=== PATIENT | male | born 1935 | race Caucasian/White ===

== ENCOUNTER 2020-04-29 09:52 | Outpatient (NON) | payer MEDICARE, BC, SELFPAY ==
[2020-04-29 21:13] LABS: SARS-CoV-2 RNA PCR Negative
== END 2020-04-29 09:53 ==
PROVIDERS: Visit Provider Registered Nurse
DX: Z20.828 Contact with and (suspected) exposure to other viral communicable diseases (principal); R43.2 Parageusia; J34.89 Other specified disorders of nose and nasal sinuses; R53.83 Other fatigue
CPT/HCPCS: 87635; C9803; U0003

== ENCOUNTER 2021-06-03 15:15 | Outpatient (CLI) | payer MEDICARE, BC, SELFPAY ==
--- NOTE | ~2021-06-03 | MR_ITS ---
EXAMINATION: MR brain/brain stem wo/w con DATE: 06/03/2021 17:01 INDICATION: Memory loss. Confusion. TECHNIQUE: Magnetic resonance imaging (MRI) of the brain and brainstem was performed without and with 13 mL MultiHance intravenous contrast. Sequences included sagittal and axial T1-weighted FSE, axial diffusion-weighted FS EPI, axial T2*-weighted GRE, axial T2-weighted FLAIR Propeller, and axial T2-we ighted Propeller. Postcontrast sequences included axial, sagittal, and coronal T1-weighted FSE. Appar ent diffusion coefficient (ADC) maps were created. COMPARISON: Sinuses CT 03/17/2016 FINDINGS: There is chronic encephalomalacia in left frontotemporal region. There is diffuse brain vol ume loss. There is an extra-axial fluid collection anterior to left frontal and temporal lobes demarc ated by a membrane with signal equivalent to cerebral spinal fluid, likely a hygroma or chronic subdu ral hematoma. No midline shift. There are scattered areas of nonspecific increased T2-weighted signal intensity in the cerebral white matter. The ventricles are normal in size. There is mild mucosal thi ckening in the paranasal sinuses. The orbits are normal. There is a trace right mastoid effusion. The re are changes of left-sided craniotomy. IMPRESSION: 1. Chronic left frontotemporal encephalomalacia with overlying fluid collection that may be a hygroma or chronic subdural hematoma, stable from 03/17/16. 2. Moderate nonspecific cerebral white matter disease, which likely represents chronic small vessel i schemic disease. Reviewed, dictated and finalized at location A. R SCHOOL PROGRAM ASSISTANT IMPRESSION: 1. Chronic left frontotemporal encephalomalacia with overlying fluid collection that may be a hygroma or chronic subdural hematoma, stable from 03/17/16. 2. Moderate nonspecific cerebral white matter disease, which likely represents chronic small vessel ischemic disease.
[2021-06-03 16:20] LABS: Estimated Glomerular Filt Rate > 60
== END 2021-06-03 15:16 | disposition home or self-care (01) ==
LOC: ANHIMG 15:22
PROVIDERS: PCP Student in an Organized Health Care Education/Training Program; Visit Provider Student in an Organized Health Care Education/Training Program
DX: R41.3 Other amnesia (principal); Z98.890 Other specified postprocedural states; G93.89 Other specified disorders of brain; R90.82 White matter disease, unspecified
CPT/HCPCS: 70553; A9577

== ENCOUNTER 2022-09-21 14:40 | Inpatient (IN) | payer MEDICARE, BC, SELFPAY ==
[2022-09-21] VITALS (29 sets, daily range): BP systolic 101–185; BP diastolic 62–171; PULSE 63–150; RESP 12–23; TEMP 36.4–37.2; O2SAT 94–99; BMI 20.5
--- NOTE | ~2022-09-21 | CT_ITS ---
CT head without contrast Indication: Word finding difficulties Technique: Serial scans were obtained through the brain without the administration of contrast. Dose reduction technique was used on this scan by utilizing automated exposure control and iterative recon struction technique. The dose-length product (DLP) was 605.33 mGy-cm. Findings: There is no evidence of acute intracranial hemorrhage, mass lesion, or acute infarct. There is probable postsurgical encephalomalacia involving the left anterior temporal lobe and left frontal lobe, with chronic left frontal subdural hygroma present. The ventricles and subarachnoid spaces are dilated, consistent with moderate atrophy. Low attenuation regions are seen within the periventricu lar white matter bilaterally, likely representing changes from chronic microvascular ischemic disease . There is no evidence of edema, mass effect or midline shift. The visualized paranasal sinuses and mastoid air cells are clear. Impression: No acute intracranial hemorrhage, mass, or acute infarct. Postsurgical encephalomalacia of the left temporal and left frontal lobes, with left frontal chronic subdural hygroma. Atrophy and chronic white matter changes, as above. Reviewed, dictated and finalized at [facility]. INEEDLE SHIRRER Impression: No acute intracranial hemorrhage, mass, or acute infarct. Postsurgical encephalomalacia of the left temporal and left frontal lobes, with left frontal chronic subdural hygroma. Atrophy and chronic white matter changes, as above.
--- NOTE | ~2022-09-21 | XR_ITS ---
EXAMINATION: XR chest 1V portable DATE: 09/21/2022 15:36 INDICATION: Atrial fibrillation with rapid ventricular response. Chest discomfort. Dizziness and ligh theadedness. TECHNIQUE: frontal view of the chest was obtained. COMPARISON: None FINDINGS: 9 mm calcified nodule at the left apex and calcified left hilar lymph nodes consistent with old granu lomatous disease. No other airspace opacities, pulmonary edema, pleural effusion or pneumothorax. The cardiomediastinal silhouette is normal. Mild degenerative skeletal changes in the spine and bilatera l shoulders. IMPRESSION: 1. No acute cardiopulmonary disease. Reviewed, dictated and finalized at location A. O PROGRAM CHECKER
--- NOTE | 2022-09-21 14:49 | ECG_ITS ---
Measurements Intervals [place] Rate: 138 P: IN: 0 QRS: 9 QRSD: 87 T: 0 QT: 210 QTc: 319 Interpretive Statements ATRIAL FLUTTER/TACHYCARDIA WITH RAPID VENTRICULAR RESPONSE INCOMPLETE RIGHT BUNDLE BRANCH BLOCK ST ABNORMALITY IN DIFFUSE LEADS- CONSIDER ISCHEMIA ABNORMAL ECG NO PREVIOUS ECG AVAILABLE FOR COMPARISON Electronically Signed On 09-22-2022 6:58:34 FEATHEREDGE MACHINE OPERATOR by Miquel Cervantes D.O.
[2022-09-21 15:07] LABS: Basophils Percent Auto 0.3 % (0.2-1.2); Eosinophils Percent Auto 0.5 % (0-4.4); Hematocrit 39.8 % (42.0-52.0); Hemoglobin 13.6 g/dL (14.0-18.0); Immature Granulocyte Absolute 0.01 K/mm3 (0.00-0.031); Immature Granulocyte Percent A 0.3 % (0-0.5); Lymphocytes Absolute Auto 1.54 K/mm3 (0.9-3.2); Lymphocytes Percent Auto 38.8 % (18.3-44.2); Mean Corpuscular HGB Conc 34.2 g/dl (32-36); Mean Corpuscular Hemoglobin 33.2 pg (26-34); Mean Corpuscular Volume 97.1 fl (80-100); Mean Platelet Volume 9.5 fl (7.4-10.4); Monocytes Absolute Auto 0.2 K/mm3 (0.1-0.6); Neutrophils Absolute Auto 2.2 K/mm3 (1.3-6.7); Neutrophils Percent Auto 55.1 % (45.5-73.1); Platelet Count Result 148 k/mm3 (150-375); Red Cell Distribution Width 11.9 % (11.5-14.5)
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
[2022-09-21 15:14] LABS: Alanine Aminotransferase 24 U/L (6-50); Alkaline Phosphatase 45 U/L (38-126); Anion Gap 8 mmol/L (8-16); Aspartate Amino Transferase 26 U/L (17-59); Bilirubin,Total 0.7 mg/dL (0.2-1.3); Blood Urea Nitrogen 19 mg/dL (9-20); Calcium 9.4 mg/dL (8.4-10.2); Carbon Dioxide 26 mmol/L (22-30); Chloride 102 mmol/L (98-107); Estimated CRCL calculation 44 ml/min; Estimated Glomerular Filt Rate > 60; Glucose 134 mg/dL (65-110); Sodium 136 mmol/L (137-145)
--- NOTE | 2022-09-21 15:17 | ED.ARRPALP ---
HPI - Arrhythmia/Palpitations General Chief Complaint: Arrhythmia/Palpitations Stated Complaint: dizziness, irreg heart rate Time Seen by Provider: 09/21/22 14:51 History of Present Illness HPI narrative: Patient is an 87-year-old male presenting with palpitations. Patient states that he was shopping today when he developed palpitations, chest pressure, lightheadedness. EMS was called and found him to be in A-fib RVR with a rate in the 130s to 140s. States that he continues to feel lightheaded with some chest pressure. States that he has been told that he has an irregular heart rate in the past but he does not currently take any medications for it. Prior to this episode, he was in his normal state of health. Denies recent fevers, shortness of breath, cough, abdominal pain, vomiting, diarrhea, leg swelling. Related Data Allergies Allergy/AdvReac Type Severity Reaction Status Date / Time Penicillins Allergy Mild Verified 07/06/19 12:03 Review of Systems Review of Systems: All systems reviewed & are unremarkable except as noted in HPI and below PMFSH Past Medical History Medical History Hyperlipidemia Hypertension Prostate cancer (2008) Status post radiation. Surgical History Surgical History History of cholecystectomy History of craniotomy (1980) Resection benign cyst. Family History Family History Other Heart disease Hypertension Social History Social History Social History: Surrogate medical decision maker: Landon Roberson, spouse. Code status: Full code. Smoking status: Never smoker Alcohol intake: current Substance use: never Lack of Transportation: No Lack of Food: Never True Current Housing: I Have Housing Concerned About Future Housing: No Difficulty Paying Gas/Electric Bills: No Difficulty Paying for Meds: No Currently Unemployed: No Education: Bachelor's Degree Difficulty w/ Childcare or Family Care: No Additional living arrangements comments: Lives in [place]. lives at [place]. Son Landon lives next door. Additional occupation/education comments: Retired from [employer]. Spiritual care concerns: No Exam Narrative: GENERAL: Mildly distressed secondary to symptoms HEAD: Normocephalic, atraumatic. EYES: PERRLA and EOMI. ENT: Nares clear, no rhinorrhea or epistaxis. Mucous membranes moist. NECK: Supple. CHEST: Clear to auscultation. No respiratory distress. HEART: Irregularly irregular rhythm, tachycardic with rates in the 130s to 150s ABDOMEN: Soft, nontender, nondistended EXTREMITIES: Normal range of motion. No edema. SKIN: Warm, dry, no rash. NEURO: No focal deficits. Alert and oriented x3. PSYCH: Normal mood and affect. Course Vital Signs Vital signs: Vital Signs Pulse Rate 142 H 09/21/22 14:41 Respiratory Rate 17 09/21/22 14:41 Blood Pressure 136/102 H 09/21/22 14:41 Pulse Oximetry 99 09/21/22 14:41 Oxygen Delivery Room Air 09/21/22 14:41 Temperature 97.2 F L 09/23/22 12:00 Pulse Rate 77 09/23/22 12:00 Respiratory Rate 16 09/23/22 12:00 Blood Pressure 157/92 H 09/23/22 12:00 Pulse Oximetry 100 09/23/22 12:00 Oxygen Delivery Room Air 09/23/22 08:00 MDM - Arrhythmia/Palpitations MDM Narrative Medical decision making narrative: Patient is an 87-year-old male presenting with palpitations and lightheadedness. Patient is tachycardic in the 130s to 150s on arrival. Saturating 99% on room air. Blood pressures are adequate 110s to 140s over 80s to 100s. EKG per my interpretation shows atrial flutter with RVR. There are ST depressions that I suspect are rate related. When I went into the room, the patient now appears to be in A-fib, his rate is very irregular. Fluids are ongoing, will give 1
[2022-09-21] MEDS: dilTIAZem 100 MG/100 ML 100 MG/100 ML BAG IV CONT (15:18)
[2022-09-21] MEDS: dilTIAZem HCl INJ 25 MG/5 ML VIAL 10 MG IV PUSH (15:18)
[2022-09-21 15:58] LABS: Magnesium 1.7 mg/dL (1.6-2.3)
[2022-09-21 16:07] LABS: Prothrombin Time 13.1 Seconds (11.1-14.7)
[2022-09-21 16:08] LABS: Partial Thromboplastin Time 25.4 SECONDS (22.3-36.8)
[2022-09-21 16:11] LABS: NT Pro B Type Natriuretic Pept 531 pg/mL (19.9-100); Troponin I < 0.012 ng/mL (0.000-0.034)
--- NOTE | 2022-09-21 16:45 | PM.IMHP ---
H&P: HPI History of Present Illness Date/Time: 09/21/22 16:45 Chief Complaint: Dizziness. Narrative: This is an 87-year-old male with hypertension who presented to the emergency department via EMS from a local establishment for evaluation of dizziness. Patient provides the following history. He was in his usual state of health this morning and was out shopping when he developed sudden onset of weakness, dizziness, and feelings of near-syncope. Bystanders came to the patient's aid and emergency services were contacted. On EMS arrival his blood pressure was stable and he was found to be in atrial fibrillation with rapid ventricular response. He was bolused with 10 mg IV diltiazem and was started on a drip with mild improvement in his rate. He thinks he has a history of atrial fibrillation and he is on diltiazem though I do not see that he is on anticoagulation. He has no sensations of racing heart or irregular heartbeat. He has not had any chest heaviness or discomfort and he denies exertional chest pain. He has not had any nausea or vomiting. No fever, chills, or sweats. No recent cold or flu symptoms. He does not drink much in the way of alcohol. He typically has a cup of coffee in the morning with breakfast and more recently has been drinking iced coffees throughout the day which is new for him. Currently he is resting comfortably and he has no specific complaints. Review of Systems Review of Systems: Twelve systems were reviewed. He admits that his memory has not been great for the last couple of years. In the same amount of time he has had issues with word finding as well. Son states he is at his baseline, nothing has changed. He has no history of stroke to his knowledge. Brain MRI in May 2021 showed chronic left frontotemporal encephalomalacia and moderate nonspecific cerebral white matter disease. He has never been diagnosed with dementia. No vertigo, focal weakness, paresthesias, facial droop, or difficulty swallowing. He lives home alone, his is in [place]. He is typically independent of activities of daily living. Except as documented, all other systems were reviewed and are negative. [facility] Past Medical History Medical History Hyperlipidemia Hypertension Prostate cancer (2008) Status post radiation. Surgical History Surgical History History of cholecystectomy History of craniotomy (1980) Resection benign cyst. Family History Family History (Updated 09/21/22 @ 21:57 by Elham Quevedo PA-C) Other Heart disease Hypertension Social History Social History (Updated 09/21/22 @ 22:05 by Elham Quevedo PA-C) Social History: Surrogate medical decision maker: Landon Roberson, spouse. Code status: Full code. Smoking status: Never smoker Alcohol intake: current Substance use: never Lack of Transportation: No Lack of Food: Never True Current Housing: I Have Housing Concerned About Future Housing: No Difficulty Paying Gas/Electric Bills: No Difficulty Paying for Meds: No Currently Unemployed: No Education: Bachelor's Degree Difficulty w/ Childcare or Family Care: No Additional living arrangements comments: Lives in [place]. lives at [place]. Son Landon lives next door. Additional occupation/education comments: Retired from [employer]. Spiritual care concerns: No Meds Home Medications and Allergies Home Medications Medication Instructions Recorded Confirmed Type diltiazem HCl 120 mg 120 mg PO DAILY 07/06/19 09/21/22 History capsule,extended release 24 hr losartan 50 mg tablet 50 mg PO DAILY 07/06/19 09/21/22 History terazosin 2 mg capsule 2 mg PO DAILY 07/06/19 09/21/22 History Allergies Allergy/AdvReac Type Severity Reaction Status Date / Time Penicillins Allergy Mild Verified 07/06/19 12:03 Vital Signs Eun
--- NOTE | 2022-09-21 18:10 | ECG_ITS ---
Measurements Intervals [place] Rate: 69 P: 81 ID: [id number] QRS: 14 QRSD: 94 T: 35 QT: 418 QTc: 449 Interpretive Statements SINUS RHYTHM SUPRAVENTRICULAR TRIGEMINY INCOMPLETE RIGHT BUNDLE BRANCH BLOCK ABNORMAL ECG NO PREVIOUS ECG AVAILABLE FOR COMPARISON Electronically Signed On 09-22-2022 6:38:12 LOCK UP WORKER by Miquel Cervantes D.O.
[2022-09-21 18:12] LABS: Influenza A QL RT-PCR Negative (Negative); Influenza B QL RT-PCR Negative (Negative); SARS-CoV-2 RNA PCR Negative
[2022-09-21 18:51] LABS: Troponin I 0.068 ng/mL (0.000-0.034)
--- NOTE | 2022-09-21 20:02 | ADMGEN ---
This patient, Sincere Roberson, was admitted to IMU Room 209-01. Patient/family oriented to hospital policies and general routines including ID bracelet, bed and alarms, visiting hours, pain management, procedures, bathroom and other care routines, personal items, smoking policy, room service/diet, and visiting hours. Information on how to activate the Rapid Response Team has been discussed. Patient/Family are encouraged to report perceived risks to care and to ask questions if they do not understand what they are told or what they should do.
[2022-09-21 22:06] LABS: Troponin I 0.285 ng/mL (0.000-0.034)
[2022-09-21] MEDS: dilTIAZem HCL 30 MG TABLET PO (23:52)
[2022-09-21] MEDS: ACETAMINOPHEN 325 MG TABLET 650 MG PO (23:56)
[2022-09-22] VITALS (15 sets, daily range): BP systolic 102–152; BP diastolic 49–79; PULSE 50–109; RESP 14–16; TEMP 36.3–36.9; O2SAT 95–100
[2022-09-22 05:02] LABS: Hematocrit 34.7 % (42.0-52.0); Mean Corpuscular HGB Conc 34.6 g/dl (32-36); Mean Corpuscular Hemoglobin 33.1 pg (26-34); Mean Corpuscular Volume 95.9 fl (80-100); Mean Platelet Volume 9.7 fl (7.4-10.4); Platelet Count Result 155 k/mm3 (150-375); Red Blood Count 3.62 M/mm3 (4.6-6.20); Red Cell Distribution Width 11.9 % (11.5-14.5); White Blood Count 3.8 K/mm3 (4.5-10.0)
[2022-09-22 05:13] LABS: Alanine Aminotransferase 21 U/L (6-50); Albumin Level 3.3 g/dL (3.5-5.1); Alkaline Phosphatase 36 U/L (38-126); Anion Gap 2 mmol/L (8-16); Aspartate Amino Transferase 23 U/L (17-59); Bilirubin,Total 0.6 mg/dL (0.2-1.3); Blood Urea Nitrogen 17 mg/dL (9-20); Calcium 8.9 mg/dL (8.4-10.2); Carbon Dioxide 28 mmol/L (22-30); Chloride 102 mmol/L (98-107); Estimated CRCL calculation 52 ml/min; Estimated Glomerular Filt Rate > 60; Glucose 98 mg/dL (65-110); Magnesium 1.9 mg/dL (1.6-2.3); Potassium 3.9 mmol/L (3.4-5.0); Sodium 132 mmol/L (137-145)
[2022-09-22] MEDS: dilTIAZem HCL 30 MG TABLET PO ×3 (08:49→18:12)
[2022-09-22] MEDS: LOSARTAN POTASSIUM 50 MG TABLET PO (08:49)
[2022-09-22] MEDS: TERAZOSIN HCL 1 MG CAPSULE 2 MG PO (08:49)
--- NOTE | 2022-09-22 10:43 | PM.CNCAR ---
Assessment and Plan Assessment and plan (1) Atrial fibrillation with rapid ventricular response: Code(s): I48.91 - Unspecified atrial fibrillation Status: Acute Assessment and Plan: History of atrial fibrillation. Not on anticoagulation at home. From what I can see from [facility], patient follows with Cardiology at [facility]. Already converted back to sinus rhythm. On Diltazem 120mg PO daily at home. Has been started on Diltiazem 30mg Q6H here, recommend to transition to long-acting Diltiazem prior to discharge. Not on anticoagulation as an outpatient. Will defer anticoagulation to his primary etl tester as an outpatient. If patient has recurrences of AFIB, can increase PO Diltiazem if blood pressure allows, or start beta miguelina. Cardiology will sign off at this time. (2) Elevated troponin: Code(s): R77.8 - Other specified abnormalities of plasma proteins Status: Acute Assessment and Plan: Troponin of 0.068 and 0.285. In the setting of AFIB with RVR. No chest pain. Likely demand ischemia from AFIB with RVR rather than ACS. Initial EKG here showed atrial flutter with RVR with HR 138BPM, noted with diffuse ST depressions. Repeat EKG when in sinus without the depressions. Patient likely has underlying CAD, however, is without any chest pain. TTE 09/22 shows LVEF >70% without regional wall motion abnormalities, mildly enlarged RV, mildly enlarged RA, no significant valvular disease. No further inpatient workup at this time. History of Present Illness History of Present Illness Consult date/time: 09/22/22 10:43 Requesting physician: Jason Henley MD Consult reason: atrial fibrillation Reason For Visit: a fib with vr Narrative: We are consulted for atrial fibrillation with RVR. This is an 87-year-old male with a history of hypertension who presented to the ER for evaluation of dizziness. Patient reported that he was in his usual state of health when he developed weakness, dizziness. On EMS arrival, he was noted to be in atrial fibrillation. He was given 10mg IV Diltazem and started on a drip. Patient converted to sinus rhythm. Dilt drip stopped and patient restarted on PO Diltiazem. CT brain pending as previous MRI showed possible chronic subdural hematomas. Patient tells me he has a history of atrial fibrillation. Not on anticoagulation at home. From what I can see from [facility], patient follows with Cardiology at [facility]. Review of Systems Review of Systems: All systems reviewed & are unremarkable except as noted in HPI and below (HPI) [facility] Past Medical History Medical History Hyperlipidemia Hypertension Prostate cancer (2008) Status post radiation. Surgical History Surgical History History of cholecystectomy History of craniotomy (1980) Resection benign cyst. Family History Family History Other Heart disease Hypertension Social History Social History Social History: Surrogate medical decision maker: Landon Roberson, spouse. Code status: Full code. Smoking status: Never smoker Alcohol intake: current Substance use: never Lack of Transportation: No Lack of Food: Never True Current Housing: I Have Housing Concerned About Future Housing: No Difficulty Paying Gas/Electric Bills: No Difficulty Paying for Meds: No Currently Unemployed: No Education: Bachelor's Degree Difficulty w/ Childcare or Family Care: No Additional living arrangements comments: Lives in [place]. lives at [place]. Son Landon lives next door. Additional occupation/education comments: Retired from [employer]. Spiritual care concerns: No Meds Home Medications and Allergies Home Medications Medication Instructions Recorded
--- NOTE | 2022-09-22 11:56 | PM.IMPN ---
Progress Note: A&P Assessment and Plan (1) Atrial fibrillation with rapid ventricular response: Code(s): I48.91 - Unspecified atrial fibrillation Status: Acute Assessment and Plan: Patient reports he does not follow with home and family living professor. Heart rate controlled. 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 Await cardiac evaluation Echo pending (2) Elevated troponin: Code(s): R77.8 - Other specified abnormalities of plasma proteins Status: Acute (3) Hypertension: Code(s): I10 - Essential (primary) hypertension Status: Acute Subjective Date/time seen: 09/22/22 11:56 No new complaints, heart rate controlled Exam Narrative: General: Well-developed, nontoxic-appearing elderly gentleman supine in bed no acute distress. Weight: 63 kg. BMI: 20.5. HEENT: Left scalp defect from prior craniotomy. Wearing corrective lenses. PERRL, EOMI. Sclera anicteric. Oral mucosa moist. Neck: Supple. No obvious carotid bruits. Respiratory: Respirations are nonlabored and lungs are clear to auscultation bilaterally. Cardiovascular: Irregularly irregular rate and rhythm. Gastrointestinal: Abdomen is soft, nontender, and nondistended with positive bowel sounds. Skin: Warm and dry. No rash or lesions on limited exam. Extremities: No cyanosis, clubbing, or edema. Radial and pedal pulses intact. Neurological: Alert and oriented x4 though he has evidence of memory loss. Cranial nerves 2-12 are grossly intact. Speech is clear but he does have troubles coming up with words that he wants to say. Son reports that this is chronic and unchanged for the last year or more. No facial asymmetry. Hand mold finisher and foot pushes equal bilaterally. No gross focal deficits to casual conversation. Psychiatric: Pleasant and cooperative with appropriate mood and affect. Evidence of memory loss. Objective Data Vital Signs Vital Signs: Vital Signs - 24 hr 09/21/22 14:41 09/21/22 14:49 09/21/22 15:18 Temperature Pulse Rate 142 H 129 H 150 H Respiratory Rate 17 Blood Pressure 136/102 H 147/127 H Pulse Oximetry 99 Oxygen Delivery Room Air 09/21/22 15:34 09/21/22 15:49 09/21/22 16:30 Temperature Pulse Rate 136 H 141 H 150 H Respiratory Rate 20 22 H Blood Pressure 144/112 H Pulse Oximetry 98 95 Oxygen Delivery 09/21/22 16:07 09/21/22 16:15 09/21/22 16:16 Temperature Pulse Rate 129 H 137 H 144 H Respiratory Rate 17 12 17 Blood Pressure 107/93 H Pulse Oximetry 99 97 97 Oxygen Delivery 09/21/22 16:26 09/21/22 16:30 09/21/22 16:31 Temperature Pulse Rate 147 H 143 H 148 H Respiratory Rate 18 18 23 H Blood Pressure 144/112 H 185/171 H Pulse Oximetry 97 97 97 Oxygen Delivery 09/21/22 16:33 09/21/22 16:46 09/21/22 16:47 Temperature Pulse Rate 137 H 148 H 141 H Respiratory Rate 20 16 20 Blood Pressure 126/100 H 101/73 Pulse Oximetry 97 97 97 Oxygen Delivery 09/21/22 17:15 09/21/22 17:16 09/21/22 17:30 Temperature Pulse Rate 115 H 127 H 75 Respiratory Rate 15 17 15 Blood Pressure 114/101 H Pulse Oximetry 94 95 96 Oxygen Delivery 09/21/22 17:48 09/21/22 18:05 09/21/22 18:20 Temperature Pulse Rate 73 78 64 Respiratory Rate 15 17 16 Blood Pressure 107/62 Pulse Oximetry 97 97 97 Oxygen Delivery 09/21/22 18:30 09/21/22 18:31 09/21/22 19:02 Temperature Pulse Rate 67 63 75 Respiratory Rate 12 15 15 Blood Pressure 107/68 Pulse Oximetry 98 98 97 Oxygen Delivery 09/21/22 19:22 09/21/22 19:32 09/21/22 20:10 Temperature 98.9 F 97.6 F Pulse Rate 74 65 89 Respiratory Rate 14 12 20 Blood Pressure 120/74 113/63 Pulse Oximetry 97 98 98 Oxygen Delivery 09/21/22 21:39 09/21/22 22:00 09/21/22 23:06 Temperature Pulse Rate 67 65 67 Respiratory Rate Blood Pressure Pulse Oximetry Oxygen Delivery 09/22/22 00:00 09/22/22 00:00 09/22/22 00:00 Temperature 97.6
--- NOTE | 2022-09-22 22:14 | ECHO_ITS ---
Patient Info Name: Sincere Roberson Age: 87 years : 1935 Gender: Male Ht: 69 in Wt: 139 lbs BSA: 1.75 m2 HR: 52 bpm BP: 120 / 69 mmHg Heart Rhythm: Sinus Rhythm Technical Quality: Fair Exam Date: 09/22/2022 9:04 AM Exam Location: [facility] Patient Status: Outpatient Admit Date: 09/21/2022 Staff Ordering Physician: Elham Quevedo PA-C Gas Meter Installer Helper: Silva Mansfield RDCS Attending Provider: Vasiliy Saeed MD Referring Physician: Sae MOLINA; Exam Type: CA echo doppler color flow Study Info Indications - afib/rvr, elevated troponin, hypertension Complete two-dimensional, color flow and Doppler transthoracic echocardiogram is performed. Summary 1. Complete two-dimensional, color flow and Doppler transthoracic echocardiogram is performed. 2. Left ventricular chamber dimension is normal. 3. Left ventricular systolic function is normal, estimated at >70%. 4. The left ventricular diastolic function is grade I diastolic dysfunction. 5. Right ventricular chamber dimension is mildly enlarged. 6. Right ventricular systolic function is normal. 7. Right atrial chamber dimension is mildly enlarged. 8. There is moderate aortic valve sclerosis. 9. The mitral valve annulus is moderately calcified. 10. The mitral valve has thickened leaflets. 11. There is trace mitral valve regurgitation. 12. There is mild tricuspid valve regurgitation. Left Ventricle Left ventricular chamber dimension is normal. Left ventricular systolic function is normal, estimated at >70%. There is no increased left ventricular wall thickness. The left ventricular diastolic function is grade I diastolic dysfunction. Right Ventricle Right ventricular chamber dimension is mildly enlarged. Right ventricular systolic function is normal. Left Atria Left atrial chamber dimension is normal. Right Atria Right atrial chamber dimension is mildly enlarged. Atrial Septum Intact interatrial septum visualized by color flow imaging. Aortic Valve The aortic valve is not well visualized. There is moderate aortic valve sclerosis. There is no aortic valve stenosis. There is no aortic valve regurgitation. Pulmonic Valve The pulmonic valve is not well visualized. Mitral Valve The mitral valve has thickened leaflets. There is trace mitral valve regurgitation. The mitral valve annulus is moderately calcified. Tricuspid Valve There is mild tricuspid valve regurgitation. Pericardium/Pleural There is no pericardial effusion. Inferior Vena Cava Normal inferior vena cava with >50% collapse upon inspiration consistent with normal right atrial pressure, 3 mmHg. Aorta The aortic root size at the sinus of Valsalva is normal. Left Ventricular Outflow Tract Name Value Normal LVOT 2D LVOT Diameter 2.0 cm LVOT Doppler LVOT Peak Gradient 4 mmHg LVOT Mean Gradient 1 mmHg LVOT VTI 22 cm LVOT VTI/AV VTI Ratio 1.0 LVOT Stroke Volume 73 ml LVOT CO
[2022-09-23] VITALS: PULSE 61
[2022-09-23 04:00] VITALS: PULSE 56
[2022-09-23 08:00] VITALS: BP 166/91; PULSE 55; PULSE 91; RESP 16; TEMP 36.1; O2SAT 98
[2022-09-23 08:16] VITALS: BP 112/74
[2022-09-23 08:17] VITALS: BP 112/65
[2022-09-23] MEDS: TERAZOSIN HCL 1 MG CAPSULE 2 MG PO (08:29)
[2022-09-23] MEDS: LOSARTAN POTASSIUM 50 MG TABLET PO (08:30)
--- NOTE | 2022-09-23 11:55 | PM.DS ---
DS: Admitting Diagnosis Discharge Date September 23, 2022 Admitting Diagnosis AFib RVR DS: Discharge Diagnosis Discharge Diagnosis (1) Atrial fibrillation with rapid ventricular response: Code(s): I48.91 - Unspecified atrial fibrillation Status: Acute Assessment and Plan: Patient reports he does not follow with hog buyer. Heart rate controlled. 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 Await cardiac evaluation Echo pending (2) Elevated troponin: Code(s): R77.8 - Other specified abnormalities of plasma proteins Status: Acute (3) Hypertension: Code(s): I10 - Essential (primary) hypertension Status: Acute DS: Summary Hospital Course Hospital Course: Patient is an 87-year-old gentleman has a history of atrial fibrillation. He has been noncompliant with medications. Came in with some dizziness and palpitations and found have AFib with RVR. We resumed his home medications and his symptoms improved his heart rate improved. He will need a follow-up with a new hog buyer. I have given him information to the hog buyer here. I have also given him information for a new primary care physician as he is not happy with his current primary care physician. Nurse has communicated this to the son who helps take care of the patient. She does have underlying dementia and remembering taking and to take his medications is an issue at times likely. Lengthy discussion with the patient he is understanding that he needs to follow up with the hog buyer follow-up primary care physician. Time Spent with Patient Time attestation: Total time spent providing and/or coordinating discharge services: Exam Narrative: General: Well-developed, nontoxic-appearing elderly gentleman supine in bed no acute distress. Weight: 63 kg. BMI: 20.5. HEENT: Left scalp defect from prior craniotomy. Wearing corrective lenses. PERRL, EOMI. Sclera anicteric. Oral mucosa moist. Neck: Supple. No obvious carotid bruits. Respiratory: Respirations are nonlabored and lungs are clear to auscultation bilaterally. Cardiovascular: Irregularly irregular rate and rhythm. Gastrointestinal: Abdomen is soft, nontender, and nondistended with positive bowel sounds. Skin: Warm and dry. No rash or lesions on limited exam. Extremities: No cyanosis, clubbing, or edema. Radial and pedal pulses intact. Neurological: Alert and oriented x4 though he has evidence of memory loss. Cranial nerves 2-12 are grossly intact. Speech is clear but he does have troubles coming up with words that he wants to say. Son reports that this is chronic and unchanged for the last year or more. No facial asymmetry. Hand flash designer and foot pushes equal bilaterally. No gross focal deficits to casual conversation. Psychiatric: Pleasant and cooperative with appropriate mood and affect. Evidence of memory loss. Discharge Plan Discharge Attending physician on discharge: Jason Henley Consulting providers: Camille Vincent Discharging Clinician: Jason Henley Patient Disposition: Home, Self-Care Activity: no preference Diet: as tolerated Patient Instructions: Antibiotic Form, Diltiazem (By mouth) Stand Alone Forms: General Discharge Information Follow-up/Referrals: Camille Vincent, OYSTER SORTER-C [Advanced Practice Nurse] - Sebastian,DO Sandip [Primary Care Provider] - Discharge Medications: Continued losartan 50 mg tablet 50 mg PO DAILY terazosin 2 mg capsule 2 mg PO DAILY diltiazem HCl 120 mg capsule,extended release 24hr 120 mg PO DAILY Date of admission: 09/22/22 15:37 Primary Care Provider: Sebastian,Sandip Admitting Provider: Vasiliy Saeed Attending physician on admission: Vasiliy Saeed Condition: Guarded Prognosis
[2022-09-23 12:00] VITALS: BP 157/92; PULSE 53; PULSE 77; RESP 16; TEMP 36.2; O2SAT 100
[2022-09-23] MEDS: dilTIAZem HCL 30 MG TABLET PO (13:20)
== END 2022-09-23 13:58 | disposition home or self-care (01) | DRG 308 ==
LOC: ANHED 15:17 → ANHIMU 19:23
PROVIDERS: Emergency Medicine; Physician Assistant; Admitting Provider Internal Medicine; Emergency Provider Emergency Medicine; PCP Student in an Organized Health Care Education/Training Program; Visit Provider Chiropractor
DX: I48.91 Unspecified atrial fibrillation (principal); I62.03 Nontraumatic chronic subdural hemorrhage; I24.8 Other forms of acute ischemic heart disease; I10 Essential (primary) hypertension; R79.89 Other specified abnormal findings of blood chemistry; E78.5 Hyperlipidemia, unspecified; I48.92 Unspecified atrial flutter; I25.10 Atherosclerotic heart disease of native coronary artery without angina pectoris; Z20.822 Contact with and (suspected) exposure to COVID-19; F03.90 Unspecified dementia, unspecified severity, without behavioral disturbance, psychotic disturbance, mood disturbance, and anxiety; Z91.14 Patient's other noncompliance with medication regimen; Z85.46 Personal history of malignant neoplasm of prostate; Z90.49 Acquired absence of other specified parts of digestive tract
CPT/HCPCS: 36415; 70450; 71045; 80053; 83735; 83880; 84443; 84484; 85025; 85027; 85610; 85730; 87636; 93005; 93306; 96365; 96366; 96376; 99285; A9270; G0378

== ENCOUNTER 2022-10-21 11:47 | Emergency (ER) | payer MEDICARE, BC, SELFPAY ==
[2022-10-21 11:52] VITALS: BP 124/83; PULSE 94; RESP 18; TEMP 36.5; O2SAT 100
--- NOTE | 2022-10-21 13:55 | ED.GENADULT ---
HPI - General Adult General Chief complaint: Recheck/Abnormal Lab/Rx <Charlie Murphy PA-C - Last Filed: 10/21/22 19:30> Stated complaint: medication refill? <Charlie Murphy PA-C - Last Filed: 10/21/22 19:30> Time Seen by Provider: 10/21/22 12:14 <Charlie Murphy PA-C - Last Filed: 10/21/22 19:30> Source: patient <DANGELO Mralow Last Filed: 10/21/22 19:30> Mode of arrival: ambulatory <Charlie Murphy PA-C - Last Filed: 10/21/22 19:30> Limitations: no limitations <Charlie Murphy PA-C - Last Filed: 10/21/22 19:30> History of Present Illness HPI narrative: This is an 87-year-old male with PMH of HLD, HTN, prostate cancer, A-fib who presents to the ED with chief complaint of medication refill. States he is not having any palpitations, chest pain, shortness of breath or cough. Denies fevers, chills, weakness. He is asymptomatic at this time. He is unsure what the medications are called. States that he has an appointment with a new PCP coming up but has been a month since he got discharged from the hospital so his medications are out. No further complaints. <Charlie Murphy PA-C - Last Filed: 10/21/22 19:30> Related Data Allergies/adverse reactions: Allergies Allergy/AdvReac Type Severity Reaction Status Date / Time Penicillins Allergy Mild Verified 07/06/19 12:03 <DANGELO Marlow Last Filed: 10/21/22 19:30> Review of Systems Review of Systems: CONSTITUTIONAL: Denies fever, chills, or sweats. EYES: Denies visual changes, redness, or discharge. ENT: Denies rhinorrhea, congestion, sore throat, or otalgia. CARDIOVASCULAR: Denies chest pain, palpitations, or edema. RESPIRATORY: Denies cough or dyspnea. GASTROINTESTINAL: Denies abdominal pain, nausea, vomiting, or diarrhea. GENITOURINARY: Denies dysuria or hematuria. SKIN: Denies rash or itching. MUSCULOSKELETAL: Denies back pain, joint pain, or myalgia. NEUROLOGIC: Denies headache, numbness, dizziness, or weakness. PSYCHIATRIC: Denies anxiety or depression. <Charlie Murphy PA-C - Last Filed: 10/21/22 19:30> [facility] Past Medical History Medical History: Medical History Hyperlipidemia Hypertension Prostate cancer (2008) Status post radiation. <Charlie Murphy PA-C - Last Filed: 10/21/22 19:30> Surgical History Surgical History: Surgical History History of cholecystectomy History of craniotomy (1980) Resection benign cyst. <Charlie Murphy PA-C - Last Filed: 10/21/22 19:30> Family History Family History: Family History Other Heart disease Hypertension <Charlie Murphy PA-C - Last Filed: 10/21/22 19:30> Social History Social History: Social History Social History: Surrogate medical decision maker: Landon Roberson, spouse. Code status: Full code. Smoking status: Never smoker Alcohol intake: current Substance use: never Lack of Transportation: No Lack of Food: Never True Current Housing: I Have Housing Concerned About Future Housing: No Difficulty Paying Gas/Electric Bills: No Difficulty Paying for Meds: No Currently Unemployed: No Education: Bachelor's Degree Difficulty w/ Childcare or Family Care: No Additional living arrangements comments: Lives in [place]. lives at [place]. Son Landon lives next door. Additional occupation/education comments: Retired from [employer]. Spiritual care concerns: No <Charlie Murphy PA-C - Last Filed: 10/21/22 19:30> Exam Narrative: GENERAL: Well-appearing, well-nourished, and in no acute distress. HEAD: Normocephalic, atraumatic. EYES: PERRLA and EOMI. ENT: Nares clear, no rhinorrhea or epistaxis. Mucous membranes moist. Oropharynx without tonsillar hypertrophy exudate or other lesions. NECK: Sup
[2022-10-21 14:21] VITALS: BP 130/86; PULSE 90; RESP 16; O2SAT 98
== END 2022-10-21 14:21 | disposition home or self-care (01) ==
PROVIDERS: Emergency Provider Physician Assistant
DX: Z76.0 Encounter for issue of repeat prescription (principal); I10 Essential (primary) hypertension; I48.91 Unspecified atrial fibrillation; E78.5 Hyperlipidemia, unspecified; Z85.46 Personal history of malignant neoplasm of prostate; Z92.3 Personal history of irradiation
CPT/HCPCS: 99281

== ENCOUNTER 2022-11-02 10:04 | Outpatient (CLI) | payer MEDICARE, BC, SELFPAY ==
[2022-11-02 11:22] LABS: Cholesterol 217 mg/dL (0-200); HDL Direct 43 mg/dL; Triglycerides 105 mg/dL (<150)
[2022-11-02 11:33] LABS: LDL Cholesterol Direct 132 mg/dL
[2022-11-02 11:51] LABS: Prostate Specific Antigen 1.1 ng/mL (< OR = 4.0)
== END 2022-11-02 10:05 | disposition home or self-care (01) ==
PROVIDERS: PCP Family Medicine; Visit Provider Physician Assistant Medical
DX: E78.2 Mixed hyperlipidemia (principal); Z12.5 Encounter for screening for malignant neoplasm of prostate
CPT/HCPCS: 36415; 80061; 84153; G0103

== ENCOUNTER 2023-05-03 13:28 | Outpatient (CLI) | payer MEDICARE, BC, SELFPAY ==
--- NOTE | ~2023-05-03 | CT_ITS ---
EXAMINATION: CT brain wo con DATE: 05/03/2023 14:04 INDICATION: Headache, dizziness. Weakness. History of craniotomy. TECHNIQUE: Computed tomography (CT) of the head was performed without intravenous contrast. The mA wa s adjusted according to patient size. Iterative reconstruction technique was employed. Exam dose: 68 1.00 mGy-cm total exam DLP. COMPARISON: 09/22/2022 CT brain 06/03/2021 MRI brain/brainstem FINDINGS: Again noted is chronic left frontotemporal encephalomalacia and overlying chronic subdural hematoma or hygroma, and overlying bone flap craniotomy, not significantly changed since 09/22/2022. Prominent central and cortical cerebral atrophy is also are again noted. There is nonspecific diminished attenuation of the cerebral white matter, likely due to chronic small vessel ischemic changes. There are bilateral carotid siphon internal carotid artery calcifications. Vertebrobasilar artery calcifications are also noted. No intracranial mass lesion or hemorrhage, midline shift or new mass effect is noted. No new subdural or epidural hematoma. No fracture or bone destruction of the cranial vault. IMPRESSION: No significant change since 09/22/2022 Reviewed, dictated and finalized at [facility]. Reviewed, dictated and finalized at [facility].
[2023-05-03 14:38] LABS: Basophils Percent Auto 0.2 % (0.2-1.2); Hematocrit 37.7 % (42.0-52.0); Hemoglobin 12.7 g/dL (14.0-18.0); Immature Granulocyte Absolute 0.01 K/mm3 (0.00-0.031); Immature Granulocyte Percent A 0.2 % (0-0.5); Lymphocytes Absolute Auto 1.06 K/mm3 (0.9-3.2); Lymphocytes Percent Auto 17.4 % (18.3-44.2); Mean Corpuscular HGB Conc 33.7 g/dl (32-36); Mean Corpuscular Volume 100.8 fl (80-100); Mean Platelet Volume 9.5 fl (7.4-10.4); Monocytes Absolute Auto 0.2 K/mm3 (0.1-0.6); Monocytes Percent Auto 3.9 % (2.6-8.5); Neutrophils Absolute Auto 4.8 K/mm3 (1.3-6.7); Neutrophils Percent Auto 78.3 % (45.5-73.1); Platelet Count Result 168 k/mm3 (150-375); Red Blood Count 3.74 M/mm3 (4.6-6.20); Red Cell Distribution Width 12.3 % (11.5-14.5); White Blood Count 6.1 K/mm3 (4.5-10.0)
[2023-05-03 14:50] LABS: Alanine Aminotransferase 16 U/L (6-50); Albumin Level 4.2 g/dL (3.5-5.1); Alkaline Phosphatase 38 U/L (38-126); Anion Gap 7 mmol/L (8-16); Aspartate Amino Transferase 21 U/L (17-59); Bilirubin,Total 0.7 mg/dL (0.2-1.3); Blood Urea Nitrogen 20 mg/dL (9-20); Calcium 9.9 mg/dL (8.4-10.2); Carbon Dioxide 25 mmol/L (22-30); Chloride 102 mmol/L (98-107); Cholesterol 235 mg/dL (0-200); Estimated Glomerular Filt Rate > 60; Glucose 119 mg/dL (65-110); HDL Direct 50 mg/dL; Potassium 4.2 mmol/L (3.4-5.0); Sodium 134 mmol/L (137-145); Triglycerides 100 mg/dL (<150)
[2023-05-03 15:01] LABS: LDL Cholesterol Direct 127 mg/dL
[2023-05-03 17:39] LABS: Iron 109 ug/dL (49-181)
[2023-05-03 17:54] LABS: Percent Iron Saturation 36 % (20-50)
== END 2023-05-03 13:29 | disposition home or self-care (01) ==
PROVIDERS: PCP Family Medicine; Visit Provider Physician Assistant Medical
DX: E78.2 Mixed hyperlipidemia (principal); R53.83 Other fatigue; D64.9 Anemia, unspecified; R41.3 Other amnesia
CPT/HCPCS: 36415; 70450; 80053; 80061; 82728; 83540; 83550; 85025

== ENCOUNTER 2023-05-14 16:42 | Outpatient (CLI) | payer MEDICARE, BC, SELFPAY ==
[2023-05-14 17:53] LABS: Basophils Percent Auto 0.2 % (0.2-1.2); Eosinophils Percent Auto 0.9 % (0-4.4); Hematocrit 37.5 % (42.0-52.0); Hemoglobin 12.5 g/dL (14.0-18.0); Immature Granulocyte Absolute 0.01 K/mm3 (0.00-0.031); Immature Granulocyte Percent A 0.2 % (0-0.5); Lymphocytes Absolute Auto 1.28 K/mm3 (0.9-3.2); Mean Corpuscular HGB Conc 33.3 g/dl (32-36); Mean Corpuscular Hemoglobin 33.7 pg (26-34); Mean Corpuscular Volume 101.1 fl (80-100); Mean Platelet Volume 9.5 fl (7.4-10.4); Monocytes Absolute Auto 0.4 K/mm3 (0.1-0.6); Monocytes Percent Auto 8.1 % (2.6-8.5); Neutrophils Absolute Auto 2.7 K/mm3 (1.3-6.7); Neutrophils Percent Auto 61.6 % (45.5-73.1); Platelet Count Result 187 k/mm3 (150-375); Red Blood Count 3.71 M/mm3 (4.6-6.20); Red Cell Distribution Width 12.7 % (11.5-14.5); White Blood Count 4.4 K/mm3 (4.5-10.0)
[2023-05-14 17:56] LABS: Appearance Urine Clear (Clear); Bilirubin Urine Negative (Negative); Blood Urine Negative (Negative); Color Urine Yellow (Yellow); Glucose Urine UA Negative (Negative); Ketones Urine Negative (Negative); Leukocyte Esterase Ur Negative LEU/UL (Negative); Nitrate Urine Negative (Negative); Protein Urine Negative (Negative)
[2023-05-14 18:16] LABS: Add Urine Microscopic? NO
== END 2023-05-14 16:43 | disposition home or self-care (01) ==
PROVIDERS: PCP Family Medicine; Visit Provider Physician Assistant Medical
DX: D64.9 Anemia, unspecified (principal); R30.0 Dysuria
CPT/HCPCS: 36415; 81003; 85025

== ENCOUNTER 2023-11-17 12:01 | Outpatient (CLI) | payer MEDICARE, BC, SELFPAY ==
[2023-11-17 12:27] LABS: Alanine Aminotransferase 15 U/L (6-50); Albumin Level 4.3 g/dL (3.5-5.1); Alkaline Phosphatase 38 U/L (38-126); Anion Gap 6 mmol/L (4-12); Aspartate Amino Transferase 22 U/L (17-59); Bilirubin,Total 0.6 mg/dL (0.2-1.3); Blood Urea Nitrogen 22 mg/dL (9-20); Calcium 10.1 mg/dL (8.4-10.2); Carbon Dioxide 27 mmol/L (22-30); Chloride 106 mmol/L (98-107); Cholesterol 245 mg/dL (0-200); Estimated Glomerular Filt Rate > 60; Glucose 96 mg/dL (65-110); HDL Direct 53 mg/dL; Potassium 4.2 mmol/L (3.4-5.0); Sodium 139 mmol/L (137-145); Triglycerides 134 mg/dL (<150)
[2023-11-17 12:38] LABS: LDL Cholesterol Direct 141 mg/dL
== END 2023-11-17 12:02 | disposition home or self-care (01) ==
LOC: ANHLAB 12:03
PROVIDERS: PCP Family Medicine; Visit Provider Physician Assistant Medical
DX: E78.2 Mixed hyperlipidemia (principal); F41.9 Anxiety disorder, unspecified
CPT/HCPCS: 36415; 80053; 80061; 84443

== ENCOUNTER 2024-03-15 11:44 | Outpatient (CLI) | payer MEDICARE, BC, SELFPAY ==
[2024-03-15 12:13] LABS: Hemoglobin 13.1 g/dL (14.0-18.0); Mean Corpuscular HGB Conc 33.6 g/dl (32-36); Mean Corpuscular Hemoglobin 33.9 pg (26-34); Platelet Count Result 168 k/mm3 (150-375); Red Blood Count 3.86 M/mm3 (4.6-6.20); Red Cell Distribution Width 12.5 % (11.5-14.5); White Blood Count 4.3 K/mm3 (4.5-10.0)
[2024-03-15 12:25] LABS: Alanine Aminotransferase 15 U/L (6-50); Albumin Level 3.8 g/dL (3.5-5.1); Alkaline Phosphatase 36 U/L (38-126); Anion Gap 6 mmol/L (4-12); Aspartate Amino Transferase 21 U/L (17-59); Bilirubin,Total 0.6 mg/dL (0.2-1.3); Blood Urea Nitrogen 19 mg/dL (9-20); Calcium 9.5 mg/dL (8.4-10.2); Carbon Dioxide 29 mmol/L (22-30); Chloride 102 mmol/L (98-107); Cholesterol 208 mg/dL (0-200); Estimated Glomerular Filt Rate > 60; Glucose 95 mg/dL (65-110); HDL Direct 47 mg/dL; Potassium 3.9 mmol/L (3.4-5.0); Sodium 137 mmol/L (137-145); Triglycerides 122 mg/dL (<150)
[2024-03-15 12:36] LABS: LDL Cholesterol Direct 117 mg/dL
== END 2024-03-15 11:45 | disposition home or self-care (01) ==
PROVIDERS: PCP Family Medicine; Visit Provider Physician Assistant Medical
DX: R53.83 Other fatigue (principal); I48.92 Unspecified atrial flutter; I48.91 Unspecified atrial fibrillation; I10 Essential (primary) hypertension; E78.2 Mixed hyperlipidemia
CPT/HCPCS: 36415; 80053; 80061; 85027

== ENCOUNTER 2024-06-19 16:28 | Outpatient (CLI) | payer MEDICARE, BC, SELFPAY ==
[2024-06-23 05:44] LABS: Methylmalonic Acid 217 nmol/L (85-423)
[2024-06-23 18:24] LABS: Red Blood Cell Folate 559 ng/mL RBC (>280)
== END 2024-06-19 16:29 | disposition home or self-care (01) ==
LOC: ANHLAB 16:32
PROVIDERS: PCP Family Medicine; Visit Provider Psychiatry & Neurology Neurology
DX: F03.90 Unspecified dementia, unspecified severity, without behavioral disturbance, psychotic disturbance, mood disturbance, and anxiety (principal); E55.9 Vitamin D deficiency, unspecified
CPT/HCPCS: 36415; 82607; 82652; 82747; 83921

== ENCOUNTER 2024-11-24 11:32 | Observation (INO) | payer MEDICARE, BC, SELFPAY ==
[2024-11-24] VITALS (14 sets, daily range): BP systolic 120–177; BP diastolic 80–90; PULSE 43–65; RESP 14–20; TEMP 36.5–36.8; O2SAT 96–100; BMI 22.2
--- NOTE | ~2024-11-24 | XR_ITS ---
XR chest 2V Ordering provider: Estela Radofrd MD History: 89 years Male with . cp . Comparison: September 21, 2022 FINDINGS: MEDIASTINUM: The cardiac silhouette is slightly enlarged. LUNGS: No infiltrates, effusions or pneumothorax. OTHER: No free air under the diaphragm. Degenerative changes of the spine. IMPRESSION: No acute cardiopulmonary pathology. Reviewed, dictated and finalized at location A.
--- NOTE | ~2024-11-24 | NM_ITS ---
EXAMINATION: NM salo stress w perfusion DATE: 11/25/2024 12:51 INDICATION: Chest pain. Elevated troponin level TECHNIQUE: Rest images were obtained following intravenous administration of 10.6 mCi Tc99m tetrofosm in (Myoview). The patient was infused intravenously with Lexiscan (Regadenoson). Then, 33.4 mCi Tc99m tetrofosmin (Myoview) was administered intravenously, and stress images were obtained. Data was luisa nstructed into short axis and horizontal and vertical long axis SPECT images. Gated SPECT images were also obtained. COMPARISON: None. FINDINGS: There is no definite reversible or fixed perfusion abnormality to suggest ischemia or infar ction. There is normal left ventricular chamber size, wall motion and ejection fraction. Left ventr icular ejection fraction measures 55%. IMPRESSION: 1. Normal myocardial perfusion at rest and during stress. 2. Left ventricular ejection fraction measuring 55%. Reviewed, dictated and finalized at location A.
--- NOTE | 2024-11-24 11:35 | ECG_ITS ---
Test Date: 2024-11-24 11:38:16 Measurements Intervals P[place]in Rate: 64 P: 61 OK: 162 QRS: 19 QRSD: 104 T: 40 QT: 417 QTc: 431 Interpretive Statements SINUS RHYTHM INCOMPLETE RIGHT BUNDLE BRANCH BLOCK [90+ ms QRS DURATION, TERMINAL R IN V1/V2, 40+ ms S IN I/aVL/V4/V5/V6] No previous ECG available for comparison Electronically Signed On 11-25-2024 14:37:02 CDT by Tee León M.D.
[2024-11-24] MEDS: ASPIRIN 81 MG CHEWABLE TABLET 324 MG PO (11:48)
[2024-11-24 11:57] LABS: Basophils Percent Auto 0.2 % (0.2-1.2); Eosinophils Percent Auto 0.6 % (0-4.4); Hematocrit 41.9 % (42.0-52.0); Hemoglobin 13.6 g/dL (14.0-18.0); Immature Granulocyte Absolute 0.01 K/mm3 (0.00-0.031); Immature Granulocyte Percent A 0.2 % (0-0.5); Lymphocytes Absolute Auto 1.45 K/mm3 (0.9-3.2); Lymphocytes Percent Auto 28.9 % (18.3-44.2); Mean Corpuscular HGB Conc 32.5 g/dl (32-36); Mean Corpuscular Hemoglobin 32.7 pg (26-34); Mean Corpuscular Volume 100.7 fl (80-100); Mean Platelet Volume 9.3 fl (7.4-10.4); Monocytes Absolute Auto 0.3 K/mm3 (0.1-0.6); Monocytes Percent Auto 5.8 % (2.6-8.5); Neutrophils Absolute Auto 3.2 K/mm3 (1.3-6.7); Neutrophils Percent Auto 64.3 % (45.5-73.1); Platelet Count Result 184 k/mm3 (150-375); Red Blood Count 4.16 M/mm3 (4.6-6.20); Red Cell Distribution Width 12.8 % (11.5-14.5)
[2024-11-24 12:03] LABS: Prothrombin Time 13.8 Seconds (11.1-14.7)
[2024-11-24 12:04] LABS: Partial Thromboplastin Time 27.1 Seconds (22.3-36.8)
[2024-11-24 12:06] LABS: Alanine Aminotransferase 17 U/L (6-50); Albumin Level 3.8 g/dL (3.5-5.1); Alkaline Phosphatase 44 U/L (38-126); Anion Gap 5 mmol/L (4-12); Aspartate Amino Transferase 23 U/L (17-59); Bilirubin,Total 0.5 mg/dL (0.2-1.3); Blood Urea Nitrogen 20 mg/dL (9-20); Calcium 9.3 mg/dL (8.4-10.2); Carbon Dioxide 29 mmol/L (22-30); Chloride 104 mmol/L (98-107); Estimated CRCL calculation 46 ml/min; Estimated Glomerular Filt Rate > 60; Glucose 103 mg/dL (65-110); Lipase 72 U/L (23-300); Potassium 3.8 mmol/L (3.4-5.0); Sodium 138 mmol/L (137-145)
[2024-11-24 12:17] LABS: Troponin I 0.013 ng/mL (0.000-0.034)
--- OUTSIDE RECORDS SUMMARY | 2024-11-24 12:22 | XMS_ITS | Encounter Summary ---
Author Organization [facility] Address [address] [place] [address] Care Team Providers Care Boxing Machine Operator Name Role Phone Sandip Cortes Primary Care Provider + Asia Flores RN Unavailable [phone] Encounter Details Date Type Department Care Team (Late st Contact Info) Description 05/04/2020 Abstract [facility] at [address] [phone] Nik Liang MA Social History Tobacco Use Types Packs/Day Years Used Date Smoking Tobacco: Never Smokeless Tobacco: Never Alcohol Use Standard Drinks/Week Comments Yes 0 (1 standard drink = 0.6 oz pur e alcohol) AUDIT-C Answer Date Recorded Q1: How often do you have a drink containing alc ohol? Monthly or less 04/08/2020 Q2: How many drinks containi ng alcohol do you have on a typical day when you are drinking? 1 or 2 04/08/2020 Q3: How often do you have si x or more drinks on one occasion? Never 04/08/2020 PHQ-2 Answer Date Recorded PHQ-2 Score - If the patient scores above 3, please move on to questions 3-9 3 04/08/2020 Sex and Gender Information Value Date Recorded Sex Assigned at Not on file Legal Sex Male 10:46 AM CDT Gender Identity Not on file Sexual Orientation Not on file COVID-19 Exposure Response Date Recorded In the last month, have you been in contact with someone who was confirmed or suspected to have Coronavirus / COVID-19? Unable to assess 05/05/2020 10:50 AM CD T documented as of this encounter Plan of Treatment Not on file documented as of this encounter Procedures Procedure Name Priority Date/Time Associated Diagnosis Comments SARS-COV-2 COVID-19 ANTIBODY Routine 04/29/2020 documented in this encounter Results * SARS-COV-2 COVID-19 ANTIBODY (04/29/2020) SARS-COV-2 IGG Negative 04/29/2020 us Doc [facility] Abstract PROCEDURES-UNRESULTED Final Result documented in this encounter Visit Diagnoses Not on filedocumented in this encounter Additional Health Concerns Infection Onset Date Last Indicated Resolved Time COVID-19 Rule Out 04/28/2020 04/29/2020 05/07/2020 1:57 PM CDT COVID-19 Rule Out 03/30/2022 03/30/2022 03/30/2022 11:33 AM CDT Assessment Noted Time PHQ-9 Depression Total Score: 10 020 7:53 AM CDT documented as of this encounter Care Teams Boxing Machine Operator Relationship Specialty Start Date End Date Sandip Cortes DO [address] [place] [id number] PCP - General FAMILY PRACTICE 04/08/20 Asia Flores, RN [address] [place] [address] Adventure Challenge Instructor (Ambulatory) REGISTERED NURSE 01/27/22 documented as of this encounter
--- OUTSIDE RECORDS SUMMARY | 2024-11-24 12:22 | XMS_ITS | Clinical Summary ---
Author Organization [facility] Address [address] [place] [address] Care Team Providers Care Clinical Interviewer Name Role Phone Glory Boston MD Primary Care Provider [phone] Source Comments [facility],non-owned Affiliates and Associated Physician Practices is amultiple site organization consisting of ambulatory clinics and hospital sitesin [place], [place], [place] and [place]. This disclosure is being madepursuant to the Care Everywhere program and may not contain all information available regarding this patient. Last updated 18.[facility] Allergies Active Allergy Reactions Criticality Noted Date Comments Hydrochlorothiazide Dizziness 06/11/2017 Penicillins Urticaria 09/04/2011 Medications * Be aware that medications may not be up to date on this document. Alwaysverify current medications with the patient. atorvastatin (LIPITOR) 20 MG tablet Take 20 mg by mouth at bedtime. Active aspirin EC (ECOTRIN) 81 MG tablet Take 81 mg by mouth once daily. Active LORazepam (ATIVAN) 1 MG tablet Take 0.5 mg by mouth every 8 hours as needed Active fluticasone propionate (FLONASE) 50 MCG/ACT nasal spray Okay 2 Sprays into each nostril once daily Active CARTIA XT 120 MG capsule TK 1 C PO QD 3 05/29/2017 Activ e losartan (COZAAR) 50 MG tablet TK 1 T PO QD 3 05/29/2017 Active terazosin (HYTRIN) 2 MG capsule 3 07/17/2017 Active butalbital-acet aminophen-caffe ine (FIORICET) 50-325-40 MG tablet Take 1 tablet by mouth every 4 hours as needed for Headache or Migraine 21 tablet 07/30/2017 Active loperamide (IMODIUM) 2 MG capsule Take 4 mg (2 capsules) now. Take 2 mg (1 capsule) after each loose bowel movement. Do not exceed 16 mg (8 capsules) in a 24 hour period. 30 capsule 01/23/2018 Active dicyclomine (BENTYL) 20 MG tablet Take 1 tablet by mouth every 6 hours as needed (abdominal pain) 20 tablet 07/15/2018 Active Active Problems Problem Noted Date Diagnosed Date Acute cholecystitis 06/21/2016 Dizziness and giddiness 09/04/2011 Family History Medical History Relation Name Comments Asthma Brother 1 Kendall Hypertension Brother 1 Kendall COPD - Chronic Obstructive Pulmonary Disease Brother 2 Dextor CAD (Coronary Artery Disease) Father Cancer Father prostate Hypertension Father Hypertension Mother Migraine Mother Thyroid Disease Mother Relation Name Status Comments Brother 1 Kendall Brother 2 Dextor Alive Father Mother Social History Tobacco Use Types Packs/Day Years Used Date Smoking Tobacco: Never Smokeless Tobacco: Never Alcohol Use Standard Drinks/Week Comments No 0 (1 standard drink = 0.6 oz pur e alcohol) Sex and Gender Information Value Date Recorded Sex Assigned at Not on file Legal Sex Male 5:47 AM SUPERVISOR LITHARGE Gender Identity Not on file Sexual Orientation Not on file Occupation Industry Job Start Date Job End Date retired Not on file Not on file Not on file Last Filed Vital Signs Vital Sign Reading Time Taken Comments Blood Pressure 145/78 07/15/2018 9:37 PM SUPERVISOR LITHARGE Pulse 71 07/15/2018 9:37 PM SUPERVISOR LITHARGE Temperature 36.7 C (98.1 F) 07/15/2018 12:48 PM SUPERVISOR LITHARGE Respiratory Rate 16 07/15/2018 9:37 PM SUPERVISOR LITHARGE Oxygen Saturation 96% 07/15/2018 9:37 PM SUPERVISOR LITHARGE Inhaled Oxygen Concentration - - Weight 65.8 kg (145 lb) 01/23/2018 12:03 PM CDT Height 175.3 cm (5' 9 ) 01/23/2018 12:03 PM CDT Body Mass Index 21.41 01/23/2018 12:03 PM CDT Plan of Treatment Health Maintenance Due Date Last Done Comments DTAP/TDAP/TD VACCINES (1 - Tdap) 1956 PNEUMOCOCCAL VACCINE 50+ (1 of 1 - PCV) 1987 ZOSTER VACCINE (1 of 2) 1987 Respiratory Syncytial Virus (RSV) Vaccine Pt: or over 60 yrs (1 - 1-dose 75+ series) 2012 COVID-19 VACCINE (1 - 2023-2 5 season) 2024 DEPRESSION SCREENING 07/16/2024 INFLUENZA VACCINE (Season Ended) 2025 HEPATITIS B VACCINE Aged Out No longe r eligible based on patient's age to complete this topic HIB VACCINE Aged Out No longer eligi ble based on patient's age to complete this topic HPV VACCINE Aged Out No longer eligi ble based on patient's age to complete this topic MENINGOCOCCAL (Group B) VACC INE SHARED DECISION-MAKING Aged Out No longer eligibl e based on patient's age to complete this topic MENINGOCOCCAL GROUPS A/C/Y/W VACCINE Aged Out No longer eligible b ased on patient's age to complete this topic Insurance MEDICARE [facility] Advance Directives * Full Code (Latest Code Status on File) Date Activated Date Inactivated Comments 06/21/2016 11:45 AM 06/23/2016 7:34 PM * Full Code Date Activated Date Inactivated Comments 06/21/2016 11:36 AM 06/21/2016 11:45 AM Care Teams Clinical Interviewer Relationship Specialty Start Date End Date Glory Boston MD PCP - General Internal Medicine 06/21/16
--- OUTSIDE RECORDS SUMMARY | 2024-11-24 12:22 | XMS_ITS | Referral Summary ---
Author Organization [facility] [address] [facility] Address [address] [place] [address] Care Team Providers Care Conduit Worker Name Role Phone Sandip Cortes Primary Care Provide r Allergies Active Allergy Reactions Criticality Noted Date Comments Atorvastatin Unknown 06/24/2019 Hydrochlorothiazide Other (See comments),Dizziness Low 2010 Lisinopril Cough Low 07/27/2021 Penicillins Medications terazosin (HYTRIN) 5 mg capsule 08/19/2021 Active rosuvastatin (CRESTOR) 10 mg tablet 08/19/2021 Active naproxen (NAPROSYN) 375 mg tablet Take 375 mg by mouth every 12 (twelve) hours as needed 06/11/2017 Active raNITIdine (ZANTAC) 150 mg tablet Take 150 mg by mouth 2 (two) times a day Active losartan (COZAAR) 100 mg tablet Take 100 mg by mouth daily 04/06/2020 Active LORazepam (ATIVAN) 1 mg tablet Take 0.5 mg by mouth every 8 (eight) hours as needed Active Active Problems Problem Noted Date Diagnosed Date Cephalalgia 03/15/2010 Social History Tobacco Use Types Packs/Day Years Used Date Smoking Tobacco: Never Smokeless Tobacco: Never Tobacco Cessation:Counseling Given: No AUDIT-C Answer Date Recorded Q1: How often do you have a drink containing alc ohol? Never 10/19/2021 Average Number of Drinks Not on file 022 Frequency of Binge Drinking Not on file 12/2021 Sex and Gender Information Value Date Recorded Sex Assigned at Not on file Legal Sex Male 8:28 AM DIRECT MARKETING REPRESENTATIVE Gender Identity Not on file Sexual Orientation Not on file Last Filed Vital Signs Vital Sign Reading Time Taken Comments Blood Pressure 118/68 10/19/2021 1:15 PM CDT Pulse 79 10/19/2021 1:15 PM CDT Temperature - - Respiratory Rate - - Oxygen Saturation - - Inhaled Oxygen Concentration - - Weight 70.1 kg (154 lb 9.6 oz) 10/19/2021 1:15 P M CDT Height 175.3 cm (5' 9 ) 10/19/2021 1:15 PM CDT Body Mass Index 22.83 10/19/2021 1:15 PM CDT Plan of Treatment Not on file Insurance MEDICARE [facility] MEDICARE [facility] Care Teams Conduit Worker Relationship Specialty Start Date End Date Sandip Cortes DO [address] [place] [id number] PCP - General Family Medicine 06/14/21
--- OUTSIDE RECORDS SUMMARY | 2024-11-24 12:22 | XMS_ITS | Clinical Summary ---
Author Organization [facility] Address [address] [place] [address] Phone Care Team Providers Care Pc Network Technician Name Role Phone Unavailable Primary Care Provider Unavailabl e Allergies Active Allergy Reactions Criticality Noted Date Comments Hydrochlorothiazide Dizziness Low 06/11/2017 Penicillins Hives High 06/11/2017 Medications terazosin (HYTRIN) 2 mg capsule Take 2 mg by mouth daily at bedtime. Active atorvastatin (LIPITOR) 20 mg tablet Take 20 mg by mouth late in the day. Active LORazepam (ATIVAN) 0.5 mg tablet Take 0.5 mg by mouth every 6 hours as needed for Anxiety. Active aspirin (JIMY CHEWABLE) 81 mg Tablet, Chewable Take 81 mg by mouth daily. Active diltiaZEM (CARDIZEM CD) 180 mg Controlled Delivery 24 hour capsule Take 1 Capsule (180 mg) by mouth daily. 30 Capsule 1 11/25/2016 Active lisinopril (PRINIVIL) 20 mg tablet Take 1 Tablet (20 mg) by mouth daily. 30 Tablet 1 11/24/2016 Active losartan (COZAAR) 50 mg tablet Take 50 mg by mouth daily. Active raNITIdine (ZANTAC) 150 mg tablet Take 150 mg by mouth 2 times daily. Active naproxen (NAPROSYN) 375 mg tablet Take 1 Tablet (375 mg) by mouth every 12 hours as needed for Pain, Moderate. 40 Tablet 1 06/11/2017 Active Active Problems Problem Noted Date Diagnosed Date Protein-calorie malnutrition, moderate 7 Essential hypertension 11/21/2016 Hyperlipidemia 11/21/2016 BPH (benign prostatic hyperplasia) 11/21/2016 Generalized weakness 11/21/2016 Dizziness 11/21/2016 Weight loss 11/21/2016 Cephalalgia 11/21/2016 Hypercalcemia 11/21/2016 Bradycardia 11/21/2016 Neurogenic orthostatic hypotension H/O craniotomy Family History Medical History Relation Name Comments Hypertension Brother Colon Cancer Father prostate Hypertension Father Hypertension Mother Relation Name Status Comments Brother Father Mother Social History Tobacco Use Types Packs/Day Years Used Date Smoking Tobacco: Never Alcohol Use Standard Drinks/Week Comments No 0 (1 standard drink = 0.6 oz pur e alcohol) Sex and Gender Information Value Date Recorded Sex Assigned at Not on file Legal Sex Male 3:58 AM SIDE SPLITTER Gender Identity Not on file Sexual Orientation Not on file Last Filed Vital Signs Vital Sign Reading Time Taken Comments Blood Pressure 159/81 12/30/2018 4:00 PM CDT Pulse 55 12/30/2018 4:00 PM CDT Temperature 36.2 C (97.2 F) 12/30/2018 4:00 PM CDT Respiratory Rate 16 12/30/2018 4:00 PM CDT Oxygen Saturation 95% 12/30/2018 4:00 PM CDT Inhaled Oxygen Concentration - - Weight 68 kg (150 lb) 12/30/2018 12:35 PM CDT Height 175.3 cm (5' 9 ) 12/30/2018 12:35 PM CDT Body Mass Index 22.15 12/30/2018 12:35 PM CDT Plan of Treatment Health Maintenance Due Date Last Done Comments DTAP/TDAP/TD VACCINES (1 - Tdap) 1954 PNEUMOCOCCAL VACCINE 50+ YEARS (1 of 1 - PCV) 06/28/19 87 ZOSTER VACCINE (1 of 2) 1987 RSV VACCINE (60+ or ) (1 - 1-dose 75+ series) 2012 INFLUENZA VACCINE (#1) 2024 Insurance MEDICARE PART A AND B [facility] Advance Directives For more information, please contact: [phone] * Full Code (Latest Code Status on File) Date Activated Date Inactivated Comments 11/21/2016 10:49 PM 11/24/2016 9:02 PM
--- OUTSIDE RECORDS SUMMARY | 2024-11-24 12:22 | XMS_ITS | Clinical Summary ---
Author Organization [facility] Address [address] [place] [address] Care Team Providers Care Warehouse Specialist Name Role Phone Sandip Cortes DO Primary Care Provider + Allergies Active Allergy Reactions Criticality Noted Date Comments Atorvastatin Unknown 06/24/2019 Hydrochlorothiazide Dizziness 06/11/2017 Lisinopril Cough 07/27/2021 Penicillins Hives 09/04/2011 Medications terazosin 5 MG capsuleIndications:Essen tial hypertension Take 1 capsule (5 mg total) by mouth nightly at bedtime. 90 capsule 1 12/02/19 22 Active DILTIAZEM CD 120 MG 24 hr capsuleIndications:Essen tial hypertension TAKE ONE CAPSULE BY MOUTH DAILY 90 capsule 1 12/21/19 22 Active fluticasone propionate 50 MCG/ACT nasal sprayIndications:Seasona l allergies 2 sprays by Each Nostril route daily. SHAKE LIQUID 48 g 01/26/20 22 Active rosuvastatin (CRESTOR) 10 MG tabletIndications:Pure hypercholesterolemia Take 1 tablet (10 mg total) by mouth nightly at bedtime. 90 tablet 1 03/17/20 22 Active losartan (COZAAR) 100 MG tabletIndications:Essent ial hypertension TAKE 1 TABLET(100 MG) BY MOUTH DAILY 90 tablet 09/04/19 23 Active Active Problems Problem Noted Date Diagnosed Date Arachnoid cyst 07/27/2021 Atrial fibrillation, unspecified type (CMS/HCC H HS/HCC) 04/28/2021 Palpitations 04/30/2020 H/O craniotomy 04/08/2020 Neurogenic orthostatic hypotension (CMS/HCC HHS/ HCC) 04/08/2020 BPH (benign prostatic hyperplasia) 11/21/2016 Bradycardia 11/21/2016 Essential hypertension 11/21/2016 Generalized weakness 11/21/2016 Hypercalcemia 11/21/2016 Hyperlipidemia 11/21/2016 Weight loss 11/21/2016 Viral respiratory infection 09/13/2016 Submandibular lymphadenopathy 09/13/2016 Mixed anxiety and depressive disorder 10/04/2015 High risk medication use 06/02/2014 Shoulder pain 11/12/2012 History of malignant neoplasm of prostate 2011 Anxiety state 05/14/2012 Dizziness and giddiness 09/04/2011 Cephalalgia 03/15/2010 Resolved Problems Problem Noted Date Diagnosed Date Resolved Date Protein-calorie malnutrition , moderate (HHS/HCC) 11/23/2016 04/28/2021 Acute cholecystitis 06/21/2016 04/08/20 20 Encounters Date Type Department Care Team Description 10/14/2024 Scan [facility] Scanned, Doc Med Group from Last 3 Months Immunizations Immunization Administration Dates Next Due Pneumococcal (Prevnar 13) 11/30/2017 Pneumococcal(Ppv 23)Aka Pneumovax 02/03/2019 Family History Medical History Relation Comments No Known Problems Father No Known Problems Mother Relation Status Comments Father Mother Social History Tobacco Use Types Packs/Day Years Used Date Smoking Tobacco: Never Smokeless Tobacco: Never Tobacco Cessation:Counseling Given: No Alcohol Use Standard Drinks/Week Comments Yes 0 [...] 3, please move on to questions 3-9 1 07/27/2021 Sex and Gender Information Value Date Recorded Sex Assigned at Not on file Legal Sex Male 10:46 AM CDT Gender Identity Not on file Sexual Orientation Not on file Last Filed Vital Signs Vital Sign Reading Time Taken Comments Blood Pressure 103/73 03/30/2022 11:03 AM CDT Pulse 68 03/30/2022 11:03 AM CDT Temperature 36.8 C (98.3 F) 03/30/2022 11:03 AM CDT Respiratory Rate 16 03/30/2022 11:03 AM CDT Oxygen Saturation 98% 03/30/2022 11:03 AM CDT Inhaled Oxygen Concentration - - Weight 68 kg (150 lb) 03/30/2022 11:03 AM CDT Height 175.3 cm (5' 9 ) 03/30/2022 11:03 AM CDT Body Mass Index 22.15 03/30/2022 11:03 AM CDT Plan of Treatment Health Maintenance Due Date Last Done Comments DTaP, Tdap and Td Vaccines ( 1 - Tdap) 1956 Zoster Vaccines (1 of 2) 1987 Annual Medicare Wellness Visit 2002 RSV Immunization or 60+ Years (1 - 1-dose 75+ series) 2012 COVID-19 Vaccine ( - 2023-2 5 season) 2024 PHQ-2 (Physician [place]) 07/16/2024 Pneumococcal Vaccine: 50+ Years Completed 02/03/2019, 11/30/2017 Meningococcal B Vaccine Aged Out No l onger eligible based on patient's age to complete this topic Meningococcal Vaccine Aged Out No sarah beth taisha eligible based on patient's age to complete this topic RSV Immunizations Under 20 Months Aged Out No longer eligible b ased on patient's age to complete this topic Insurance MEDICARE [facility] MEDICARE [facility] Care Teams Warehouse Specialist Relationship Specialty Start Date End Date Sandip Cortes DO [address] [place] [id number] PCP - General FAMILY PRACTICE 04/08/20
--- OUTSIDE RECORDS SUMMARY | 2024-11-24 12:22 | XMS_ITS | Clinical Summary ---
Author Organization [facility] [address] [facility] Address [address] [place] [address] Care Team Providers Care Manufacturing Analyst Name Role Phone Sandip Cortes Primary Care [...] Problem Noted Date Diagnosed Date Cephalalgia 03/15/2010 Surgical History Surgery Date Site/Laterality Comments [place] TONSILLECTOMY PRIMARY/SEC ONDARY <AGE 12 Tonsillectomy - (Added by TW Conv) [place] HEMORRHOIDECTOMY INTERNAL RUBBER BAND LIGATIONS Hemorrhoidectomy - (Added by TW Conv) Medical History Medical History Date Comments Diverticulosis of intestine without perforation or abscess without bleeding Diverticulosis - (Added by TW Conv) Personal history of other me ntal and behavioral disorders History of anxiety disorder - (Added by TW Conv) Cerebral cysts Arachnoid cyst - removed 1980 (Added by TW Conv) Personal history of other di seases of the circulatory system History of hypertension - (A dded by TW Conv) Malignant neoplasm of prostate (HCC) Prostate cancer - (Added by TW Conv) Personal history of other me ntal and behavioral disorders History of depression - (Add ed by TW Conv) Personal history of other di seases of the digestive system History of esophageal reflux - (Added by TW Conv) Hypertension Rectal bleeding Depression Family History Medical History Relation Name Comments Heart disease Brother Cancer Father Stroke Mother Hypertension Other 1 Hypertension - (Added by TW Conv) Heart disease Other 2 Heart Disease - (Added by TW Conv) Relation Name Status Comments Brother Father Mother Other 1 Other 2 Social History Tobacco Use Types Packs/Day Years [...] on file 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
--- OUTSIDE RECORDS SUMMARY | 2024-11-24 12:22 | XMS_ITS | Encounter Summary ---
Author Organization [facility] Address 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
--- NOTE | 2024-11-24 13:00 | ED_ITS ---
HPI - Weakness General Chief complaint: Chest Pain Stated complaint: fatigue Time Seen by Provider: 11/24/24 12:10 History of Present Illness HPI Narrative: 89-year-old male with history of dementia, hypertension, hyperlipidemia presenting with generalized weakness. He resides at assisted living and he has been doing physical therapy with pushups and weightlifting. Today he was feeling very fatigued and weak all over. States that they checked his blood pressure and then called 911. For EMS, they state that his blood pressure was normal once it was checked on manual. It was apparently low when assisted living had checked it with an automatic cuff. To me patient denies any chest pain, shortness of breath, lightheadedness, leg swelling. His only complaint is generalized fatigue and chronic nasal congestion. Related Data Allergies Allergy/AdvReac Type Severity Reaction Status Date / Time Penicillins Allergy Mild Unknown Verified 11/24/24 18:09 Review of Systems 2 Review of Systems: All systems reviewed & are unremarkable except as noted in HPI and below PMFSH Past Medical History Medical History Dementia of the Alzheimer's type Gastric ulcer IBS (irritable bowel syndrome) Heart disease Anxiety Seasonal allergies Prostate cancer (2008) Status post radiation. Hyperlipidemia Hypertension Surgical History Surgical History History of cholecystectomy History of craniotomy (1980) Resection benign cyst. Family History Family History Mother Depression Cerebrovascular accident Thyroid disorder Sibling Asthma Heart disease Other Hypertension Social History Social History Social History: Surrogate medical decision maker: Landon Roberson (son). Code status: Full code. Smoking status: Never smoker Alcohol intake: current Substance use: never Lack of Transportation: No Lack of Food: Never True Current Housing: I Have Housing Concerned About Future Housing: No Difficulty Paying Gas/Electric Bills: No Difficulty Paying for Meds: No Currently Unemployed: No Education: Bachelor's Degree Difficulty w/ Childcare or Family Care: No Additional living arrangements comments: Lives in [place]. lives at [place]. Son Landon lives next door. Additional occupation/education comments: Retired from [employer]. Spiritual care concerns: No Exam 2 Narrative: GENERAL: Nontoxic, no acute distress, pleasant and cooperative HEAD: Normocephalic, atraumatic. EYES: PERRLA and EOMI. ENT: Mucous membranes moist. NECK: Supple. CHEST: Clear to auscultation. No respiratory distress. HEART: Regular rate and rhythm ABDOMEN: Soft, nontender, nondistended EXTREMITIES: Normal range of motion. No edema. SKIN: Warm, dry, no rash. NEURO: No focal deficits. Alert and oriented x3. PSYCH: Normal mood and affect. Course Vital Signs Vital signs: Vital Signs Temperature 97.9 F 11/24/24 11:36 Pulse Rate 61 11/24/24 11:36 Respiratory Rate 14 11/24/24 11:36 Blood Pressure 120/80 11/24/24 11:36 Pulse Oximetry 98 11/24/24 11:36 Temperature 97.7 F 11/24/24 18:02 Pulse Rate 56 L 11/24/24 18:02 Respiratory Rate 16 11/24/24 18:02 Blood Pressure 168/90 H 11/24/24 18:02 Pulse Oximetry 100 11/24/24 18:02 Oxygen Delivery Room Air 11/24/24 11:47 MDM - Weakness MDM Narrative Medical decision making narrative: 89-year-old male presenting with generalized weakness. Vital signs here within normal limits. EKG per my interpretation shows normal sinus rhythm, incomplete right bundle branch block, no ST elevations or depressions. Similar to prior. Initial troponin within normal limits but delta troponin is elevated at 0.106. Patient denies chest pain and shortness of breath. Repeat EKG with sinus bradycardia, incomplete right bundle-branch block, no ST elevations or depressions. Patient requires admission for further management with this bumped troponin. He is agreeable this plan. I spoke with the hospitalist who has accepted him for admission. Differential Diagnosis Differential diagnosis: Likely anemia, sepsis, dehydration and other (NSTEMI) Medical Records Attestation: I reviewed the patient's medical records. Lab Data Attestation: I reviewed the patient's lab results. 11/24/24 11:43 11/24/24 11:43 Labs: Lab Results 11/24/24 11/24/24 Range/Units 11:43 14:23 WBC 5.0 (4.5-10.0) K/mm3 RBC 4.16 L (4.6-6.20) M/mm3 Hgb 13.6 L (14.0-18.0) g/dL Hct 41.9 L (42.0-52.0) % MCV 100.7 H (80-100) fl MCH 32.7 (26-34) pg MCHC 32.5 (32-36) g/dl RDW 12.8 (11.5-14.5) % Plt Count 184 (150-375) k/mm3 MPV 9.3 (7.4-10.4) fl Immature Gran % (Auto) 0.2 (0-0.5) % Neut % (Auto) 64.3 (45.5-73.1) % Lymph % (Auto) 28.9 (18.3-44.2) % Camp % (Auto) 5.8 (2.6-8.5) % Eos % (Auto) 0.6 (0-4.4) % Baso % (Auto) 0.2 (0.2-1.2) % Lymph # (Auto) 1.45 (0.9-3.2) K/mm3 Camp # (Auto) 0.3 (0.1-0.6) K/mm3 Eos # (Auto) 0.0 (0-0.3) K/mm3 Baso # (Auto) 0.0 (0.0-0.1) K/mm3 Abs Immat Gran (auto) 0.01 (0.00-0.031) K/mm3 Absolute Neuts (auto) 3.2 (1.3-6.7) K/mm3 Absolute Nucleated RBC 0.000 (0.0-0.012) K/mm3 Nucleated RBC % 0.0 (0.0-0.2) % PT 13.8 (11.1-14.7) Seconds INR 1.0 APTT 27.1 (22.3-36.8) Seconds Sodium 138 (137-145) mmol/L Potassium 3.8 (3.4-5.0) mmol/L Chloride 104 (98-107) mmol/L Carbon Dioxide 29 (22-30) mmol/L Anion Gap 5 (4-12) mmol/L BUN 20 (9-20) mg/dL Creatinine 1.00 (0.7-1.3) mg/dL Estim Creat Clear Calc 46 ml/min Estimated GFR > 60 (59 - ) Glucose 103 (65-110) mg/dL Calcium 9.3 (8.4-10.2) mg/dL Total Bilirubin 0.5 (0.2-1.3) mg/dL AST 23 (17-59) U/L ALT 17 (6-50) U/L Alkaline Phosphatase 44 (38-126) U/L Troponin I 0.013 0.106 H* D (0.000-0.034) ng/mL Total Protein 7.0 (6.3-8.2) g/dL Albumin 3.8 (3.5-5.1) g/dL Lipase 72 (23-300) U/L Imaging Data Radiologist's impression: ITS Impressions Chest X-Ray 11/24/24 13:26 IMPRESSION: No acute cardiopulmonary pathology. Critical Care Time Critical Care Time Critical Care Time: No Discharge Plan Discharge Clinical Impression: Elevated troponin, Generalized weakness Patient Disposition: Still a Patient Condition: Stable
--- NOTE | 2024-11-24 14:35 | ECG_ITS ---
Test Date: 2024-11-24 14:19:19 Measurements Intervals [place] Rate: 48 P: 93 HI: 181 QRS: 14 QRSD: 97 T: 35 QT: 466 QTc: 417 Interpretive Statements SINUS BRADYCARDIA INCOMPLETE RIGHT BUNDLE BRANCH BLOCK [90+ ms QRS DURATION, TERMINAL R IN V1/V2, 40+ ms S IN I/aVL/V4/V5/V6] Compared to ECG 11/24/2024 11:38:16 Sinus rhythm no longer present Electronically Signed On 11-25-2024 14:47:04 CDT by Tee León M.D.
[2024-11-24 15:05] LABS: Troponin I 0.106 ng/mL (0.000-0.034)
--- NOTE | 2024-11-24 15:29 | PC.NURSE ---
This RN spoke to SHARRON Long from [facility] to give updates on pt.
[2024-11-24 16:02] LABS: Add Urine Microscopic? NO; Appearance Urine Clear (Clear); Bilirubin Urine Negative (Negative); Blood Urine Negative (Negative); Color Urine Yellow (Yellow); Glucose Urine UA Negative (Negative); Ketones Urine Negative (Negative); Leukocyte Esterase Ur Negative LEU/UL (Negative); Nitrate Urine Negative (Negative); Protein Urine Negative (Negative); Specific Grav Ur 1.011 (1.001-1.035); pH Urine 7.5 (5.0-9.0)
--- NOTE | 2024-11-24 17:35 | P.HP_ITS ---
H&P: HPI History of Present Illness Date/Time: 11/24/24 17:35 Chief Complaint: Fatigue Narrative: 89-year-old man past medical history of Alzheimer's, IBS, heart disease and prostate cancer hypertension lipidemia presents the hospital with complaints of fatigue after working out. Patient states that he was working out of [employer] when he became extremely fatigued with chest pain. HPI is limited due to patient's Alzheimer's. When asked about chest pain in the ED the patient denied it. Patient states that he was doing pushups today. On bedside exam patient is unsure if he complained about chest pain today or not. Patient states that he is short-term memory issues. Currently at this time he denies chest pain. On patient's lab work in the ED his 2nd troponin was elevated 0.106. Chest x- ray showed no acute cardiopulmonary process. EKG shows a bradycardia of 40. Review of Systems Review of Systems: ROS unobtainable: Yes unobtainable due to mental status PMFSH Past Medical History Medical History Dementia of the Alzheimer's type Gastric ulcer IBS (irritable bowel syndrome) Heart disease Anxiety Seasonal allergies Prostate cancer (2008) Status post radiation. Hyperlipidemia Hypertension Surgical History Surgical History History of cholecystectomy History of craniotomy (1980) Resection benign cyst. Family History Family History Mother Depression Cerebrovascular accident Thyroid disorder Sibling Asthma Heart disease Other Hypertension Social History Social History Social History: Surrogate medical decision maker: Landon Roberson (son). Code status: Full code. Smoking status: Never smoker Alcohol intake: current Substance use: never Do You Feel Safe in your Home?: Yes Lack of Transportation: No Lack of Food: Never True Current Housing: I Have Housing Concerned About Future Housing: No Difficulty Paying Gas/Electric Bills: No Difficulty Paying for Meds: No Currently Unemployed: No Education: Decline to Answer Difficulty w/ Childcare or Family Care: No Additional living arrangements comments: Lives in [place]. lives at [place]. Son Landon lives next door. Additional occupation/education comments: Retired from [employer]. Spiritual care concerns: Yes Meds Home Medications and Allergies Home Medications Medication Instructions Recorded Confirmed Type aspirin 325 mg tablet,delayed 325 mg PO DAILY #30 tabs 04/25/23 11/24/24 Rx release losartan 50 mg tablet 50 mg PO DAILY #90 tabs 11/05/23 11/24/24 Rx fluticasone propionate 50 See Rx Instructions .Route 11/06/23 11/24/24 Rx mcg/actuation nasal .COMPLEX #48 grams spray,suspension omeprazole 20 mg capsule,delayed 20 mg PO DAILY #30 caps 03/14/24 11/24/24 Rx release terazosin 2 mg capsule 2 mg PO DAILY #90 caps 04/28/24 11/24/24 Rx donepezil 10 mg tablet 10 mg PO QHS #90 tabs 06/16/24 11/24/24 Rx memantine 28 mg capsule 28 mg PO DAILY #30 ea 06/16/24 11/24/24 Rx sprinkle,extended release 24hr (Namenda XR) memantine 7 mg-14 mg-21 mg-28 mg See Rx Instructions PO PER PKG DIR 06/16/24 11/24/24 Rx capsule,sprinkle,ext.rel.24hr pack #28 ea (Namenda XR) diltiazem HCl 30 mg tablet 30 mg PO BID #60 tabs 08/01/24 11/24/24 Rx Allergies Allergy/AdvReac Type Severity Reaction Status Date / Time Penicillins Allergy Mild Unknown Verified 11/24/24 18:09 Vital Signs Vital Signs - 24 hr 11/24/24 11:36 11/24/24 11:38 11/24/24 11:38 Temperature 97.9 F 97.9 F Pulse Rate 61 65 64 Respiratory Rate 14 20 Blood Pressure 120/80 120/80 Pulse Oximetry 98 98 Oxygen Delivery Room Air 11/24/24 11:45 11/24/24 11:47 11/24/24 12:50 Temperature Pulse Rate 65 Respiratory Rate 18 Blood Pressure 135/81 Pulse Oximetry 99 99 97 Oxygen Delivery Room Air Room Air 11/24/24 15:30 Temperature Pulse Rate 50 L Respiratory Rate 16 Blood Pressure 151/84 H Pulse Oximetry 96 Oxygen Delivery Exam Narrative: General: well appearing, appears stated age. HEENT: normocephalic, atraumatic. Mucous membranes moist. EOMI, PERRLA, bilateral sclera anicteric, no conjunctival injection. Neck supple without JVD, lymphadenopathy, or bruit. Respiratory: clear to ascultation bilaterally. No rales/rhonic/wheezes. Cardiovascular: Regular rate and rhythm, normal S1-S2 upon ascultation. No murmurs, rubs, or clicks. PMI is nondisplaced, capillary refill less than 3 second. Abdomen: Soft, round, no pulsatile masses, nondistended and nontender. No rebound, no guarding. No CVA tenderness, no hepatosplenomegaly. Bowel sounds present to all four quadrants. No high pitch or tinkling sounds, resonant to percussion. Extremities: No cyanosis, clubbing, or edema present. Pulses are palpable 2/2. Active ROM to all four extremities. Neuro: Alert and orientated x 2. PERRLA. Cranial nerves 2-12 intact without focal deficit. Skin: Warm, dry, and intact, without rash, erythema, or lesion. Psych: pleasant, cooperative, normal speech, normal affect, no hallucinations, no dysarthia H&P: Results Labs Labs: Short CBC 11/24/24 Range/Units 11:43 WBC 5.0 (4.5-10.0) K/mm3 Hgb 13.6 L (14.0-18.0) g/dL Hct 41.9 L (42.0-52.0) % Plt Count 184 (150-375) k/mm3 BMP 11/24/24 11:43 Sodium 138 Potassium 3.8 Chloride 104 Carbon Dioxide 29 BUN 20 Creatinine 1.00 Glucose 103 Calcium 9.3 Cardiac Enzymes 11/24/24 11/24/24 Range/Units 11:43 14:23 Troponin I 0.013 0.106 H* D (0.000-0.034) ng/mL Liver Function 11/24/24 Range/Units 11:43 Total Bilirubin 0.5 (0.2-1.3) mg/dL AST 23 (17-59) U/L ALT 17 (6-50) U/L Alkaline Phosphatase 44 (38-126) U/L Albumin 3.8 (3.5-5.1) g/dL Urine 11/24/24 Range/Units 15:55 Urine Color Yellow (Yellow) Urine Appearance Clear (Clear) Urine pH 7.5 (5.0-9.0) Ur Specific [place] 1.011 (1.001-1.035) Urine Protein Negative (Negative) mg/dL Urine Glucose (UA) Negative (Negative) mg/dL Assessment and Plan Assessment and plan (1) Elevated troponin: Code(s): R77.8 - Other specified abnormalities of plasma proteins Status: Acute Assessment and Plan: Cardiology consulted Therapeutic Lovenox Echo pending (2) Symptomatic bradycardia: Code(s): R00.1 - Bradycardia, unspecified Status: Acute Assessment and Plan: Cardiology consulted Telemetry monitoring Hold diltiazem, memantine and donepezil as he has cause bradycardia (3) Hyperlipidemia: Code(s): E78.5 - Hyperlipidemia, unspecified Status: Acute Assessment and Plan: Patient on statin (4) Dementia of the Alzheimer's type: Code(s): G30.9 - Alzheimer's disease, unspecified; F02.80 - Dementia in other diseases classified elsewhere, unspecified severity, without behavioral disturbance, psychotic disturbance, mood disturbance, and anxiety Status: Acute Assessment and Plan: Cardiology recommending to discontinue Alzheimer's medications as it can cause severe bradycardia (5) Hypertension: Code(s): I10 - Essential (primary) hypertension Status: Acute Assessment and Plan: Continue home blood pressure meds in the morning Quality VTE Prophylaxis VTE prophylaxis: mechanical ordered and pharmacologic ordered Hospitalist MIPS Advance Care Plan I have confirmed that the patient's Advanced Care Plan is present, code status is documented, or surrogate decision maker is listed in patient medical record.: Yes Medication Reconciliation I have utilized all available resources to obtain, update and review the patients current medications (includes all prescriptions, OTC, herbals, cannabis, and nutritional supplements).: Yes
--- NOTE | 2024-11-24 17:35 | ECG_ITS ---
Test Date: 2024-11-24 17:35:49 Measurements Intervals [place] Rate: 40 P: 88 KS: 170 QRS: 20 QRSD: 102 T: 38 QT: 493 QTc: 403 Interpretive Statements SINUS BRADYCARDIA WITH OCCASIONAL SUPRAVENTRICULAR PREMATURE COMPLEXES INCOMPLETE RIGHT BUNDLE BRANCH BLOCK [90+ ms QRS DURATION, TERMINAL R IN V1/V2, 40+ ms S IN I/aVL/V4/V5/V6] MINIMAL ST DEPRESSION [0.025+ mV ST DEPRESSION] Compared to ECG 11/24/2024 14:19:19 NO SIGNIFICANT CHANGES Electronically Signed On 11-25-2024 14:49:25 CDT by Tee León M.D.
--- NOTE | 2024-11-24 18:08 | ADMGEN ---
This patient, Sincere Roberson, was admitted to IMU Room 206-01. Patient/family oriented to hospital policies and general routines including ID bracelet, bed and alarms, visiting hours, pain management, procedures, bathroom and other care routines, personal items, smoking policy, room service/diet, and visiting hours. Information on how to activate the Rapid Response Team has been discussed. Patient/Family are encouraged to report perceived risks to care and to ask questions if they do not understand what they are told or what they should do.
[2024-11-24 18:34] LABS: Troponin I 0.198 ng/mL (0.000-0.034)
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
[2024-11-24] MEDS: ENOXAPARIN 80 MG/0.8 ML SYRINGE 65 MG SUB-Q (20:58)
[2024-11-25] VITALS (10 sets, daily range): BP systolic 176–186; BP diastolic 87–93; PULSE 43–59; RESP 17–20; TEMP 36.2–36.4; O2SAT 97–99
--- NOTE | 2024-11-25 | ECHO_ITS ---
Patient Info Name: Sincere Roberson Age: 89 years : 1935 Gender: Male Ht: 68 in Wt: 146 lbs BSA: 1.78 m2 HR: 48 bpm BP: 176 / 93 mmHg Technical Quality: Good Exam Date: 11/25/2024 8:58 AM Patient Status: I Admit Date: 11/24/2024 Exam Type: CA echo doppler color flow Study Info Complete two-dimensional, color flow and Doppler transthoracic echocardiogram is performed. Staff Referring Physician: Miquel Cervantes DO Attending Provider: Allyson Brown MD Summary 1. Complete two-dimensional, color flow and Doppler transthoracic echocardiogram is performed. 2. Left ventricular chamber dimension is normal. 3. Left ventricular systolic function is normal, estimated at 60-65. 4. The left ventricular diastolic function is abnormal. 5. E/e' 11 is mildly elevated. 6. Left atrial chamber dimension is mildly enlarged. 7. There is mild aortic valve sclerosis. 8. There is mild mitral valve regurgitation. 9. There is mild tricuspid valve regurgitation. 10. Mild pulmonary hypertension, estimated pulmonary arterial systolic pressure is 41 mmHg. 11. There is trace pulmonic regurgitation. Left Ventricle E/e' 11 is mildly elevated. Left ventricular chamber dimension is normal. Left ventricular systolic function is normal, estimated at 60-65. The left ventricular diastolic function is abnormal. Right Ventricle Right ventricular chamber dimension is normal. Right ventricular systolic function is normal and with normal TAPSE 2.4 cm. Left Atria Left atrial chamber dimension is mildly enlarged. Right Atria Right atrial chamber dimension is normal. Aortic Valve The aortic valve is trileaflet. There is mild aortic valve sclerosis. There is no aortic valve stenosis. There is no aortic valve regurgitation. Pulmonic Valve There is trace pulmonic regurgitation. Mitral Valve There is no mitral valve stenosis. There is mild mitral valve regurgitation. Tricuspid Valve There is mild tricuspid valve regurgitation. Mild pulmonary hypertension, estimated pulmonary arterial systolic pressure is 41 mmHg. Pericardium/Pleural There is no pericardial effusion. Inferior Vena Cava Normal inferior vena cava with >50% collapse upon inspiration consistent with normal right atrial pressure, 5 mmHg. Aorta The aortic root size at the sinus of Valsalva is normal. Left Ventricular Outflow Tract Name Value Normal LVOT 2D LVOT Diameter 2.0 cm LVOT Doppler LVOT Peak Velocity 100 cm/s LVOT Peak Gradient 4 mmHg LVOT Mean Gradient 2 mmHg LVOT VTI 23 cm LVOT VTI/AV VTI Ratio 0.7 LVOT Stroke Volume 69 ml LVOT CO 11.9 l/min LVOT CI 6.7 l/min/m2 Pulmonic Valve Name Value Normal PV Doppler PV Peak Velocity 77 cm/s PV Peak Gradient 2 mmHg Mitral Valve Name Value Normal MV Diastolic Function MV E Peak Velocity 74 cm/s MV A Peak Velocity 72 cm/s MV E/A 1.0 MV Decel Time (PW) 218 ms MV Annular TDI MV E/e' (Septal) 11.5 MV E/e' (Lateral) 12.0 MV E/e' (Average) 11.7 Tricuspid Valve Name Value Normal TV Regurgitation Doppler TR Peak Velocity 302 cm/s TR Peak Gradient 36 mmHg Estimated PAP/RSVP RA Pressure 5 mmHg <=5 PA Systolic Pressure 41 mmHg <36 RV Systolic Pressure 41 mmHg <36 TV Annular TDI TV Lateral Mary s' Velocity 17.2 cm/s >=9.5 Aorta Name Value Normal Ascending Aorta Ao Root Diameter (MM) 3.9 cm Ao Root Diam Index (MM) 2.2 cm/m2 Aortic Valve Name Value Normal AV Doppler AV Peak Velocity 142 cm/s AV Peak Gradient 8 mmHg AV Mean Gradient 4 mmHg AV VTI 33 cm AV Area (Cont Eq VTI) 2.1 cm2 >=3.0 AV Area (Cont Eq Kevin) 2.1 cm2 AV DI (Kevin) 0.70 AV Regurgitation 2D LVOT Area 3.0 cm2 Ventricles Name Value Normal LV Dimensions 2D/MM IVS Diastolic Thickness (2D) 1.1 cm 0.6-1.0 LVID Diastole (2D) 4.6 cm 4.2-5.8 LVIW Diastolic Thickness (2D) 1.1 cm 0.6-1.0 LVID Systole (2D) 3.4 cm 2.5-4.0 LVOT Diameter 2.0 cm LV Mass (2D Cubed) 181.59 g 88.00-224.00 LV Mass Index (2D Cubed) 102 g/m2 49-115 Relative Wall Thickness (2D) 0.47 <=0.42 LV Fractional Shortening/Ejection Fraction 2D/MM LV Fractional Shortening (2D) 26 % 25-43 LV EF (2D Teichholz) 50 % LV Diastolic Volume (4C MOD) 118 ml LV EF (4C MOD) 69 % LV Diastolic Volume (2C MOD) 101 ml LV EF (2C MOD) 71 % LV Diastolic Volume (BP MOD) 111 ml 62-150 LV Diastolic Volume Index (BP MOD) 62 ml/m2 34-74 LV Systolic Volume (BP MOD) 33 ml 21-61 LV Systolic Volume Index (BP MOD) 18 ml/m2 11-31 LV EF (BP MOD) 70 % 52-72 LV Diastolic Length (4C) 7.7 cm LV Systolic Length (4C) 5.9 cm LV Stroke Volume (4C MOD) 82 ml RV Dimensions 2D/MM RVID Diastole (2D) 4.1 cm 2.1-3.5 Atria Name Value Normal LA Dimensions LA Dimension (MM) 3.4 cm 3.0-4.0 LA Volume (4C A-L) 78 ml LA Volume (BP A-L) 91 ml RA Dimensions RA Systolic Major [place] Length (4C) 5.8 cm 2.1-2.7 RA Area (4C) 24.7 cm2 <=18.0 Report Signatures
[2024-11-25 04:36] LABS: Cholesterol 239 mg/dL (0-200); HDL Direct 46 mg/dL; Triglycerides 77 mg/dL (<150)
[2024-11-25 04:47] LABS: LDL Cholesterol Direct 128 mg/dL
[2024-11-25 04:56] LABS: Troponin I 0.112 ng/mL (0.000-0.034)
--- NOTE | 2024-11-25 06:36 | EST_ITS ---
Patient Info Name: Sincere Roberson Age: 89 years : 1935 Gender: Male Ht: 68 in Wt: 146 lbs BSA: 1.78 m2 HR: 51 bpm BP: 139 / 83 mmHg Exam Date: 11/25/2024 11:58 AM Patient Status: O Admit Date: 11/24/2024 Exam Type: CA stress salo w NM Study Info Indications Elevated troponin - A regadenoson stress test was performed. Staff Referring Physician: Miquel Cervantes DO Attending Provider: Allyson Brown MD Exercise Technologist: Silva [place] Exercise Physician: Miquel Cervantes DO Summary 1. 1. Negative lexiscan stress test for ischemic ST changes by ECG criteria. 2. 2. Stable hemodynamics throughout the test. 3. 3. Nuclear scan to follow and will be reported separately. Please correlate with it. Protocol: Lexiscan Stress ECG Details Stage: REST Duration (min): 2 min : 7 sec HR (bpm): 54 SBP (mmHg): 139 DBP (mmHg): 83 Stage: REST Duration (min): 3 min : 38 sec HR (bpm): 61 SBP (mmHg): 139 DBP (mmHg): 83 Stage: STAGE 1 Duration (min): 1 min : 0 sec HR (bpm): 71 SBP (mmHg): 149 DBP (mmHg): 81 Stage: RECOVERY Duration (min): 1 min : 0 sec HR (bpm): 78 SBP (mmHg): 149 DBP (mmHg): 81 Stage: RECOVERY Duration (min): 2 min : 0 sec HR (bpm): 68 SBP (mmHg): 149 DBP (mmHg): 81 Stage: RECOVERY Duration (min): 3 min : 0 sec HR (bpm): 84 SBP (mmHg): 98 DBP (mmHg): 70 Stage: RECOVERY Duration (min): 4 min : 0 sec HR (bpm): 69 SBP (mmHg): 98 DBP (mmHg): 70 Stage: RECOVERY Duration (min): 4 min : 3 sec HR (bpm): 69 SBP (mmHg): 98 DBP (mmHg): 70 Rest HR: 61 bpm Peak HR: 86 bpm Rest Sys BP: 139 mmHg Peak Sys BP: 149 mmHg Max Pred HR: 133 bpm % Max Pred HR: 65 % Target HR: 113 bpm Max RPP: 12,814 bpm*mmHg Termination Reason: Completed protocol Cardiac Symptoms: Shortness of breath Total Time: 1 min : 0 sec Rest [place] BP: 83 mmHg Peak [place] BP: 81 mmHg Total Dose: 0.4 mg Resting ECG Sinus rhythm. Stress ECG No ST changes. Arrhythmias None. Report Signatures
--- NOTE | 2024-11-25 08:05 | P.PNCA_ITS ---
Progress Note: A&P Assessment and Plan (1) Symptomatic bradycardia: Code(s): R00.1 - Bradycardia, unspecified Status: Acute Assessment and Plan: HR improving by stopping Diltiazem 30 mg PO BID. Dementia medication have potential for bradycardia and this has been discontinued also. Monitor HR. (2) Paroxysmal atrial flutter: Code(s): I48.92 - Unspecified atrial flutter Status: Acute Assessment and Plan: In Sinus rhythm. Rarely had episodes in past. On aspirin. (3) Elevated troponin: Code(s): R77.8 - Other specified abnormalities of plasma proteins Status: Acute Assessment and Plan: Troponin peaked at 0.198, then went down to 0.112. Probably related to bradycardia. Doubt ACS. Obtain echo. Obtain lexiscan myoview stress test. (4) Hyperlipidemia: Code(s): E78.5 - Hyperlipidemia, unspecified Status: Acute Assessment and Plan: Stable. (5) Hypertension: Code(s): I10 - Essential (primary) hypertension Status: Acute Assessment and Plan: High. Start Hydralazine 25 mg PO TID. (6) Dementia: Code(s): F03.90 - Unspecified dementia, unspecified severity, without behavioral disturbance, psychotic disturbance, mood disturbance, and anxiety Status: Acute Subjective Date/time seen: 11/25/24 08:05 Interval history: Denies chest pain, sob. He is oriented only to name. Exam Const: General: cooperative, healthy appearing and comfortable Orientation/consciousness: oriented to person, No oriented to place and No oriented to time Resp: Auscultation: clear to auscultation bilaterally, no crackles, no rales, no rhonchi and no wheezes Cardio: Rate: bradycardic Rhythm: regular rhythm Heart sounds: no murmurs GI: GI Palp: No abdominal tenderness and Yes Soft to palpation Neuro: General: oriented to person, No oriented to place and No oriented to time Extrem: Right lower extremity: no edema Left lower extremity: no edema Objective Data Vital Signs Vital Signs: Vital Signs - 24 hr 11/24/24 11:36 11/24/24 11:38 11/24/24 11:38 Temperature 97.9 F 97.9 F Pulse Rate 61 65 64 Respiratory Rate 14 20 Blood Pressure 120/80 120/80 Pulse Oximetry 98 98 Oxygen Delivery Room Air 11/24/24 11:45 11/24/24 11:47 11/24/24 12:50 Temperature Pulse Rate 65 Respiratory Rate 18 Blood Pressure 135/81 Pulse Oximetry 99 99 97 Oxygen Delivery Room Air Room Air 11/24/24 15:30 11/24/24 17:35 11/24/24 18:00 Temperature 97.8 F Pulse Rate 50 L 44 L 52 L Respiratory Rate 16 16 Blood Pressure 151/84 H 164/89 H Pulse Oximetry 96 98 Oxygen Delivery 11/24/24 18:02 11/24/24 18:46 11/24/24 20:00 Temperature 97.7 F Pulse Rate 56 L Respiratory Rate 16 Blood Pressure 168/90 H 177/83 H Pulse Oximetry 100 Oxygen Delivery Room Air 11/24/24 20:00 11/24/24 20:27 11/24/24 22:00 Temperature 98.2 F Pulse Rate 49 L 49 L 45 L Respiratory Rate 16 Blood Pressure 172/82 H Pulse Oximetry 100 Oxygen Delivery 11/24/24 23:52 11/25/24 00:00 11/25/24 00:00 Temperature 98.2 F Pulse Rate 43 L 52 L Respiratory Rate 18 Blood Pressure 161/80 H Pulse Oximetry 99 Oxygen Delivery Room Air 11/25/24 02:00 11/25/24 04:00 11/25/24 04:00 Temperature 97.1 F L Pulse Rate 43 L 59 L 54 L Respiratory Rate 17 Blood Pressure 186/87 H Pulse Oximetry 97 Oxygen Delivery 11/25/24 04:00 11/25/24 06:00 11/25/24 07:56 Temperature 97.6 F Pulse Rate 44 L 44 L Respiratory Rate 20 Blood Pressure 176/93 H Pulse Oximetry 99 Oxygen Delivery Room Air Intake/Output Intake/Output: Intake & Output 11/22/24 11/23/24 11/24/24 11/25/24 23:59 23:59 23:59 23:59 Intake Total 480 Balance 480 Meds/Results Medications: Active Medications Generic Name Dose Route Start Last Admin Trade Name Freq PRN Reason Stop Dose Admin Aspirin 325 mg 11/25/24 09:00 Aspirin 325 Mg Enteric Tablet PO DAILY [facility] Enoxaparin Sodium 65 mg 11/24/24 20:00 11/24/24 20:58 Enoxaparin 80 Mg/0.8 Ml Syringe SUB-Q 65 mg Q12H [facility] Administration Hydralazine HCl 25 mg 11/25/24 08:00 Hydralazine Hcl 25 Mg Tablet PO TIDWM [facility] Losartan Potassium 50 mg 11/25/24 09:00 Losartan Potassium 50 Mg Tablet PO DAILY [facility] Pantoprazole Sodium 40 mg 11/25/24 09:00 Pantoprazole 40 Mg Tablet PO QAM [facility] Perflutren Lipid Microsphere 0 ml 11/24/24 18:46 Perflutren Lipid Microspheres 1.5 Ml Vial Diluted To 10 Ml Total Volume IV PUSH 11/27/24 18:46 ONCE PRN adequate visualization Protocol Radiology Results: ITS Impressions Chest X-Ray 11/24/24 13:26 IMPRESSION: No acute cardiopulmonary pathology. Labs Labs: Laboratory Results - last 24 hr 11/24/24 11/24/24 11/24/24 11:43 14:23 15:55 WBC 5.0 RBC 4.16 L Hgb 13.6 L Hct 41.9 L MCV 100.7 H MCH 32.7 MCHC 32.5 RDW 12.8 Plt Count 184 MPV 9.3 Immature Gran % (Auto) 0.2 Neut % (Auto) 64.3 Lymph % (Auto) 28.9 [place] % (Auto) 5.8 Eos % (Auto) 0.6 Baso % (Auto) 0.2 Lymph # (Auto) 1.45 [place] # (Auto) 0.3 Eos # (Auto) 0.0 Baso # (Auto) 0.0 Abs Immat Gran (auto) 0.01 Absolute Neuts (auto) 3.2 Absolute Nucleated RBC 0.000 Nucleated RBC % 0.0 PT 13.8 INR 1.0 APTT 27.1 Sodium 138 Potassium 3.8 Chloride 104 Carbon Dioxide 29 Anion Gap 5 BUN 20 Creatinine 1.00 Estim Creat Clear Calc 46 Estimated GFR > 60 Glucose 103 Calcium 9.3 Total Bilirubin 0.5 AST 23 ALT 17 Alkaline Phosphatase 44 Troponin I 0.013 0.106 H* D Total Protein 7.0 Albumin 3.8 Triglycerides Cholesterol LDL Cholesterol Direct HDL Direct Lipase 72 Urine Color Yellow Urine Appearance Clear Urine pH 7.5 Ur Specific [place] 1.011 Urine Protein Negative Urine Glucose (UA) Negative Urine Ketones Negative Ur Blood (Man) Negative Urine Nitrate Negative Urine Bilirubin Negative Urine Urobilinogen 1.0 Leukocyte Esterase Rfl Negative 05/12/25 05/13/25 17:34 03:55 WBC RBC Hgb Hct MCV MCH MCHC RDW Plt Count MPV Immature Gran % (Auto) Neut % (Auto) Lymph % (Auto) [place] % (Auto) Eos % (Auto) Baso % (Auto) Lymph # (Auto) [place] # (Auto) Eos # (Auto) Baso # (Auto) Abs Immat Gran (auto) Absolute Neuts (auto) Absolute Nucleated RBC Nucleated RBC % PT INR APTT Sodium Potassium Chloride Carbon Dioxide Anion Gap BUN Creatinine Estim Creat Clear Calc Estimated GFR Glucose Calcium Total Bilirubin AST ALT Alkaline Phosphatase Troponin I 0.198 H* D 0.112 H* Total Protein Albumin Triglycerides 77 Cholesterol 239 H LDL Cholesterol Direct 128 HDL Direct 46 Lipase Urine Color Urine Appearance Urine pH Ur Specific [place] Urine Protein Urine Glucose (UA) Urine Ketones Ur Blood (Man) Urine Nitrate Urine Bilirubin Urine Urobilinogen Leukocyte Esterase Rfl
[2024-11-25] MEDS: ASPIRIN 325 MG ENTERIC TABLET PO (08:43)
[2024-11-25] MEDS: hydrALAZINE HCL 25 MG TABLET PO (08:43)
[2024-11-25] MEDS: LOSARTAN POTASSIUM 50 MG TABLET PO (08:43)
[2024-11-25] MEDS: PANTOPRAZOLE 40 MG TABLET PO (08:43)
[2024-11-25] MEDS: ENOXAPARIN 40 MG/0.4 ML SYRINGE SUB-Q (08:46)
--- NOTE | 2024-11-25 10:50 | PC.NURSE ---
Pt to nuclear medicine via wheelchair for Lexiscan stress test.
--- NOTE | 2024-11-25 12:50 | PC.NURSE ---
Pt returned from nuclear medicine via wheelchair. No issues noted
--- NOTE | 2024-11-25 15:22 | P.DS_ITS ---
DS: Admitting Diagnosis Discharge Date 11/25/24 Admitting Diagnosis Fatigue DS: Discharge Diagnosis Discharge Diagnosis (1) Elevated troponin: Code(s): R77.8 - Other specified abnormalities of plasma proteins Status: Acute Assessment and Plan: Cardiology consulted Therapeutic Lovenox Echo pending (2) Symptomatic bradycardia: Code(s): R00.1 - Bradycardia, unspecified Status: Acute Assessment and Plan: Cardiology consulted Telemetry monitoring Hold diltiazem, memantine and donepezil as he has cause bradycardia (3) Hyperlipidemia: Code(s): E78.5 - Hyperlipidemia, unspecified Status: Acute Assessment and Plan: Patient on statin (4) Dementia of the Alzheimer's type: Code(s): G30.9 - Alzheimer's disease, unspecified; F02.80 - Dementia in other diseases classified elsewhere, unspecified severity, without behavioral disturbance, psychotic disturbance, mood disturbance, and anxiety Status: Acute Assessment and Plan: Cardiology recommending to discontinue Alzheimer's medications as it can cause severe bradycardia (5) Hypertension: Code(s): I10 - Essential (primary) hypertension Status: Acute Assessment and Plan: Continue home blood pressure meds in the morning DS: Summary Hospital Course Hospital Course: 89 y/o with history of dementia presented with bradycardia and was found to have NSTEMI, patient was seen by the practice business asst suspect bradycardia 2/2 diltiazem patient is taking as well his dementia medications patient is taking and these medications were stopped since then his HR is trending down. Also has NSTEMI however patient does not have any complaints of CP, no further ischemic work up recommended, patient is clinically stable, will discharge the patient today. Time Spent with Patient Time attestation: Total time spent providing and/or coordinating discharge services: Exam Narrative: General: well appearing, appears stated age. HEENT: normocephalic, atraumatic. Mucous membranes moist. EOMI, PERRLA, bilateral sclera anicteric, no conjunctival injection. Neck supple without JVD, lymphadenopathy, or bruit. Respiratory: clear to ascultation bilaterally. No rales/rhonic/wheezes. Cardiovascular: Regular rate and rhythm, normal S1-S2 upon ascultation. No murmurs, rubs, or clicks. PMI is nondisplaced, capillary refill less than 3 second. Abdomen: Soft, round, no pulsatile masses, nondistended and nontender. No rebound, no guarding. No CVA tenderness, no hepatosplenomegaly. Bowel sounds present to all four quadrants. No high pitch or tinkling sounds, resonant to percussion. Extremities: No cyanosis, clubbing, or edema present. Pulses are palpable 2/2. Active ROM to all four extremities. Neuro: Alert and orientated x 2. PERRLA. Cranial nerves 2-12 intact without focal deficit. Skin: Warm, dry, and intact, without rash, erythema, or lesion. Psych: pleasant, cooperative, normal speech, normal affect, no hallucinations, no dysarthia DS: Data Data Completed and Pending Labs on day of discharge: Labs from last 24 hours 11/25/24 11/24/24 11/24/24 03:55 17:34 15:55 Troponin I 0.112 H* 0.198 H* D Triglycerides 77 Cholesterol 239 H LDL Cholesterol Direct 128 HDL Direct 46 Urine Color Yellow Urine Appearance Clear Urine pH 7.5 Ur Specific [place] 1.011 Urine Protein Negative Urine Glucose (UA) Negative Urine Ketones Negative Ur Blood (Man) Negative Urine Nitrate Negative Urine Bilirubin Negative Urine Urobilinogen 1.0 Leukocyte Esterase Rfl Negative Discharge Plan Discharge Attending physician on discharge: Allyson Brown Consulting providers: Miquel Cervantes; Gaby Gabriel; Bob Chaparro; Tee León; Osman Talley; Yahir Farley Discharging Clinician: Allyson Brown Patient Disposition: Home Activity: as tolerated Diet: heart healthy Discharge Instructions: patient to follow discharge care instruction from his practice business asst and follow up as scheduled in 2 weeks. patient to follow up with his primary care provider as soon as possible, patient is instructed if any symptoms worsen to go to nearest ER. Patient Instructions: Regadenoson (By injection), Bradycardia (DC), Nuclear Stress Test (GEN) Patient Language: Persian Stand Alone Forms: General Discharge Information Follow-up/Referrals: Ericka Meyer MD [Primary Care Provider] - Miquel Cervantes DO [Physician] - 2 Weeks Discharge Medications: Continued losartan 50 mg tablet 50 mg PO DAILY Qty: 90 1RF aspirin 325 mg tablet,delayed release (DR/EC) 325 mg PO DAILY Qty: 30 3RF fluticasone propionate 50 mcg/actuation spray,suspension See Rx Instructions .ROUTE .COMPLEX Qty: 48 0RF Dose Instruction: SHAKE LIQUID AND USE 1 SPRAY IN EACH NOSTRIL EVERY 12 HOURS Rx Instructions: SHAKE LIQUID AND USE 1 SPRAY IN EACH NOSTRIL EVERY 12 HOURS omeprazole 20 mg capsule,delayed release(DR/EC) 20 mg PO DAILY Qty: 30 1RF terazosin 2 mg capsule 2 mg PO DAILY Qty: 90 1RF Held donepezil 10 mg tablet 10 mg PO QHS Qty: 90 3RF Hold Instructions: until seen by his practice business asst Namenda XR 7-14-21-28 mg cap,sprinkle,ER 24hr dose pack See Rx Instructions PO PER PKG DIR Qty: 28 0RF Hold Instructions: until seen by his practice business asst Rx Instructions: PO PER PKG DIR memantine [Namenda XR] 28 mg capsule,sprinkle,ER 24hr 28 mg PO DAILY Qty: 30 6RF Hold Instructions: until seen by his practice business asst diltiazem HCl 30 mg tablet 30 mg PO BID Qty: 60 5RF Hold Instructions: until seen by his practice business asst Date of admission: 11/24/24 15:38 Primary Care Provider: Ericka Meyer Admitting Provider: Allyson Brown Attending physician on admission: Allyson Brown Condition: Stable
== END 2024-11-25 16:00 | disposition home or self-care (01) ==
LOC: ANHED 12:20 → ANHIMU 16:59
PROVIDERS: Internal Medicine Cardiovascular Disease; Nurse Practitioner Gerontology; Admitting Provider Family Medicine; Emergency Provider Emergency Medicine; PCP Family Medicine; Visit Provider Family Medicine
DX: R00.1 Bradycardia, unspecified (principal); I21.4 Non-ST elevation (NSTEMI) myocardial infarction; I48.92 Unspecified atrial flutter; E78.5 Hyperlipidemia, unspecified; G30.9 Alzheimer's disease, unspecified; F02.80 Dementia in other diseases classified elsewhere, unspecified severity, without behavioral disturbance, psychotic disturbance, mood disturbance, and anxiety; I11.9 Hypertensive heart disease without heart failure; K58.9 Irritable bowel syndrome, unspecified; F41.9 Anxiety disorder, unspecified; Z79.82 Long term (current) use of aspirin; Z79.899 Other long term (current) drug therapy; Z88.0 Allergy status to penicillin; Z85.46 Personal history of malignant neoplasm of prostate; Z92.3 Personal history of irradiation; Z87.11 Personal history of peptic ulcer disease; Z90.49 Acquired absence of other specified parts of digestive tract; Z87.81 Personal history of (healed) traumatic fracture
CPT/HCPCS: 36415; 71046; 78452; 80053; 80061; 81003; 83690; 84484; 85025; 85610; 85730; 93005; 93017; 93306; 96372; 96374; 99285; A9270; A9502; G0378; J1650; J2785

== ENCOUNTER 2025-02-04 11:11 | Inpatient (IN) | payer MEDICARE, BC, SELFPAY ==
[2025-02-04] VITALS (16 sets, daily range): BP systolic 99–148; BP diastolic 48–92; PULSE 41–139; RESP 15–22; TEMP 36.4–36.8; O2SAT 93–100; BMI 22.6
--- NOTE | ~2025-02-04 | XR_ITS ---
EXAMINATION: XR chest 2V 02/04/2025 11:35 INDICATION: Chest tightness PROCEDURE: 2 view chest COMPARISON: 11/24/2024 FINDINGS: The lungs are clear. The cardiomediastinal silhouette is within normal limits. There are no pleural effusions. There is no pneumothorax suspected. IMPRESSION: 1: NO ACUTE CARDIOPULMONARY DISEASE. Reviewed, dictated and finalized at location A.
--- NOTE | 2025-02-04 11:18 | ECG_ITS ---
Test Date: 2025-02-04 12:49:15 Measurements Intervals [place] Rate: 59 P: -20 UT: 169 QRS: 2 QRSD: 96 T: -13 QT: 446 QTc: 442 Interpretive Statements SINUS BRADYCARDIA WITH SINUS ARRHYTHMIA INCOMPLETE RIGHT BUNDLE BRANCH BLOCK [90+ ms QRS DURATION, TERMINAL R IN V1/V2, 40+ ms S IN I/aVL/V4/V5/V6] ST ABNORMALITY, CONSIDER ISCHEMIA ABNORMAL ECG Compared to ECG 02/04/2025 11:14:42 Incomplete right bundle-branch block now present Atrial flutter no longer present ST ABNORMALITY SIGNIFICANTLY IMPROVED Electronically Signed On 02-04-2025 14:10:27 CDT by Giuliano Hair M.D.
--- NOTE | 2025-02-04 11:30 | ED.ARRPALP ---
HPI - Arrhythmia/Palpitations General Chief Complaint: Arrhythmia/Palpitations Stated Complaint: weak/chest tightness Time Seen by Provider: 02/04/25 11:29 Source: patient History of Present Illness HPI narrative: 89 YEARS OLD WHITE MALE, HISTORY OF DEMENTIA CAME FROM SKILLED NURSING WITH POSSIBLE CHEST PAIN PALPITATION PATIENT IS ORIENTED TO HIS NAME ONLY. MONITOR SHOWING AFIB WITH RVR Related Data Home Medications ?Medication ?Instructions ?Recorded ?Confirmed ?Last Taken ?Type aspirin 325 mg tablet,delayed 325 mg PO HS 02/04/25 02/04/25 Unknown History release cyanocobalamin (vitamin B-12) 500 500 mcg PO HS 02/04/25 02/04/25 Unknown History mcg tablet memantine 28 mg capsule 28 mg PO HS 02/04/25 02/04/25 Unknown History sprinkle,extended release 24hr omeprazole 20 mg capsule,delayed 20 mg PO HS 02/04/25 02/04/25 Unknown History release terazosin 2 mg capsule 2 mg PO HS 02/04/25 02/04/25 Unknown History Allergies Allergy/AdvReac Type Severity Reaction Status Date / Time Penicillins Allergy Mild Unknown Verified 02/04/25 11:41 Review of Systems Review of Systems: ROS unobtainable: Yes unobtainable due to mental status PMFSH Past Medical History Medical History Dementia of the Alzheimer's type Gastric ulcer IBS (irritable bowel syndrome) Heart disease Anxiety Seasonal allergies Prostate cancer (2008) Status post radiation. Hyperlipidemia Hypertension Surgical History Surgical History History of cholecystectomy History of craniotomy (1980) Resection benign cyst. Family History Family History Mother Depression Cerebrovascular accident Thyroid disorder Sibling Asthma Heart disease Other Hypertension Social History Social History Social History: Surrogate medical decision maker: Landon Roberson (son). Code status: Full code. Smoking status: Never smoker Alcohol intake: current Substance use: never Do You Feel Safe in your Home?: Yes Lack of Transportation: No Lack of Food: Never True Current Housing: I Have Housing Concerned About Future Housing: No Difficulty Paying Gas/Electric Bills: No Difficulty Paying for Meds: No Currently Unemployed: No Education: Decline to Answer Difficulty w/ Childcare or Family Care: No Additional living arrangements comments: Lives in [place]. lives at [place]. Son Landon lives next door. Additional occupation/education comments: Retired from [employer]. Spiritual care concerns: No Exam Narrative: GENERAL APPEARANCE: WELL-DEVELOPED, WELL-NOURISHED SKIN: NORMAL COLOR HEAD: NORMOCEPHALIC, NONTRAUMATIC EYES: CLEAR CONJUNCTIVA ENT: OROPHARYNX NORMAL, EARS NORMAL, NOSE NORMAL NECK: SUPPLE, NONTENDER CHEST AND RESPIRATORY: AIRWAY PATENT, NO RESPIRATORY DISTRESS, NO ACCESSORY MUSCLE USE HEART: TACHYCARDIA, IRREGULAR IRREGULARITY ABDOMEN: SOFT, NONTENDER, NO ORGANOMEGALY, QUIET BOWEL SOUNDS VASCULAR: NORMAL PERIPHERAL PULSES, NORMAL CAPILLARY REFILL. MUSCULOSKELETAL: NORMAL RANGE OF MOTION, NONTENDER BACK NEUROLOGIC: ALERT AND ORIENTED TO HIS NAME ONLY Course Consultations Consultation #1: DR PRADO Date: 02/04/25 Vital Signs Vital signs: Vital Signs Pulse Rate 123 H 02/04/25 11:11 Respiratory Rate 19 02/04/25 11:11 Blood Pressure 121/89 02/04/25 11:11 Pulse Oximetry 97 02/04/25 11:11 Oxygen Delivery Room Air 02/04/25 11:11 Temperature 36.8 C 02/04/25 16:00 Pulse Rate 52 L 02/04/25 18:00 Respiratory Rate 20 02/04/25 16:00 Blood Pressure 119/48 L 02/04/25 16:00 Pulse Oximetry 93 02/04/25 16:00 Oxygen Delivery Room Air 02/04/25 16:00 MDM - Arrhythmia/Palpitations MDM Narrative Medical decision making narrative: PATIENT CAME WITH AFIB WITH RVR, VITAL SIGNS SHOWING HEART RATE OF 123 OTHERWISE WITHIN NORMAL LIMIT PHYSICAL EXAMINATION SHOWING A PATIENT WITH DEMENTIA ORIENTED TO HIS NAME ONLY, UNABLE TO COMPLAIN DIFFERENTIAL DIAGNOSIS AFIB WITH RVR, CORONARY ARTERY DISEASE, HYPERTHYROIDISM, ELECTROLYTE IMBALANCE, DEHYDRATION BLOOD WORKUP TODAY INCLUDES CBC, CMP, TROPONIN, PROBNP, TSH SHOWED TROPONIN 0.292 OTHERWISE WITHIN NORMAL LIMIT CHEST X-RAY SHOWED NO ACUTE ABNORMALITIES EKG ON ARRIVAL SHOWED AFIB WITH RVR AT 123 BEATS PER MINUTE, LOPRESSOR 5 MG IV X2, COMPARED TO SINUS BRADYCARDIA AT 59 BEATS PER MINUTE. ELEVATED TROPONIN PROBABLY SECONDARY TO DEMAND ISCHEMIA, N STEMI PATIENT STARTED ON HEPARIN ADMIT TO HOSPITALIST DR. PRADO WAS CONSULTED Differential Diagnosis Differential diagnosis: Likely other ( ABOVE) Medical Records Attestation: I reviewed the patient's medical records. Lab Data Attestation: I reviewed the patient's lab results. 02/04/25 11:42 02/04/25 11:42 Labs: Lab Results 02/04/25 02/04/25 Range/Units 11:42 14:37 WBC 6.9 (4.5-10.0) K/mm3 RBC 4.43 L (4.6-6.20) M/mm3 Hgb 14.8 (14.0-18.0) g/dL Hct 44.4 (42.0-52.0) % MCV 100.2 H (80-100) fl MCH 33.4 (26-34) pg MCHC 33.3 (32-36) g/dl RDW 12.9 (11.5-14.5) % Plt Count 175 (150-375) k/mm3 MPV 9.3 (7.4-10.4) fl Immature Gran % (Auto) 0.3 (0-0.5) % Neut % (Auto) 80.5 H (45.5-73.1) % Lymph % (Auto) 14.6 L (18.3-44.2) % [place] % (Auto) 4.3 (2.6-8.5) % Eos % (Auto) 0.0 (0-4.4) % Baso % (Auto) 0.3 (0.2-1.2) % Lymph # (Auto) 1.01 (0.9-3.2) K/mm3 [place] # (Auto) 0.3 (0.1-0.6) K/mm3 Eos # (Auto) 0.0 (0-0.3) K/mm3 Baso # (Auto) 0.0 (0.0-0.1) K/mm3 Abs Immat Gran (auto) 0.02 (0.00-0.031) K/mm3 Absolute Neuts (auto) 5.6 (1.3-6.7) K/mm3 Absolute Nucleated RBC 0.000 (0.0-0.012) K/mm3 Nucleated RBC % 0.0 (0.0-0.2) % PT 14.0 (11.1-14.7) Seconds INR 1.1 APTT 24.2 (22.3-36.8) Seconds Sodium 136 L (137-145) mmol/L Potassium 4.1 (3.4-5.0) mmol/L Chloride 103 (98-107) mmol/L Carbon Dioxide 24 (22-30) mmol/L Anion Gap 9 (4-12) mmol/L BUN 17 (9-20) mg/dL Creatinine 0.92 (0.7-1.3) mg/dL Estim Creat Clear Calc 50 ml/min Estimated GFR > 60 (59 - ) Glucose 126 H (65-110) mg/dL Calcium 9.9 (8.4-10.2) mg/dL Total Bilirubin 0.8 (0.2-1.3) mg/dL AST 30 (17-59) U/L ALT 18 (6-50) U/L Alkaline Phosphatase 42 (38-126) U/L Troponin I 0.292 H* 2.240 H* D (0.000-0.034) ng/mL Total Protein 7.0 (6.3-8.2) g/dL Albumin 4.1 (3.5-5.1) g/dL Lipase 48 (23-300) U/L TSH 1.490 (0.465-4.680) uIU/mL Imaging Data Radiologist's impression: CHEST X-RAY SHOWED NO ACUTE ABNORMAL Impressions Chest X-Ray 02/04/25 11:41 IMPRESSION: 1: NO ACUTE CARDIOPULMONARY DISEASE. ECG Data EKG #1: Attestation: I personally reviewed and interpreted this ECG as follows: ECG completion date: 02/04/25 Prior ECG tracings: not available for review Interpretation: AFIB WITH RVR AT 123 BEATS PER MINUTE, RIGHT VENTRICULAR CONDUCTION DELAY, MARKED ST DEPRESSION, CONSIDER SUBENDOCARDIAL INJURY, ST ELEVATION IN AVR. EKG #2: Attestation: I personally reviewed and interpreted this ECG as follows: ECG completion date: 02/04/25 Interpretation: SINUS BRADYCARDIA AT 59 BEATS PER MINUTE, RIGHT BUNDLE-BRANCH BLOCK, MODERATE ST DEPRESSION, ABNORMAL EKG COMPARED TO EKG EARLY TODAY, AFIB WITH RVR RESOLVED Discharge Plan Discharge Clinical Impression: Atrial fibrillation with rapid ventricular response Patient Disposition: Still a Patient Condition: Improved
[2025-02-04] MEDS: ASPIRIN 81 MG CHEWABLE TABLET 324 MG PO (11:40)
[2025-02-04] MEDS: METOPROLOL TARTRATE INJ 5 MG/5 ML VIAL ×2 (11:40→11:45)
[2025-02-04 11:50] LABS: Hematocrit 44.4 % (42.0-52.0); Hemoglobin 14.8 g/dL (14.0-18.0); Immature Granulocyte Percent A 0.3 % (0-0.5); Lymphocytes Absolute Auto 1.01 K/mm3 (0.9-3.2); Mean Corpuscular HGB Conc 33.3 g/dl (32-36); Mean Corpuscular Hemoglobin 33.4 pg (26-34); Mean Corpuscular Volume 100.2 fl (80-100); Nucleated Red Blood Cells Absolute Auto 0.000 K/mm3 (0.0-0.012); Nucleated Red Blood Cells Perc 0.0 % (0.0-0.2); Platelet Count Result 175 k/mm3 (150-375); Red Blood Count 4.43 M/mm3 (4.6-6.20); White Blood Count 6.9 K/mm3 (4.5-10.0)
[2025-02-04 12:13] LABS: INR 1.1; Prothrombin Time 14.0 Seconds (11.1-14.7)
[2025-02-04 12:14] LABS: Partial Thromboplastin Time 24.2 Seconds (22.3-36.8)
[2025-02-04 12:15] LABS: Alanine Aminotransferase 18 U/L (6-50); Albumin Level 4.1 g/dL (3.5-5.1); Alkaline Phosphatase 42 U/L (38-126); Anion Gap 9 mmol/L (4-12); Aspartate Amino Transferase 30 U/L (17-59); Bilirubin,Total 0.8 mg/dL (0.2-1.3); Blood Urea Nitrogen 17 mg/dL (9-20); Calcium 9.9 mg/dL (8.4-10.2); Carbon Dioxide 24 mmol/L (22-30); Chloride 103 mmol/L (98-107); Estimated CRCL calculation 50 ml/min; Estimated Glomerular Filt Rate > 60; Glucose 126 mg/dL (65-110); Lipase 48 U/L (23-300); Potassium 4.1 mmol/L (3.4-5.0); Sodium 136 mmol/L (137-145); Total Protein 7.0 g/dL (6.3-8.2)
[2025-02-04] MEDS: HEPARIN SOD/D5W 100 UNITS/ML 25,000 UNITS/250 ML BAG 9 UNITS IV CONT (12:15)
--- NOTE | 2025-02-04 12:23 | ECG_ITS ---
Test Date: 2025-02-04 11:14:42 Measurements Intervals [place] Rate: 123 P: 0 MN: 0 QRS: 43 QRSD: 90 T: 28 QT: 257 QTc: 368 Interpretive Statements ATRIAL FLUTTER/TACHYCARDIA WITH RAPID VENTRICULAR RESPONSE POSSIBLE RIGHT VENTRICULAR CONDUCTION DELAY [RSR (QR) IN V1/V2] MARKED ST DEPRESSION, CONSIDER SUBENDOCARDIAL INJURY [0.2+ mV ST DEPRESSION] ACUTE MA ABNORMAL ECG Electronically Signed On 02-04-2025 14:07:09 CDT by Giuliano Hair M.D.
[2025-02-04 12:30] LABS: Troponin I 0.292 ng/mL (0.000-0.034)
--- OUTSIDE RECORDS SUMMARY | 2025-02-04 12:55 | XMS_ITS | Clinical Summary ---
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
--- OUTSIDE RECORDS SUMMARY | 2025-02-04 12:55 | XMS_ITS | Encounter Summary ---
Author Organization [facility] Address [address] [place] [address] Care Team Providers Care Six Horse Hitch Driver Name Role Phone Sandip Cortes Primary Care Provider + Asia Flores RN Unavailable [phone] Encounter Details Date Type Department Care Team (Late st Contact Info) Description 05/04/2020 Abstract [facility] at [address] [phone] Nik Liang MA Social History Tobacco Use [...] documented as of this encounter Care Teams Six Horse Hitch Driver Relationship Specialty Start Date End Date Sandip Cortes DO [address] [place] [phone] PCP - General FAMILY PRACTICE 04/08/20 Asia Flores, RN [address] [place] [address] Trip Follower (Ambulatory) REGISTERED NURSE 01/27/22 documented as of this encounter
--- OUTSIDE RECORDS SUMMARY | 2025-02-04 12:55 | XMS_ITS | Referral Summary ---
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
--- OUTSIDE RECORDS SUMMARY | 2025-02-04 12:55 | XMS_ITS | Clinical Summary ---
Author Organization [facility] Address [address] [place] [address] Care Team Providers Care Regional Safety Manager Name Role Phone Sandip Cortes DO Primary [...] 11/23/2016 04/28/2021 Acute cholecystitis 06/21/2016 04/08/20 20 Immunizations Immunization Administration Dates Next Due Pneumococcal [...] 11:03 AM CDT Height 175.3 cm (5' 9) 03/30/2022 11:03 AM CDT Body Mass Index [...] - 2023-2 5 season) 2024 PHQ-2 (Physician [place]) 07/16/2024 Pneumococcal Vaccine: 50+ Years Completed 02/03/2019, 11/30/2017 Meningococcal B Vaccine Aged Out No l onger eligible based on patient's age to complete this topic Meningococcal Vaccine Aged Out No sarah beth taisha eligible based on patient's age to complete this topic RSV Immunizations Under 20 Months Aged Out No longer eligible b ased on patient's age to complete this topic Insurance MEDICARE [facility] MEDICARE [facility] Care Teams Regional Safety Manager Relationship Specialty Start Date End Date Sandip Cortes DO [address] [place] [phone] PCP - General FAMILY PRACTICE 04/08/20
--- OUTSIDE RECORDS SUMMARY | 2025-02-04 12:55 | XMS_ITS | Clinical Summary ---
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 Gender Identity Not on file Sexual Orientation [...] 12:35 PM CDT Height 175.3 cm (5' 9) 12/30/2018 12:35 PM CDT Body Mass Index 22.15 12/30/2018 12:35 PM CDT Plan of Treatment Health Maintenance Due Date Last Done Comments DTAP/TDAP/TD VACCINES (1 - Tdap) 1954 PNEUMOCOCCAL VACCINE 50+ YEARS (1 of 1 - PCV) 06/28/19 87 ZOSTER VACCINE (1 of 2) 1987 RSV VACCINE (60+ or ) (1 - 1-dose 75+ series) 2012 INFLUENZA VACCINE (#1) 2025 Insurance MEDICARE PART A AND B [facility] [employer]AL Advance Directives For more information, please contact: [phone] * Full Code (Latest Code Status on File) Date Activated Date Inactivated Comments 11/21/2016 10:49 PM 11/24/2016 9:02 PM
--- OUTSIDE RECORDS SUMMARY | 2025-02-04 12:55 | XMS_ITS ---
Author Name Auto Generated, Auto Generated Organization [facility] Address [address] [place] [address] Phone [phone] Care Team Providers Care Metal Can Inspector Name Role Phone Jaspal Pate Unavailable [phone] Miquel Cervantes Unavailable [phone] Smith Trevino Unavailable [phone] Functional Status No Results Mental Status No Results Allergies and Intolerances Name Onset Date Reaction Severity penicillin (Allergy) SunJul 12 09:43:00 EST 202 4 Encounters Program Name Primary Diagnosis Admission Date/Time Dis charge Date/Time Assisted Living Area Alzheimer's disease , unspecified SunJul 11 19:00:00 EST 2023 [facility] SunOct 12 20:00:00 EDT 2024November 24 18:00:00 EDT 2024 Immunizations Name Dates Status TST-PPD intradermal SunJul 14 01:00:00 EST 2023 Completed TST-PPD intradermal SunJul 21 01:00:00 EST 2024 Completed Medications Medication Directions Start Date End Date cyanocobalamin (vit B-12) 500 mcg tablet 1 tab TABLET Oral 1 Time Daily Indication: vitamin b12 deficiency [facility] [employer] supervision x4 SunJan 02 01:00:00 EDT 2024 donepeziL 5 mg tablet 1 tablet TABLET Or al 1 Time Daily Indication: dementia [facility] [employer] supervision x4 SunDec 17 01:00:00 EDT 2024 memantine 28 mg capsule sprinkle,extended release 24hr 1 capsule CAPSULE SPRINKLE, EXTENDED RELEASE 24 HR Oral 1 Time Daily Indication: Dementia [facility] [employer] supervision x4 SunDecember 04 01:00:00 EDT 2024 donepeziL 10 mg tablet 1 tablet TABLET O ral 1 Time Daily Indication: dementia [employer] [employer] supervision x4 Carmella December 04 01:00:00 EDT 2024Dec 17 09:58:00 EDT 2024 donepeziL 10 mg tablet 1 tablet TABLET O ral 1 Time Daily Indication: dementia [facility] [facility] [employer] supervision x4 SunOct 17 11:13:00 EDT 2024November 26 07:56:00 EDT 2024 losartan 50 mg tablet 1 tablet TABLET Or al 1 Time Daily Indication: HTN [facility] [employer] supervision x4 SunOct 17 11:14:00 EDT 2024 omeprazole 20 mg capsule,delayed release 1 capsule CAPSULE,DELAYED RELEASE (ENTERIC COATED) Oral 1 Time Daily Indication: acid reflex [facility] supervision x4 SunOct 17 11:15:00 EDT 2024 terazosin 2 mg capsule 1 capsule CAPSULE Oral 1 Time Daily Indication: HTN [facility] [employer] supervision x4 SunOct 17 11:15:00 EDT 2024 Blood Pressure Kit 1 KIT Other 2 Times Monthly Indication: Vital signs [facility] to obtain SunOct 17 11:16:00 EDT 2024 aspirin 325 mg tablet,delayed release 1 tablet TABLET, DELAYED RELEASE (ENTERIC COATED) Oral 1 Time Daily Indication: anticoagulant [facility] [employer] supervision x4 SunOct 17 11:17:00 EDT 2024 fluticasone propionate 50 mcg/actuation nasal spray,suspension 1 spray both nostrils SPRAY, SUSPENSION Intranasal 2 Times Daily Indication: allergies [facility] to remind resident. SunOct 17 11:17:00 EDT 2024 memantine 28 mg capsule sprinkle,extended release 24hr 1 capsule CAPSULE SPRINKLE, EXTENDED RELEASE 24 HR Oral 1 Time Daily Indication: Dementia [facility] supervision x4 SunOct 17 11:19:00 EDT 2024November 26 07:58:00 EDT 2024 dilTIAZem 30 mg tablet 1 tablet TABLET O ral 2 Times Daily Indication: HTN [employer] supervision x1 x4 SunOct 17 11:19:00 EDT 2024November 26 07:59:00 EDT 2024 prednisoLONE acetate 1 % eye drops,suspension 1 gtt Left Eye 1 Time Daily for 7 Days Indication: cataract surgery Cataracts Surgery Left eye 1 gtts QDafter surgery eye gttsx 1weekNurse Administer SunOct 29 01:00:00 EDT 2024Nov 05 00:59:00 EDT 2024 prednisoLONE acetate 1 % eye drops,suspension 1 gtt Left Eye 2 Times Daily for 7 Days Indication: cataract surgery Cataracts Surgery Left eye 1 gtts BIDafter surgery eye gttsx 1weekNurse Administer SunOct 22 01:00:00 EDT 2024Oct 29 00:59:00 EDT 2024 prednisoLONE acetate 1 % eye drops,suspension 1 gtt Left Eye 4 Times Daily for 5 Days Indication: cataract surgery Cataracts Surgery Left eye 1 gtts QIDafter surgery eye gttsx 1weekNurse Administer SunOct 17 01:00:00 EDT 2024Oct 22 00:59:00 EDT 2024 ofloxacin 0.3 % eye drops 1 gtt Right Ey e Continuous Indication: Cataracts Surgery Right eye 1 gtts TID2 days prior Nurse Administer SunOct 21 01:00:00 EDT 2024November 14 16:17:00 EDT 2024 ketorolac 0.5 % eye drops 1 gtt Right Ey e Continuous Indication: Cataracts Surgery RT eye 1 gtts TID2 days prior Nurse Administer SunOct 16 14:00:00 EDT 2024November 14 16:18:00 EDT 2024 prednisoLONE acetate 1 % eye drops,suspension 1 gtt Right Eye Continuous Indication: cataract surgery Cataracts Surgery Right eye 1 gtts BIDafter surgery eye gttsx 1weekNurse Administer SunOct 16 16:00:00 EDT 2024November 14 16:18:00 EDT 2024 prednisoLONE acetate 1 % eye drops,suspension 1 gtt Left Eye 1 Time Daily for 7 Days Indication: cataract surgery Cataracts Surgery Left eye 1 gtts QDafter surgery eye gttsx 1weekNurse Administer SunOct 29 01:00:00 EDT 2024Oct 17 13:18:00 EDT 2024 prednisoLONE acetate 1 % eye drops,suspension 1 gtt Left Eye 2 Times Daily for 7 Days Indication: cataract surgery Cataracts Surgery Left eye 1 gtts BIDafter surgery eye gttsx 1weekNurse Administer SunOct 22 01:00:00 EDT 2024Oct 17 13:20:00 EDT 2024 prednisoLONE acetate 1 % eye drops,suspension 1 gtt Left Eye 4 Times Daily for 7 Days Indication: cataract surgery Cataracts Surgery Left eye 1 gtts QIDafter surgery eye gttsx 1weekNurse Administer SunOct 15 01:00:00 EDT 2024Oct 17 13:24:00 EDT 2024 prednisoLONE acetate 1 % eye drops,suspension 1 gtt Left Eye 3 Times Daily for 21 Days Indication: Cataracts Surgery Left eye 1 gtts TIDafter surgery eye gttsx 3 weeksNurse Administer SunSep 22 12:55:00 EDT 2024Sep 22 14:11:00 EDT 2024 ofloxacin 0.3 % eye drops 1 gtt Left Eye 3 Times Daily for 7 Days Indication: Cataracts Surgery Left eye 1 gtts TID post op 1 weekNurse Administer SunSep 22 12:55:00 EDT 2024Sep 29 09:53:00 EDT 2024 ketorolac 0.5 % eye drops 1 gtt Left Eye 3 Times Daily for 14 Days Indication: Cataracts Surgery Left eye 1 gtts TIDNurse Administer SunSep 22 12:55:00 EDT 2024Oct 06 10:36:00 EDT 2024 prednisoLONE acetate 1 % eye drops,suspension 1 gtt Left Eye 3 Times Daily for 7 Days Indication: Cataracts Surgery Left eye 1 gtts TIDafter surgery eye gttsx 1weekNurse Administer SunSep 22 14:02:00 EDT 2024Sep 29 09:54:00 EDT 2024 prednisoLONE acetate 1 % eye drops,suspension 1 gtt Left Eye 2 Times Daily for 7 Days Indication: cataract surgery Cataracts Surgery Left eye 1 gtts BIDafter surgery eye gttsx 1weekNurse Administer SunSep 29 01:00:00 EDT 2024Oct 06 00:59:00 EDT 2024 prednisoLONE acetate 1 % eye drops,suspension 1 gtt Left Eye 1 Time Daily for 7 Days Indication: cataract surgery Cataracts Surgery Left eye 1 gtts QDafter surgery eye gttsx 1weekNurse Administer SunOct 06 01:00:00 EDT 2024Oct 13 00:59:00 EDT 2024 ketorolac 0.5 % eye drops 1 gtt Left Eye 3 Times Daily for 7 Days Indication: Cataracts Surgery Left eye 1 gtts TIDpost op 1 weekNurse Administer SunSep 23 01:00:00 EDT 2024Sep 22 13:57:00 EDT 2024 ofloxacin 0.3 % eye drops 1 gtt Left Eye 3 Times Daily for 7 Days Indication: Cataracts Surgery Left eye 1 gtts TID post op 1 weekNurse Administer SunSep 23 01:00:00 EDT 2024Sep 22 13:57:00 EDT 2024 prednisoLONE acetate 1 % eye drops,suspension 1 % 1 gtt Left Eye 3 Times Daily for 21 Days Indication: Cataracts Surgery Left eye 1 gtts TIDafter surgery eye gttsx 3 weeksNurse Administer SunSep 23 01:00:00 EDT 2024Sep 22 13:57:00 EDT 2024 ofloxacin 0.3 % eye drops 0.3 % 1 gtt Left Eye 3 Times Daily for 2 Days Indication: Cataracts Surgery Left eye 1 gtts TID2 days prior Nurse Administer Sat Sep 20 01:00:00 EST 2024Sep 22 00:59:00 EDT 2024 ketorolac 0.5 % eye drops 0.5 % 1 gtt Left Eye 3 Times Daily for 2 Days Indication: Cataracts Surgery Left eye 1 gtts TID2 days prior Nurse Administer Sat Sep 20:00:00 EST 2024Sep 22 00:59:00 EDT 2024 dilTIAZem 30 mg tablet 1 tablet TABLET O ral 2 Times Daily Indication: HTN [facility] [facility] [employer] supervision x1 x4 SunAug 01 14:45:00 EST 2024Oct 17 11:20:00 EDT 2024 TubersoL 5 tub. unit/0.1 mL intradermal injection solution 0.1 ml VIAL (ML) Intradermal 1 Time Weekly for 2 Weeks Indication: TB 1st injection on admission, then one week after. Read between 48 and 72 hours SunJul 14 01:00:00 2023Jul 28 00:59:00 EST 2024 Blood Pressure Kit 1 KIT Other 2 Times Monthly Indication: Vital signs [facility] [facility] [employer] to obtain SunJul 13:00:00 EST 2023Oct 17 11:17:00 EDT 2024 Blood Pressure Cuff 1 EACH Other 2 Times Daily for 7 Days Indication: blood pressure [employer] to obtain SunJul 13:00:00 EST 2023Jul 20 00:59:00 EST 2024 aspirin 325 mg tablet,delayed release 1 tablet TABLET, DELAYED RELEASE (ENTERIC COATED) Oral 1 Time Daily Indication: anticoagulant [employer] supervision x4 SunJul 13:00:00 EST 2023Oct 17 11:18:00 EDT 2025 fluticasone propionate 50 mcg/actuation nasal spray,suspension 1 spray both nostrils SPRAY, SUSPENSION Intranasal 2 Times Daily Indication: allergies [facility] [facility] [employer] to remind resident. SunJul 13 17:00:00 EST 2023Oct 17 11:19:00 EDT 2024 memantine 28 mg capsule sprinkle,extended release 24hr 1 capsule CAPSULE SPRINKLE, EXTENDED RELEASE 24 HR Oral 1 Time Daily Indication: Dementia [facility] supervision x4 SunJul 18 01:00:00 EST 2024Oct 17 11:20:00 EDT 2024 dilTIAZem 120 mg tablet 1 tablet TABLET Oral 1 Time Daily Indication: HTN [employer] supervision x4 SunJul 13 01:00:00 EST 2023Aug 01 14:47:00 EST 2024 donepeziL 10 mg tablet 1 tablet TABLET O ral 1 Time Daily Indication: dementia [employer] supervision x4 SunJul 13 01:00:00 EST 2023Oct 17 11:15:00 EDT 2024 losartan 50 mg tablet 1 tablet TABLET Or al 1 Time Daily Indication: HTN [employer] supervision x4 SunJul 13 01:00:00 EST 2023Oct 17 11:15:00 EDT 2024 omeprazole 20 mg capsule,delayed release 1 capsule CAPSULE,DELAYED RELEASE (ENTERIC COATED) Oral 1 Time Daily Indication: acid reflex [employer] supervision x4 SunJul 13 01:00:00 EST 2023Oct 17 11:16:00 EDT 2024 terazosin 2 mg capsule 1 capsule CAPSULE Oral 1 Time Daily Indication: HTN [employer] supervision x4 SunJul 13 01:00:00 EST 2023Oct 17 11:16:00 EDT 2024 memantine 10 mg tablet 1 tablet TABLET O ral 2 Times Daily for 5 Days Indication: Dementia [employer] supervision x1, x4 SunJul 13 01:00:00 EST 2023Jul 18 00:59:00 EST 2024 Problems Active Concerns * Unspecified dementia, unspecified severity, without behavioral disturbance, psychotic disturbance, mood disturbance, and anxiety* Code: * Start Date: SunJul 12 00:00:00 EST 2023 * End Date: SunJul 14 00:00:00 EST 2023 * Text: * Essential (primary) hypertension* Code: * Start Date: SunJul 12 00:00:00 2023 * End Date: * Text: * Anxiety disorder, unspecified* Code: * Start Date: SunJul 12 00:00:00 EST 2023 * End Date: * Text: * Heart disease, unspecified* Code: * Start Date: SunJul 12 00:00:00 EST 2023 * End Date: * Text: * Hyperlipidemia, unspecified* Code: * Start Date: SunJul 12 00:00:00 EST 2023 * End Date: * Text: * Irritable bowel syndrome, unspecified* Code: * Start Date: SunJul 12 00:00:00 EST 2023 * End Date: * Text: * Personal history of malignant neoplasm of prostate* Code: * Start Date: SunJul 12 00:00:00 EST 2023 * End Date: * Text: * Other seasonal allergic rhinitis* Code: * Start Date: SunJul 12 00:00:00 EST 2023 * End Date: * Text: * Personal history of benign neoplasm of the brain* Code: * Start Date: SunJul 12 00:00:00 EST 2023 * End Date: * Text: * Paroxysmal atrial fibrillation* Code: * Start Date: SunJul 12 00:00:00 EST 2023 * End Date: * Text: * Alzheimer's disease, unspecified* Code: * Start Date: SunJul 12 00:00:00 EST 2023 * End Date: * Text: * Dementia in other diseases classified elsewhere, unspecified severity, without behavioral disturbance, psychotic disturbance, mood disturbance, and anxiety* Code: * Start Date: SunJul 12 00:00:00 EST 2023 * End Date: SunJul 14 00:00:00 EST 2023 * Text: * Gastro-esophageal reflux disease without esophagitis* Code: * Start Date: SunJul 12 00:00:00 EST 2023 * End Date: * Text: * penitentiary (current) use of aspirin* Code: * Start Date: SunJul 12 00:00:00 EST 2023 * End Date: * Text: * Dementia in other diseases classified elsewhere, unspecified severity, with mood disturbance* Code: * Start Date: SunJul 12 00:00:00 EST 2023 * End Date: * Text: * Cognitive communication deficit* Code: * Start Date: SunOct 13 00:00:00 EDT 2024 * End Date: * Text: * Other abnormalities of gait and mobility* Code: * Start Date: SunOct 13 00:00:00 EDT 2024 * End Date: * Text: * Unsteadiness on feet* Code: * Start Date: SunOct 13 00:00:00 EDT 2024 * End Date: * Text: * Bradycardia, unspecified* Code: * Start Date: SunNovember 25 00:00:00 EDT 2024 * End Date: * Text: * Other specified abnormalities of plasma proteins* Code: * Start Date: SunNovember 25 00:00:00 EDT 2024 * End Date: * Text: Vital Signs Vital Sign Measurement Date Systolic Blood Pressure 133.00 mm[Hg] SunFeb 04 11:23:28 EDT 2024 Diastolic Blood Pressure 98.00 mm[Hg] SunFeb 04 11:23:28 EDT 2024 Pulse Oximetry 96.00 % SunFeb 04 11:23 :28 EDT 2024 Heart Rate 112.00 /min SunFeb 04 11:23 :28 EDT 2024 Respiratory rate 24.00 /min SunFeb 04 11:2 3:28 EDT 2024 Systolic Blood Pressure 126.00 mm[Hg] SunJan 30 23:01:57 EDT 2024 Diastolic Blood Pressure 75.00 mm[Hg] SunJan 30 23:01:57 EDT 2024 Pulse Oximetry 94.00 % SunJan 30 23:01 :57 EDT 2024 Body weight 153.80 [lb_av] SunJan 30 23:01 :57 EDT 2024 Heart Rate 74.00 /min SunJan 30 23:01 :57 ED2024 Body temperature 98.40 [degF] SunJan 30 23:0 1:57 EDT 2024 Respiratory rate 18.00 /min SunJan 30 23:0 1:57 EDT 2024 Systolic Blood Pressure 168.00 mm[Hg] SunJan 16 22:34:37 EDT 2024 Diastolic Blood Pressure 92.00 mm[Hg] SunJan 16 22:34:37 EDT 2024 Pulse Oximetry 95.00 % SunJan 16 22:34 :37 EDT 2024 Body weight 154.60 [lb_av] SunJan 16 22:34 :37 EDT 2024 Heart Rate 66.00 /min SunJan 16 22:34 :37 ED2024 Body temperature 98.20 [degF] SunJan 16 22:3 4:37 EDT 2024 Respiratory rate 18.00 /min SunJan 16 22:3 4:37 EDT 2024 Systolic Blood Pressure 175.00 mm[Hg] SunDec 31 17:58:59 EDT 2024 Diastolic Blood Pressure 88.00 mm[Hg] SunDec 31 17:58:59 EDT 2024 Pulse Oximetry 97.00 % SunDec 31 17:58 :59 EDT 2024 Body weight 155.60 [lb_av] SunDec 31 17:58 :59 EDT 2024 Heart Rate 51.00 /min SunDec 31 17:58 :59 EDT 2024 Body temperature 97.70 [degF] SunDec 31 17:5 8:59 EDT 2024 Respiratory rate 18.00 /min SunDec 31 17:5 8:59 EDT 2024 Systolic Blood Pressure 168.00 mm[Hg] SunDec 21 15:34:39 EDT 2024 Diastolic Blood Pressure 87.00 mm[Hg] SunDec 21 15:34:39 EDT 2024 Heart Rate 52.00 /min SunDec 21 15:34 :39 EDT 2024 Systolic Blood Pressure 143.00 mm[Hg] SunDec 17 20:12:01 EDT 2024 Diastolic Blood Pressure 78.00 mm[Hg] SunDec 17 20:12:01 EDT 2024 Pulse Oximetry 95.00 % SunDec 17 20:12 :01 EDT 2024 Body weight 153.80 [lb_av] SunDec 17 20:12 :01 EDT 2024 Heart Rate 56.00 /min SunDec 17 20:12 :01 EDT 2024 Body temperature 98.00 [degF] SunDec 17 20:1 2:01 EDT 2024 Respiratory rate 18.00 /min SunDec 17 20:1 2:01 EDT 2024 Systolic Blood Pressure 130.00 mm[Hg] SunNovember 30 21:09:08 EDT 2024 Diastolic Blood Pressure 70.00 mm[Hg] SunNovember 30 21:09:08 EDT 2024 Pulse Oximetry 95.00 % SunNovember 30 21:09 :08 EDT 2024 Body weight 155.20 [lb_av] SunNovember 30 21:09 :08 EDT 2024 Heart Rate 55.00 /min SunNovember 30 21:09 :08 EDT 2024 Body temperature 98.40 [degF] SunNovember 30 21:0 9:08 EDT 2024 Respiratory rate 18.00 /min SunNovember 30 21:0 9:08 EDT 2024 Systolic Blood Pressure 144.00 mm[Hg] SunNovember 25 19:00:00 EDT 2024 Diastolic Blood Pressure 85.00 mm[Hg] SunNovember 25 19:00:00 EDT 2024 Pulse Oximetry 98.00 % SunNovember 25 19:00 :00 EDT 2024 Heart Rate 61.00 /min SunNovember 25 19:00 :00 EDT 2024 Body weight 149.60 [lb_av] SunNovember 25 19:00 :00 EDT 2024 Body temperature 97.20 [degF] SunNovember 25 19:0 0:00 EDT 2024 Respiratory rate 18.00 /min SunNovember 25 19:0 0:00 EDT 2024 Systolic Blood Pressure 168.00 mm[Hg] SunNovember 16 17:25:10 EDT 2024 Diastolic Blood Pressure 87.00 mm[Hg] SunNovember 16 17:25:10 EDT 2024 Pulse Oximetry 94.00 % SunNovember 16 17:25 :10 EDT 2024 Body weight 150.60 [lb_av] SunNovember 16 17:25 :10 EDT 2024 Heart Rate 63.00 /min SunNovember 16 17:25 :10 EDT 2024 Body temperature 98.30 [degF] SunNovember 16 17:2 5:10 EDT 2024 Respiratory rate 18.00 /min SunNovember 16 17:2 5:10 EDT 2024 Systolic Blood Pressure 156.00 mm[Hg] SunOct 31 21:26:01 EDT 2024 Diastolic Blood Pressure 80.00 mm[Hg] SunOct 31 21:26:01 EDT 2024 Pulse Oximetry 96.00 % SunOct 31 21:26 :01 EDT 2024 Body weight 156.00 [lb_av] SunOct 31 21:26 :01 EDT 2024 Body temperature 98.40 [degF] SunOct 31 21: 6:01 EDT 2024 Heart Rate 52.00 /min SunOct 31:26 :01 EDT 2024 Respiratory rate 18.00 /min SunOct 31 21: 6:01 EDT 2024 Systolic Blood Pressure 159.00 mm[Hg] SunOct 17 20:17:01 EDT 2024 Diastolic Blood Pressure 86.00 mm[Hg] SunOct 17 20:17:01 EDT 2024 Pulse Oximetry 95.00 % SunOct 17 20:17 :01 EDT 2024 Body weight 157.00 [lb_av] SunOct 17 20:17 :01 EDT 2024 Heart Rate 52.00 /min SunOct 17 20:17 :01 EDT 2024 Body temperature 98.60 [degF] SunOct 17 20:1 7:01 EDT 2024 Respiratory rate 18.00 /min SunOct 17 20:1 7:01 EDT 2024 Systolic Blood Pressure 160.00 mm[Hg] SunSep 30 18:55:36 EDT 2024 Diastolic Blood Pressure 84.00 mm[Hg] SunSep 30 18:55:36 EDT 2024 Pulse Oximetry 94.00 % SunSep 30 18:55 :36 EDT 2024 Body weight 159.20 [lb_av] SunSep 30 18:55 :36 EDT 2024 Heart Rate 56.00 /min SunSep 30 18:55 :36 EDT 2024 Body temperature 98.10 [degF] SunSep 30 18:5 5:36 EDT 2024 Respiratory rate 18.00 /min SunSep 30 18:5 5:36 EDT 2024 Systolic Blood Pressure 141.00 mm[Hg] SunSep 16 15:43:56 EST 2024 Diastolic Blood Pressure 74.00 mm[Hg] SunSep 16 15:43:56 EST 2024 Pulse Oximetry 93.00 % SunSep 16 15:43 :56 EST 2024 Body weight 158.80 [lb_av] SunSep 16 15:43 :56 EST 2024 Heart Rate 67.00 /min SunSep 16 15:43 :56 EST 2024 Body temperature 98.10 [degF] SunSep 16 15:4 3:56 EST 2024 Respiratory rate 18.00 /min SunSep 16 15:4 3:56 EST 2024 Systolic Blood Pressure 125.00 mm[Hg] SunSep 02 19:12:14 EST 2024 Diastolic Blood Pressure 75.00 mm[Hg] SunSep 02 19:12:14 EST 2024 Pulse Oximetry 95.00 % SunSep 02 19:12 :14 EST 2024 Body weight 158.40 [lb_av] SunSep 02 19:12 :14 EST 2024 Heart Rate 60.00 /min SunSep 02 19:12 :14 EST 2024 Body temperature 97.50 [degF] SunSep 02 19:1 2:14 EST 2024 Respiratory rate 18.00 /min SunSep 02 19:1 2:14 EST 2024 Systolic Blood Pressure 156.00 mm[Hg] SunAug 19 19:07:29 EST 2024 Diastolic Blood Pressure 72.00 mm[Hg] SunAug 19 19:07:29 EST 2024 Pulse Oximetry 97.00 % SunAug 19 19:07 :29 EST 2024 Body weight 159.20 [lb_av] SunAug 19 19:07 :29 EST 2024 Heart Rate 58.00 /min SunAug 19 19:07 :29 EST 2024 Body temperature 97.30 [degF] SunAug 19 19:0 7:29 EST 2024 Respiratory rate 18.00 /min SunAug 19 19:0 7:29 EST 2024 Systolic Blood Pressure 182.00 mm[Hg] [facility] Aug 02 18:47:16 EST 2024 Diastolic Blood Pressure 102.00 mm[Hg] SunAug 02 18:47:16 EST 2024 Pulse Oximetry 97.00 % [facility] Aug 02 18:47 :16 EST 2024 Body weight 155.00 [lb_av] SunAug 02 18:47 :16 EST 2024 Heart Rate 55.00 /min SunAug 02 18:47 :16 EST 2024 Body temperature 98.10 [degF] [facility] Aug 02 18:4 7:16 EST 2024 Respiratory rate 18.00 /min [facility] Aug 02 18:4 7:16 EST 2024 Systolic Blood Pressure 125.00 mm[Hg] SunJul 19 21:39:45 EST 2024 Diastolic Blood Pressure 81.00 mm[Hg] SunJul 19 21:39:45 EST 2024 Pulse Oximetry 97.00 % SunJul 19 21:39 :45 EST 2024 Heart Rate 74.00 /min SunJul 19 21:39 :45 EST 2024 Body temperature 97.00 [degF] SunJul 19 21:3 9:45 EST 2024 Respiratory rate 18.00 /min SunJul 19 21:3 9:45 EST 2024 Systolic Blood Pressure 125.00 mm[Hg] [facility] Jul 19 21:34:22 EST 2024 Diastolic Blood Pressure 81.00 mm[Hg] [facility] Jul 19 21:34:22 EST 2024 Heart Rate 74.00 /min Sat Luis 04 21:34 :22 EST 2024 Systolic Blood Pressure 169.00 mm[Hg] SunJul 19 11:14:53 EST 2024 Diastolic Blood Pressure 87.00 mm[Hg] SunJul 19 11:14:53 EST 2024 Heart Rate 80.00 /min SunJul 19 11:14 :53 EST 5 Systolic Blood Pressure 122.00 mm[Hg] SunJul 18 20:53:36 EST 2024 Diastolic Blood Pressure 84.00 mm[Hg] SunJul 18 20:53:36 EST 2024 Heart Rate 70.00 /min SunJul 18 20:53 :36 EST 2024 Systolic Blood Pressure 135.00 mm[Hg] SunJul 18 14:11:19 EST 2024 Diastolic Blood Pressure 76.00 mm[Hg] SunJul 18 14:11:19 EST 2024 Heart Rate 78.00 /min SunJul 18 14:11 :19 EST 2024 Systolic Blood Pressure 130.00 mm[Hg] SunJul 17 20:11:34 EST 2024 Diastolic Blood Pressure 75.00 mm[Hg] SunJul 17 20:11:34 EST 2024 Heart Rate 77.00 /min SunJul 17 20:11 :34 EST 2024 Systolic Blood Pressure 117.00 mm[Hg] SunJul 17 10:37:15 EST 2024 Diastolic Blood Pressure 63.00 mm[Hg] SunJul 17 10:37:15 EST 2024 Heart Rate 64.00 /min SunJul 17 10:37 :15 EST 2024 Systolic Blood Pressure 148.00 mm[Hg] SunJul 16 19:16:23 EST 2024 Diastolic Blood Pressure 80.00 mm[Hg] SunJul 16 19:16:23 EST 2024 Pulse Oximetry 92.00 % SunJul 16 19:16 :23 EST 2024 Heart Rate 54.00 /min SunJul 16 19:16 :23 EST 2024 Respiratory rate 18.00 /min SunJul 16 19:1 6:23 EST 2024 Body temperature 97.20 [degF] SunJul 16 19:1 6:23 EST 2024 Systolic Blood Pressure 148.00 mm[Hg] SunJul 16 18:09:39 EST 2024 Diastolic Blood Pressure 80.00 mm[Hg] SunJul 16 18:09:39 EST 2024 Heart Rate 54.00 /min SunJul 16 18:09 :39 EST 2025 Systolic Blood Pressure 148.00 mm[Hg] SunJul 16 09:10:34 EST 2024 Diastolic Blood Pressure 87.00 mm[Hg] SunJul 16 09:10:34 EST 2024 Heart Rate 92.00 /min SunJul 16 09:10 :34 EST 2024 Systolic Blood Pressure 135.00 mm[Hg] SunJul 15 21:31:10 EST 2023 Diastolic Blood Pressure 66.00 mm[Hg] SunJul 15 21:31:10 EST 2023 Heart Rate 70.00 /min SunJul 15 21:31 :10 EST 2023 Systolic Blood Pressure 126.00 mm[Hg] SunJul 15 12:53:43 EST 2023 Diastolic Blood Pressure 61.00 mm[Hg] SunJul 15 12:53:43 EST 2023 Heart Rate 52.00 /min SunJul 15 12:53 :43 EST 2023 Systolic Blood Pressure 140.00 mm[Hg] SunJul 14 22:23:17 EST 2023 Diastolic Blood Pressure 84.00 mm[Hg] SunJul 14 22:23:17 EST 2023 Heart Rate 62.00 /min SunJul 14 22:23 :17 EST 2023 Systolic Blood Pressure 147.00 mm[Hg] SunJul 14 10:58:38 EST 2023 Diastolic Blood Pressure 82.00 mm[Hg] SunJul 14 10:58:38 EST 2023 Heart Rate 56.00 /min SunJul 14 10:58 :38 EST 2023 Systolic Blood Pressure 140.00 mm[Hg] SunJul 13 21:18:36 EST 2023 Diastolic Blood Pressure 78.00 mm[Hg] SunJul 13 21:18:36 EST 2023 Heart Rate 64.00 /min SunJul 13 21:18 :36 EST 2023 Systolic Blood Pressure 144.00 mm[Hg] SunJul 13 12:43:12 EST 2023 Diastolic Blood Pressure 85.00 mm[Hg] SunJul 13 12:43:12 EST 2023 Heart Rate 56.00 /min SunJul 13 12:43 :12 EST 2023 Systolic Blood Pressure 121.00 mm[Hg] SunJul 12 01:00:00 EST 2023 Diastolic Blood Pressure 69.00 mm[Hg] SunJul 12 01:00:00 EST 2023 Pulse Oximetry 96.00 % SunJul 12 01:00 :00 EST 2023 Heart Rate 64.00 /min SunJul 12 01:00 :00 EST 2023 Body Height 67.00 [in_i] Sat Jul 12 01:00 :00 2023 Body weight 160.20 [lb_av] Sat Jul 12 01:00 :00 2023 Body temperature 97.90 [degF] Sat Jul 12 01:0 0:00 2023 Respiratory rate 16.00 /min Sat Jul 12 01:0 0:00 2023 Reason for Referral
--- OUTSIDE RECORDS SUMMARY | 2025-02-04 12:55 | XMS_ITS ---
Author Name Auto Generated, Auto Generated Organization [facility] Address [address] [place] [address] Phone [phone] Care Team Providers Care Scenery Builder Name Role Phone Jaspal Pate Unavailable Miquel Cervantes Unavailable [phone] Smith Trevino Unavailable [phone] Functional Status No Results Mental Status No Results Allergies and Intolerances Name Onset Date Reaction Severity penicillin (Allergy) SunJul 12 09:43:00 EST 202 4 Encounters Program Name Primary Diagnosis Admission Date/Time Dis charge Date/Time Rehabilitation Clinic SunOct 12 20:00:00 EDT 2024November 24 18:00:00 EDT 2024 Assisted Living Area Alzheimer's disease , unspecified SunJul 11 19:00:00 EST 2023 Immunizations Name Dates Status TST-PPD intradermal SunJul 14 01:00:00 EST 2023 Completed TST-PPD intradermal SunJul 21 01:00:00 EST 2024 Completed Medications Medication Directions Start Date End Date cyanocobalamin (vit B-12) 500 mcg tablet 1 tab TABLET Oral 1 Time Daily Indication: vitamin b12 deficiency [facility] supervision x4 SunJan 02 01:00:00 EDT 2024 donepeziL 5 mg tablet 1 tablet TABLET Or al 1 Time Daily Indication: dementia [facility] supervision x4 SunDec 17 01:00:00 EDT 2024 memantine 28 mg capsule sprinkle,extended release 24hr 1 capsule CAPSULE SPRINKLE, EXTENDED RELEASE 24 HR Oral 1 Time Daily Indication: Dementia [facility] supervision x4 SunDecember 04 01:00:00 EDT 2024 donepeziL 10 mg tablet 1 tablet TABLET O ral 1 Time Daily Indication: dementia [facility] [place] [facility] supervision x4 Carmella December 04 01:00:00 EDT 2024Dec 17 09:58:00 EDT 2024 donepeziL 10 mg tablet 1 tablet TABLET O ral 1 Time Daily Indication: dementia [facility] supervision x4 SunOct 17 11:13:00 EDT 2024November 26 07:56:00 EDT 2024 losartan 50 mg tablet 1 tablet TABLET Or al 1 Time Daily Indication: HTN [facility] supervision x4 SunOct 17 11:14:00 EDT 2024 omeprazole 20 mg capsule,delayed release 1 capsule CAPSULE,DELAYED RELEASE (ENTERIC COATED) Oral 1 Time Daily Indication: acid reflex [facility] [place] [facility] supervision x4 SunOct 17 11:15:00 EDT 2024 terazosin 2 mg capsule 1 capsule CAPSULE Oral 1 Time Daily Indication: HTN [facility] [place] [facility] supervision x4 SunOct 17 11:15:00 EDT 2024 Blood Pressure Kit 1 KIT Other 2 Times Monthly Indication: Vital signs [facility] [place] [facility] to obtain SunOct 17 11:16:00 EDT 2024 aspirin 325 mg tablet,delayed release 1 tablet TABLET, DELAYED RELEASE (ENTERIC COATED) Oral 1 Time Daily Indication: anticoagulant [facility] [facility] supervision x4 SunOct 17 11:17:00 EDT 2024 fluticasone propionate 50 mcg/actuation nasal spray,suspension 1 spray both nostrils SPRAY, SUSPENSION Intranasal 2 Times Daily Indication: allergies [facility] [place] [facility] to remind resident. SunOct 17 11:17:00 EDT 2024 memantine 28 mg capsule sprinkle,extended release 24hr 1 capsule CAPSULE SPRINKLE, EXTENDED RELEASE 24 HR Oral 1 Time Daily Indication: Dementia [facility] [place] [facility] supervision x4 SunOct 17 11:19:00 EDT 2024November 26 07:58:00 EDT 2024 dilTIAZem 30 mg tablet 1 tablet TABLET O ral 2 Times Daily Indication: HTN [facility] supervision x1 x4 SunOct 17 11:19:00 EDT [...] O ral 2 Times Daily Indication: HTN [facility] [facility] supervision x1 x4 SunAug 01 14:45:00 EST [...] Other 2 Times Monthly Indication: Vital signs [facility] [place] [facility] to obtain SunJul 13:00:00 EST 2023Oct 17 11:17:00 EDT 2024 Blood Pressure Cuff 1 EACH Other 2 Times Daily for 7 Days Indication: blood pressure [facility] [place] [facility] to obtain SunJul 13:00:00 EST 2023Jul 20 00:59:00 EST 2024 aspirin 325 mg tablet,delayed release 1 tablet TABLET, DELAYED RELEASE (ENTERIC COATED) Oral 1 Time Daily Indication: anticoagulant [facility] [place] [facility] supervision x4 SunJul 13:00:00 EST 2023Oct 17 11:18:00 EDT 2025 fluticasone propionate 50 mcg/actuation nasal spray,suspension 1 spray both nostrils SPRAY, SUSPENSION Intranasal 2 Times Daily Indication: allergies [facility] [place] [facility] to remind resident. SunJul 13 17:00:00 EST 2023Oct 17 11:19:00 EDT 2024 memantine 28 mg capsule sprinkle,extended release 24hr 1 capsule CAPSULE SPRINKLE, EXTENDED RELEASE 24 HR Oral 1 Time Daily Indication: Dementia [facility] [place] [facility] supervision x4 SunJul 18 01:00:00 EST 2024Oct 17 11:20:00 EDT 2024 dilTIAZem 120 mg tablet 1 tablet TABLET Oral 1 Time Daily Indication: HTN [facility] supervision x4 SunJul 13 01:00:00 EST 2023Aug 01 14:47:00 EST 2024 donepeziL 10 mg tablet 1 tablet TABLET O ral 1 Time Daily Indication: dementia [facility] supervision x4 SunJul 13 01:00:00 EST 2023Oct 17 11:15:00 EDT 2024 losartan 50 mg tablet 1 tablet TABLET Or al 1 Time Daily Indication: HTN [facility] supervision x4 SunJul 13 01:00:00 EST 2023Oct 17 11:15:00 EDT 2024 omeprazole 20 mg capsule,delayed release 1 capsule CAPSULE,DELAYED RELEASE (ENTERIC COATED) Oral 1 Time Daily Indication: acid reflex [facility] [facility] supervision x4 SunJul 13 01:00:00 EST 2023Oct 17 11:16:00 EDT 2024 terazosin 2 mg capsule 1 capsule CAPSULE Oral 1 Time Daily Indication: HTN [facility] [place] [facility] supervision x4 SunJul 13 01:00:00 EST 2023Oct 17 11:16:00 EDT 2024 memantine 10 mg tablet 1 tablet TABLET O ral 2 Times Daily for 5 Days Indication: Dementia [facility] supervision x1, x4 SunJul 13 01:00:00 EST [...] 2023 * End Date: * Text: * [facility] (current) use of aspirin* Code: * Start [...] EST 2024 Systolic Blood Pressure 182.00 mm[Hg] [facility] Aug 02 18:47:16 EST 2024 Diastolic Blood Pressure 102.00 mm[Hg] SunAug 02 18:47:16 EST 2024 Pulse Oximetry 97.00 % [facility] Aug 02 18:47 :16 EST 2024 Body weight 155.00 [lb_av] SunAug 02 18:47 :16 EST 2024 Heart Rate 55.00 /min SunAug 02 18:47 :16 EST 2024 Body temperature 98.10 [degF] [facility] Aug 02 18:4 7:16 EST 2024 Respiratory rate 18.00 /min [facility] Aug 02 18:4 7:16 EST 2024 Systolic [...] EST 2024 Systolic Blood Pressure 125.00 mm[Hg] [facility] Jul 19 21:34:22 EST 2024 Diastolic Blood Pressure 81.00 mm[Hg] [facility] Jul 19 21:34:22 EST 2024 Heart Rate [...]
--- OUTSIDE RECORDS SUMMARY | 2025-02-04 12:55 | XMS_ITS | Encounter Summary ---
Author Organization [facility] Address 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
--- OUTSIDE RECORDS SUMMARY | 2025-02-04 12:55 | XMS_ITS | Clinical Summary ---
Author Organization [facility] Address [address] [place] [address] Care Team Providers Care Sports Centre Manager Name Role Phone Glory Boston MD Primary Care Provider [phone] Source Comments [facility],non-owned Affiliates and Associated Physician Practices is amultiple site organization consisting of ambulatory clinics and hospital sitesin [place], [place], [place] and [place]. This disclosure is being madepursuant to the Care Everywhere program and may not contain all information available regarding this patient. 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 Gender Identity Not on file Sexual Orientation Not on file Occupation Industry Job Start Date Job End Date retired Not on file Not on file Not on file Last Filed Vital Signs Vital Sign Reading Time Taken Comments Blood Pressure 145/78 07/15/2018 9:37 PM CLARIFYING PLANT OPERATOR Pulse 71 07/15/2018 9:37 PM CLARIFYING PLANT OPERATOR Temperature 36.7 C (98.1 F) 07/15/2018 12:48 PM CLARIFYING PLANT OPERATOR Respiratory Rate 16 07/15/2018 9:37 PM CLARIFYING PLANT OPERATOR Oxygen Saturation 96% 07/15/2018 9:37 PM CLARIFYING PLANT OPERATOR Inhaled Oxygen Concentration - - Weight 65.8 kg (145 lb) 01/23/2018 12:03 PM CDT Height 175.3 cm (5' 9) 01/23/2018 12:03 PM CDT Body Mass Index [...] season) 2024 DEPRESSION SCREENING 07/16/2024 INFLUENZA VACCINE (#1) 2025 HEPATITIS B VACCINE Aged Out No [...] age to complete this topic Insurance MEDICARE [facility] Advance Directives * Full Code (Latest Code Status on File) Date Activated Date Inactivated Comments 06/21/2016 11:45 AM 06/23/2016 7:34 PM * Full Code Date Activated Date Inactivated Comments 06/21/2016 11:36 AM 06/21/2016 11:45 AM Care Teams Sports Centre Manager Relationship Specialty Start Date End Date Glory Boston MD PCP - General Internal Medicine 06/21/16
[2025-02-04 13:03] LABS: Thyroid Stimulating Hormone 1.490 uIU/mL (0.465-4.680)
[2025-02-04 15:24] LABS: Troponin I 2.240 ng/mL (0.000-0.034)
--- NOTE | 2025-02-04 15:32 | PC.NURSE ---
This patient, Sincere Roberson, was admitted to IMU Room 205-02 at 1502. Patient/family oriented to hospital policies and general routines including ID bracelet, bed and alarms, visiting hours, pain management, procedures, bathroom and other care routines, personal items, smoking policy, room service/diet, and visiting hours. Information on how to activate the Rapid Response Team has been discussed. Patient/Family are encouraged to report perceived risks to care and to ask questions if they do not understand what they are told or what they should do.
--- NOTE | 2025-02-04 15:33 | P.HP_ITS ---
H&P: HPI History of Present Illness Date/Time: 02/04/25 15:33 Chief Complaint: Chest pain Narrative: 89-year-old male with past medical history of Alzheimer's, prostate cancer, hypertension hyperlipidemia presents the hospital from a alf chest pain. Due to patient's dementia HPI is limited. Patient is only oriented to name, patient keeps pointing/grabbing his chest. Patient's family is at bedside. Family states the patient has much more confused than he normally is. Lab work shows sodium of 136, glucose of 126, troponin of 0.29 to and 2.240 cardiology has been consulted and patient has been started on heparin drip. EKG shows atrial flutter/tachycardia with RVR 123, UA pending Review of Systems Review of Systems: ROS unobtainable: Yes unobtainable due to mental status PMFSH Past Medical History Medical History Dementia of the Alzheimer's type Gastric ulcer IBS (irritable bowel syndrome) Heart disease Anxiety Seasonal allergies Prostate cancer (2008) Status post radiation. Hyperlipidemia Hypertension Surgical History Surgical History History of cholecystectomy History of craniotomy (1980) Resection benign cyst. Family History Family History Mother Depression Cerebrovascular accident Thyroid disorder Sibling Asthma Heart disease Other Hypertension Social History Social History Social History: Surrogate medical decision maker: Landon Roberson (son). Code status: Full code. Smoking status: Never smoker Alcohol intake: current Substance use: never Do You Feel Safe in your Home?: Yes Lack of Transportation: No Lack of Food: Never True Current Housing: I Have Housing Concerned About Future Housing: No Difficulty Paying Gas/Electric Bills: No Difficulty Paying for Meds: No Currently Unemployed: No Education: Decline to Answer Difficulty w/ Childcare or Family Care: No Additional living arrangements comments: Lives in [place]. lives at [place]. Son Landon lives next door. Additional occupation/education comments: Retired from [employer]. Spiritual care concerns: No Meds Home Medications and Allergies Home Medications ?Medication ?Instructions ?Recorded ?Confirmed ?Type losartan 50 mg tablet 50 mg PO DAILY #90 tabs 11/05/23 02/04/25 Rx fluticasone propionate 50 See Rx Instructions .Route 11/06/23 02/04/25 Rx mcg/actuation nasal .COMPLEX #48 grams spray,suspension donepezil 5 mg tablet (Aricept) 5 mg PO QHS #90 tabs 12/16/24 02/04/25 Rx aspirin 325 mg tablet,delayed 325 mg PO HS 02/04/25 02/04/25 History release cyanocobalamin (vitamin B-12) 500 500 mcg PO HS 02/04/25 02/04/25 History mcg tablet memantine 28 mg capsule 28 mg PO HS 02/04/25 02/04/25 History sprinkle,extended release 24hr omeprazole 20 mg capsule,delayed 20 mg PO HS 02/04/25 02/04/25 History release terazosin 2 mg capsule 2 mg PO HS 02/04/25 02/04/25 History Allergies Allergy/AdvReac Type Severity Reaction Status Date / Time Penicillins Allergy Mild Unknown Verified 02/04/25 11:41 Vital Signs Vital Signs - 24 hr 02/04/25 11:11 02/04/25 11:36 02/04/25 11:36 Pulse Rate 123 H 137 H 137 H Respiratory Rate 19 18 Blood Pressure 121/89 126/92 H Pulse Oximetry 97 95 Oxygen Delivery Room Air 02/04/25 11:40 02/04/25 11:45 02/04/25 12:18 Pulse Rate 139 H 116 H 58 L Respiratory Rate 15 Blood Pressure 99/66 L Pulse Oximetry 96 Oxygen Delivery 02/04/25 12:51 02/04/25 13:28 02/04/25 13:56 Pulse Rate 57 L 56 L 54 L Respiratory Rate 18 22 H Blood Pressure 102/68 121/83 Pulse Oximetry 93 99 Oxygen Delivery 02/04/25 15:02 Pulse Rate 59 L Respiratory Rate 18 Blood Pressure Pulse Oximetry 100 Oxygen Delivery Exam Narrative: General: well appearing, appears stated age. HEENT: normocephalic, atraumatic. Mucous membranes moist. EOMI, PERRLA, bilateral sclera anicteric, no conjunctival injection. Neck supple without JVD, lymphadenopathy, or bruit. Respiratory: clear to ascultation bilaterally. No rales/rhonic/wheezes. Cardiovascular: Regular rate and rhythm, normal S1-S2 upon ascultation. No murmurs, rubs, or clicks. PMI is nondisplaced, capillary refill less than 3 second. Abdomen: Soft, round, no pulsatile masses, nondistended and nontender. No rebound, no guarding. No CVA tenderness, no hepatosplenomegaly. Bowel sounds present to all four quadrants. No high pitch or tinkling sounds, resonant to percussion. Extremities: No cyanosis, clubbing, or edema present. Pulses are palpable 2/2. Active ROM to all four extremities. Neuro: Alert and orientated x 1. PERRLA. Cranial nerves 2-12 intact without focal deficit. Skin: Warm, dry, and intact, without rash, erythema, or lesion. Psych: pleasant, cooperative, normal speech, normal affect, no hallucinations, no dysarthia H&P: Results Labs Labs: Short CBC 02/04/25 Range/Units 11:42 WBC 6.9 (4.5-10.0) K/mm3 Hgb 14.8 (14.0-18.0) g/dL Hct 44.4 (42.0-52.0) % Plt Count 175 (150-375) k/mm3 BMP 02/04/25 11:42 Sodium 136 L Potassium 4.1 Chloride 103 Carbon Dioxide 24 BUN 17 Creatinine 0.92 Glucose 126 H Calcium 9.9 Cardiac Enzymes 02/04/25 02/04/25 Range/Units 11:42 14:37 Troponin I 0.292 H* 2.240 H* D (0.000-0.034) ng/mL Liver Function 02/04/25 Range/Units 11:42 Total Bilirubin 0.8 (0.2-1.3) mg/dL AST 30 (17-59) U/L ALT 18 (6-50) U/L Alkaline Phosphatase 42 (38-126) U/L Albumin 4.1 (3.5-5.1) g/dL Assessment and Plan Assessment and plan (1) NSTEMI (non-ST elevated myocardial infarction): Code(s): I21.4 - Non-ST elevation (NSTEMI) myocardial infarction Status: Acute Assessment and Plan: Cardiology consulted Heparin drip per protocol NPO midnight Trend troponins EKG p.r.n. Nitro for chest pain (2) Atrial fibrillation with rapid ventricular response: Code(s): I48.91 - Unspecified atrial fibrillation Status: Acute Assessment and Plan: Resolved in emergency room now bradycardic (3) Hypertension: Code(s): I10 - Essential (primary) hypertension Status: Acute Assessment and Plan: Not on medication (4) Dementia of the Alzheimer's type: Code(s): G30.9 - Alzheimer's disease, unspecified; F02.80 - Dementia in other diseases classified elsewhere, unspecified severity, without behavioral disturbance, psychotic disturbance, mood disturbance, and anxiety Status: Acute Assessment and Plan: Aricept to 5 mg a day and continue with the memantine XR 28 mg a day. (5) Hyperlipidemia: Code(s): E78.5 - Hyperlipidemia, unspecified Status: Acute Assessment and Plan: Continue losartan (6) Altered mental status: Code(s): R41.82 - Altered mental status, unspecified Status: Acute Assessment and Plan: Acute illness versus infection versus other Patient is decreased from baseline UA pending Quality VTE Prophylaxis VTE prophylaxis: mechanical ordered and pharmacologic ordered Hospitalist MIPS Advance Care Plan I have confirmed that the patient's Advanced Care Plan is present, code status is documented, or surrogate decision maker is listed in patient medical record.: Yes Medication Reconciliation I have utilized all available resources to obtain, update and review the patients current medications (includes all prescriptions, OTC, herbals, cannabis, and nutritional supplements).: Yes
--- NOTE | 2025-02-04 15:37 | ECHO_ITS ---
Patient Info Name: Sincere Roberson Age: 89 years : 1935 Gender: Male Ht: 69 in Wt: 156 lbs BSA: 1.86 m2 HR: 49 bpm BP: 121 / 83 mmHg Technical Quality: Fair Exam Date: 02/04/2025 4:17 PM Patient Status: I Admit Date: 02/04/2025 Exam Type: CA echo limited w contrast Limited two-dimensional transthoracic echocardiogram is performed with contrast. Staff Referring Physician: Juan rAaujo MD Rn Placement: Leonor Ellison Attending Provider: Allyson Brown MD Contrast/Agitated Saline Contrast/Ag. Saline: Definity Amount: 8.00 ml Administered By: Leonor Ellison Existing IV Access: Yes IV Access Condition: patent with no signs of infiltration Summary 1. Definity contrast administered improved wall motion interpretation. 2. Left ventricular chamber dimension is normal. 3. Left ventricular systolic function is normal, estimated at 55-60. 4. The left ventricular diastolic function is grade I diastolic dysfunction. 5. Left atrial chamber dimension is moderately enlarged. 6. The aortic valve is not well visualized. Cannot determine number of aortic valve leaflets. 7. There is mild aortic valve sclerosis. 8. There is mild aortic valve regurgitation. 9. There is mild mitral valve regurgitation. 10. No pulmonary hypertension, estimated pulmonary arterial systolic pressure is 32 mmHg. Left Ventricle Left ventricular chamber dimension is normal. Left ventricular systolic function is normal, estimated at 55-60. The left ventricular diastolic function is grade I diastolic dysfunction. Definity contrast administered improved wall motion interpretation. Tissue doppler was not performed. Right Ventricle Right ventricular chamber dimension is normal. Right ventricular systolic function is normal. Left Atria Left atrial chamber dimension is moderately enlarged. Right Atria Right atrial chamber dimension is normal. Aortic Valve The aortic valve is not well visualized. Cannot determine number of aortic valve leaflets. There is mild aortic valve sclerosis. There is no aortic valve stenosis. There is mild aortic valve regurgitation. Pulmonic Valve There is no pulmonic regurgitation. Mitral Valve There is no mitral valve stenosis. There is mild mitral valve regurgitation. Tricuspid Valve There is no tricuspid valve regurgitation. No pulmonary hypertension, estimated pulmonary arterial systolic pressure is 32 mmHg. Pericardium/Pleural There is no pericardial effusion. Inferior Vena Cava Normal inferior vena cava with >50% collapse upon inspiration consistent with normal right atrial pressure, 5 mmHg. Aorta The aortic root size at the sinus of Valsalva is normal. Left Ventricular Outflow Tract Name Value Normal LVOT 2D LVOT Diameter 2.2 cm LVOT Doppler LVOT Peak Velocity 70 cm/s LVOT Peak Gradient 2 mmHg LVOT Mean Gradient 1 mmHg LVOT VTI 15 cm LVOT VTI/AV VTI Ratio 0.7 LVOT Stroke Volume 58 ml LVOT CO 2.6 l/min LVOT CI 1.4 l/min/m2 Mitral Valve Name Value Normal MV Regurgitation Doppler MR Peak Gradient 77 mmHg Tricuspid Valve Name Value Normal TV Regurgitation Doppler TR Peak Velocity 261 cm/s TR Peak Gradient 24 mmHg Estimated PAP/RSVP RA Pressure 5 mmHg <=5 PA Systolic Pressure 32 mmHg <36 RV Systolic Pressure 32 mmHg <36 Aortic Valve Name Value Normal AV Doppler AV Peak Velocity 92 cm/s AV Peak Gradient 3 mmHg AV Mean Gradient 2 mmHg AV VTI 21 cm AV Area (Cont Eq VTI) 2.7 cm2 >=3.0 AV Area (Cont Eq Kevin) 2.9 cm2 AV DI (Kevin) 0.77 AV Regurgitation 2D LVOT Area 3.8 cm2 Ventricles Name Value Normal LV Dimensions 2D/MM IVS Diastolic Thickness (2D) 1.2 cm 0.6-1.0 LVID Diastole (2D) 4.2 cm 4.2-5.8 LVIW Diastolic Thickness (2D) 1.1 cm 0.6-1.0 LVID Systole (2D) 2.9 cm 2.5-4.0 LVOT Diameter 2.2 cm LV Mass (2D Cubed) 163.39 g 88.00-224.00 LV Mass Index (2D Cubed) 88 g/m2 49-115 Relative Wall Thickness (2D) 0.51 <=0.42 LV Fractional Shortening/Ejection Fraction 2D/MM LV Fractional Shortening (2D) 30 % 25-43 LV EF (2D Teichholz) 57 % LV Diastolic Volume (4C MOD) 124 ml LV EF (4C MOD) 48 % LV Diastolic Volume (2C MOD) 130 ml LV EF (2C MOD) 38 % LV Diastolic Volume (BP MOD) 129 ml 62-150 LV Diastolic Volume Index (BP MOD) 69 ml/m2 34-74 LV Systolic Volume (BP MOD) 74 ml 21-61 LV Systolic Volume Index (BP MOD) 40 ml/m2 11-31 LV EF (BP MOD) 43 % 52-72 LV Diastolic Length (4C) 8.2 cm LV Systolic Length (4C) 7.0 cm LV Stroke Volume (4C MOD) 59 ml Report Signatures
[2025-02-04 16:55] LABS: Cholesterol 259 mg/dL (0-200); HDL Direct 48 mg/dL; Triglycerides 59 mg/dL (<150)
[2025-02-04] MEDS: PERFLUTREN LIPID MICROSPHERES 1.5 ML VIAL DILUTED TO 10 ML TOTAL VOLUME IV PUSH (16:55)
--- NOTE | 2025-02-04 17:05 | IVDEFINITY ---
Prior to administration of IV Definity the patient was educated on the risks and benefits of the imaging enhancing agent including potential adverse side effects. The patient verbalized understanding. Allergies were verified. No exclusion criteria were identified and at least one of the following inclusion criteria were met: 1) physician request, 2) patient technically difficult to image (per the [place] [employer]chocardi[employer] guidelines of two or more segments not discernable within the apical view), or 3) questionable left ventricular function. ?
[2025-02-04] MEDS: DOCUSATE SODIUM 100 MG CAPSULE PO (18:09)
[2025-02-04 18:37] LABS: Partial Thromboplastin Time 120.3 Seconds (22.3-36.8)
[2025-02-04 18:48] LABS: Troponin I 6.920 ng/mL (0.000-0.034)
[2025-02-04] MEDS: MELATONIN 3 MG TABLET PO (22:25)
[2025-02-04] MEDS: ASPIRIN 325 MG ENTERIC TABLET PO (22:25)
[2025-02-05] VITALS (15 sets, daily range): BP systolic 111–170; BP diastolic 68–95; PULSE 45–69; RESP 15–18; TEMP 36.4–36.9; O2SAT 93–98
[2025-02-05 01:12] LABS: Partial Thromboplastin Time 91.0 Seconds (22.3-36.8)
[2025-02-05 07:18] LABS: Hematocrit 41.7 % (42.0-52.0); Hemoglobin 13.9 g/dL (14.0-18.0); Immature Granulocyte Percent A 0.4 % (0-0.5); Lymphocytes Absolute Auto 1.95 K/mm3 (0.9-3.2); Mean Corpuscular HGB Conc 33.3 g/dl (32-36); Mean Corpuscular Hemoglobin 33.3 pg (26-34); Mean Corpuscular Volume 99.8 fl (80-100); Nucleated Red Blood Cells Absolute Auto 0.000 K/mm3 (0.0-0.012); Nucleated Red Blood Cells Perc 0.0 % (0.0-0.2); Platelet Count Result 180 k/mm3 (150-375); Red Blood Count 4.18 M/mm3 (4.6-6.20); White Blood Count 4.8 K/mm3 (4.5-10.0)
[2025-02-05 07:33] LABS: Partial Thromboplastin Time 88.2 Seconds (22.3-36.8)
[2025-02-05 07:40] LABS: Anion Gap 6 mmol/L (4-12); Blood Urea Nitrogen 18 mg/dL (9-20); Calcium 9.6 mg/dL (8.4-10.2); Carbon Dioxide 27 mmol/L (22-30); Chloride 103 mmol/L (98-107); Estimated CRCL calculation 47 ml/min; Estimated Glomerular Filt Rate > 60; Glucose 94 mg/dL (65-110); Potassium 4.2 mmol/L (3.4-5.0); Sodium 136 mmol/L (137-145)
[2025-02-05] MEDS: ASPIRIN 81 MG CHEWABLE TABLET PO (09:27)
[2025-02-05] MEDS: DOCUSATE SODIUM 100 MG CAPSULE PO ×2 (09:27→17:38)
[2025-02-05] MEDS: FLUTICASONE PROPIONATE 0.05% NA SPR 16 GM BTL (*BKC) 1 SPRAY NASAL ×2 (09:28→19:57)
[2025-02-05] MEDS: LOSARTAN POTASSIUM 50 MG TABLET PO (09:28)
--- NOTE | 2025-02-05 10:05 | ECG_ITS ---
Test Date: 2025-02-05 10:16:09 Measurements Intervals [place] Rate: 46 P: 94 SC: 163 QRS: -13 QRSD: 97 T: -15 QT: 473 QTc: 414 Interpretive Statements SINUS BRADYCARDIA POSSIBLE RIGHT VENTRICULAR CONDUCTION DELAY [RSR (QR) IN V1/V2] LEFT VENTRICULAR HYPERTROPHY AND ST-T CHANGE [VOLTAGE CRITERIA PLUS ST/T ABNORMALITY] Compared to ECG 02/04/2025 12:49:15 Sinus arrhythmia no longer present ST (T wave) deviation still present Electronically Signed On 02-06-2025 15:47:15 CDT by Gregor Posey M.D.
--- NOTE | 2025-02-05 11:49 | P.CONCA_ITS ---
Assessment and Plan Assessment and plan (1) NSTEMI (non-ST elevated myocardial infarction): Code(s): I21.4 - Non-ST elevation (NSTEMI) myocardial infarction Status: Acute (2) Paroxysmal atrial flutter: Code(s): I48.92 - Unspecified atrial flutter Status: Acute (3) Hyperlipidemia: Code(s): E78.5 - Hyperlipidemia, unspecified Status: Acute Plan 89-year-old man with Alzheimer's dementia, hypertension, and hyperlipidemia presented with chest discomfort Non ST-elevation [place] -given his advanced Alzheimer's dementia, I have attempted to discuss with him his overall clinical course however does not appear that he is competent to make his own decisions -as such I have reach out to his son Landon and left a voicemail and will attempt to reach him via phone again to discuss the clinical course and determined a plan -in the meantime will continue to trend the troponin and also continue heparin drip as well as aspirin 81 mg p.o. daily (holding 325mg in the evening) -he is also bradycardic presumably secondary to his Alzheimer's drives and does not tolerant to addition of beta-miguelina at this time -echocardiogram shows preserved biventricular size and systolic function without significant valvular abnormalities -start atorvastatin 40mg qhs Paroxysmal atrial fibrillation -it is unknown whether this is new or an old diagnosis -given his advanced Alzheimer's dementia and unknown environment at home, difficult at this time the determined if he should be on oral anticoagulation upon discharge Hypertension -on losartan 50 mg p.o. daily History of Present Illness History of Present Illness Consult date/time: 02/05/25 11:49 Requesting physician: Gaby Gabriel APRN Reason For Visit: Afib With RVR/ NSTEMI Narrative: 89-year-old man with Alzheimer's dementia, hypertension, and hyperlipidemia presented with chest discomfort. Today as I discussed with him the reasons for his current admission, he appears confused and redirects the conversation to things that he can remember in the past. Currently he denies any chest discomfort or shortness of breath. He is unable to verify the current location nor the reason for his current stay in the hospital. He is also unable to verify where he came from and where he typically lives. He redirects the conversation to a time when he fell on his head. He also admits throughout the conversation that his memory is not what it used to be and he has great difficulty. Review of Systems 2 Cardiovascular: Cardiovascular: Reports as per HPI Respiratory: Respiratory: Reports as per HPI [facility] Past Medical History Medical History Dementia of the Alzheimer's type Gastric ulcer IBS (irritable bowel syndrome) Heart disease Anxiety Seasonal allergies Prostate cancer (2008) Status post radiation. Hyperlipidemia Hypertension Surgical History Surgical History History of cholecystectomy History of craniotomy (1980) Resection benign cyst. Family History Family History Mother Depression Cerebrovascular accident Thyroid disorder Sibling Asthma Heart disease Other Hypertension Social History Social History Social History: Surrogate medical decision maker: Landon Roberson (son). Code status: Full code. Smoking status: Never smoker Alcohol intake: current Substance use: never Do You Feel Safe in your Home?: Yes Lack of Transportation: No Lack of Food: Never True Current Housing: I Have Housing Concerned About Future Housing: No Difficulty Paying Gas/Electric Bills: No Difficulty Paying for Meds: No Currently Unemployed: No Education: Decline to Answer Difficulty w/ Childcare or Family Care: No Additional living arrangements comments: Lives in [place]. lives at [address] [place]. Son Landon lives next door. Additional occupation/education comments: Retired from [employer]. Spiritual care concerns: No Meds Home Medications and Allergies Home Medications ?Medication ?Instructions ?Recorded ?Confirmed ?Type losartan 50 mg tablet 50 mg PO DAILY #90 tabs 11/05/23 02/04/25 Rx fluticasone propionate 50 See Rx Instructions .Route 11/06/23 02/04/25 Rx mcg/actuation nasal .COMPLEX #48 grams spray,suspension donepezil 5 mg tablet (Aricept) 5 mg PO QHS #90 tabs 12/16/24 02/04/25 Rx aspirin 325 mg tablet,delayed 325 mg PO HS 02/04/25 02/04/25 History release cyanocobalamin (vitamin B-12) 500 500 mcg PO HS 02/04/25 02/04/25 History mcg tablet memantine 28 mg capsule 28 mg PO HS 02/04/25 02/04/25 History sprinkle,extended release 24hr omeprazole 20 mg capsule,delayed 20 mg PO 02/04/25 02/04/25 History release terazosin 2 mg capsule 2 mg PO 02/04/25 02/04/25 History Allergies Allergy/AdvReac Type Severity Reaction Status Date / Time Penicillins Allergy Mild Unknown Verified 02/04/25 11:41 Vital Signs Vital Signs - 24 hr 02/04/25 12:18 02/04/25 12:51 02/04/25 13:28 Temperature Pulse Rate 58 L 57 L 56 L Respiratory Rate 15 18 Blood Pressure 99/66 L 102/68 Pulse Oximetry 96 93 Oxygen Delivery 02/04/25 13:56 02/04/25 15:02 02/04/25 15:10 Temperature 36.4 C Pulse Rate 54 L 59 L 52 L Respiratory Rate 22 H 18 16 Blood Pressure 121/83 133/85 Pulse Oximetry 99 100 100 Oxygen Delivery 02/04/25 16:00 02/04/25 16:00 02/04/25 16:00 Temperature 36.8 C Pulse Rate 89 49 L Respiratory Rate 20 Blood Pressure 119/48 L Pulse Oximetry 93 Oxygen Delivery Room Air 02/04/25 18:00 02/04/25 19:55 02/04/25 20:00 Temperature 36.6 C Pulse Rate 52 L 50 L Respiratory Rate 18 Blood Pressure 148/79 H Pulse Oximetry 100 Oxygen Delivery Room Air 02/04/25 20:00 02/04/25 22:00 02/04/25 23:42 Temperature 36.8 C Pulse Rate 49 L 54 L 41 L Respiratory Rate 18 Blood Pressure 138/78 Pulse Oximetry 96 Oxygen Delivery 02/05/25 00:00 02/05/25 00:00 02/05/25 02:00 Temperature Pulse Rate 51 L 50 L Respiratory Rate Blood Pressure Pulse Oximetry Oxygen Delivery Room Air 02/05/25 03:31 02/05/25 03:59 02/05/25 04:00 Temperature 36.8 C Pulse Rate 45 L 49 L Respiratory Rate 15 Blood Pressure 165/85 H Pulse Oximetry 94 Oxygen Delivery Room Air 02/05/25 06:00 02/05/25 08:00 02/05/25 08:00 Temperature 36.4 C L Pulse Rate 46 L 46 L 65 Respiratory Rate 18 Blood Pressure 155/75 H Pulse Oximetry 98 Oxygen Delivery 02/05/25 08:00 Temperature Pulse Rate Respiratory Rate Blood Pressure Pulse Oximetry Oxygen Delivery Room Air Exam 2 Const: General: comfortable HENMT: Mouth: Yes moist mucous membranes Eyes: EOM: EOMs intact bilaterally Neck: Neck: no JVD Resp: Effort & Inspection: normal respiratory effort Auscultation: clear to auscultation bilaterally Cardio: Rate: bradycardic Rhythm: regular rhythm GI: GI Palp: Yes Soft to palpation Extrem: General: no pedal edema Results Labs and Meds 02/05/25 06:59 02/05/25 06:59 Lab results: Cardiac Enzymes 02/04/25 02/04/25 02/04/25 Range/Units 11:42 14:37 18:11 AST 30 (17-59) U/L Troponin I 0.292 H* 2.240 H* D 6.920 H* D (0.000-0.034) ng/mL Coagulation 02/04/25 02/04/25 02/05/25 Range/Units 11:42 18:11 00:48 PT 14.0 (11.1-14.7) Seconds APTT 24.2 120.3 H 91.0 H (22.3-36.8) Seconds 02/05/25 Range/Units 06:59 PT (11.1-14.7) Seconds APTT 88.2 H (22.3-36.8) Seconds Lipids 02/04/25 Range/Units 16:19 Triglycerides 59 (<150) mg/dL Cholesterol 259 H (0-200) mg/dL CBC 02/04/25 02/05/25 Range/Units 11:42 06:59 WBC 6.9 4.8 (4.5-10.0) K/mm3 RBC 4.43 L 4.18 L (4.6-6.20) M/mm3 Hgb 14.8 13.9 L (14.0-18.0) g/dL Hct 44.4 41.7 L (42.0-52.0) % Plt Count 175 180 (150-375) k/mm3 Lymph # (Auto) 1.01 1.95 (0.9-3.2) K/mm3 [place] # (Auto) 0.3 0.3 (0.1-0.6) K/mm3 Eos # (Auto) 0.0 0.1 (0-0.3) K/mm3 Baso # (Auto) 0.0 0.0 (0.0-0.1) K/mm3 Comprehensive Metabolic Panel 02/04/25 02/05/25 Range/Units 11:42 06:59 Sodium 136 L 136 L (137-145) mmol/L Potassium 4.1 4.2 (3.4-5.0) mmol/L Chloride 103 103 (98-107) mmol/L Carbon Dioxide 24 27 (22-30) mmol/L BUN 17 18 (9-20) mg/dL Creatinine 0.92 0.94 (0.7-1.3) mg/dL Glucose 126 H 94 (65-110) mg/dL Calcium 9.9 9.6 (8.4-10.2) mg/dL AST 30 (17-59) U/L ALT 18 (6-50) U/L Alkaline Phosphatase 42 (38-126) U/L Total Protein 7.0 (6.3-8.2) g/dL Albumin 4.1 (3.5-5.1) g/dL Intake and Output 02/04/25 02/05/25 02/05/25 23:59 07:59 15:59 Intake Total 1018.5 300 107.2 Output Total 150 Balance 1018.5 150 107.2 Intake: IV 58.5 107.2 Heparin Sod/D5w 100 Units/ml 25 58.5 107.2 ,000 units In 250 ml @ 800 UNITS/HR 8 mls/hr IV CONT .Q24H [facility] Rx#:[id number] Oral 960 300 Output: Urine 150 Other: # Unmeasured Voids 1 Patient Weight 02/05/25 23:59 Weight 67.5 kg
[2025-02-05 12:47] LABS: Add Urine Microscopic? YES; Appearance Urine Clear (Clear); Glucose Urine UA Negative (Negative); Leukocyte Esterase Ur Trace LEU/UL (Negative); Nitrate Urine Negative (Negative); Non Pathogenic Casts 0-2; Specific Grav Ur 1.021 (1.001-1.035)
[2025-02-05 14:43] LABS: Troponin I 4.300 ng/mL (0.000-0.034)
--- NOTE | 2025-02-05 18:34 | P.PNIM_ITS ---
Progress Note: A&P Assessment and Plan (1) NSTEMI (non-ST elevated myocardial infarction): Code(s): I21.4 - Non-ST elevation (NSTEMI) myocardial infarction Status: Acute Assessment and Plan: Cardiology consulted Heparin drip per protocol NPO midnight Trend troponins EKG p.r.n. Nitro for chest pain (2) Atrial fibrillation with rapid ventricular response: Code(s): I48.91 - Unspecified atrial fibrillation Status: Acute Assessment and Plan: Resolved in emergency room now bradycardic (3) Hypertension: Code(s): I10 - Essential (primary) hypertension Status: Acute Assessment and Plan: Not on medication (4) Dementia of the Alzheimer's type: Code(s): G30.9 - Alzheimer's disease, unspecified; F02.80 - Dementia in other diseases classified elsewhere, unspecified severity, without behavioral disturbance, psychotic disturbance, mood disturbance, and anxiety Status: Acute Assessment and Plan: Aricept to 5 mg a day and continue with the memantine XR 28 mg a day. (5) Hyperlipidemia: Code(s): E78.5 - Hyperlipidemia, unspecified Status: Acute Assessment and Plan: Continue losartan (6) Altered mental status: Code(s): R41.82 - Altered mental status, unspecified Status: Acute Assessment and Plan: Acute illness versus infection versus other Patient is decreased from baseline UA pending Plan patient presented with CP, and has elevated tropes and climbing, patient is 89 y/o with dementia and poor historian, further evaluate will do cardiac ECHO. patient will be seen by industrial safety and health specialist and further recommendation to follow. Subjective Date/time seen: 02/05/25 18:34 Interval history: H&P-Narrative: 89-year-old male with past medical history of Alzheimer's, prostate cancer, hypertension hyperlipidemia presents the hospital from a correction chest pain. Due to patient's dementia HPI is limited. Patient is only oriented to name, patient keeps pointing/grabbing his chest. Patient's family is at bedside. Family states the patient has much more confused than he normally is. Lab work shows sodium of 136, glucose of 126, troponin of 0.29 to and 2.240 cardiology has been consulted and patient has been started on heparin drip. EKG shows atrial flutter/tachycardia with RVR 123, UA pending patient presented with CP, and has elevated tropes and climbing, patient is 89 y/o with dementia and poor historian, further evaluate will do cardiac ECHO. patient will be seen by industrial safety and health specialist and further recommendation to follow. Review of Systems Review of Systems: ROS unobtainable: Yes unobtainable due to mental status Exam Narrative: Elderly frail Patient is comfortable, NAD HEENT: eyes are clear and none icteric LUNGS:CTA HEART: RR S1S2 ABD: BS+, Soft and nontender Lower extremities: no edema SKIN: nonjaundiced Neuro: grossly intact. Dementia Objective Data Vital Signs Vital Signs: Vital Signs - 24 hr 02/04/25 19:55 02/04/25 20:00 02/04/25 20:00 Temperature 36.6 C Pulse Rate 50 L 49 L Respiratory Rate 18 Blood Pressure 148/79 H Pulse Oximetry 100 Oxygen Delivery Room Air 02/04/25 22:00 02/04/25 23:42 02/05/25 00:00 Temperature 36.8 C Pulse Rate 54 L 41 L Respiratory Rate 18 Blood Pressure 138/78 Pulse Oximetry 96 Oxygen Delivery Room Air 02/05/25 00:00 02/05/25 02:00 02/05/25 03:31 Temperature Pulse Rate 51 L 50 L Respiratory Rate Blood Pressure Pulse Oximetry Oxygen Delivery Room Air 02/05/25 03:59 02/05/25 04:00 02/05/25 06:00 Temperature 36.8 C Pulse Rate 45 L 49 L 46 L Respiratory Rate 15 Blood Pressure 165/85 H Pulse Oximetry 94 Oxygen Delivery 02/05/25 08:00 02/05/25 08:00 02/05/25 08:00 Temperature 36.4 C L Pulse Rate 46 L 65 Respiratory Rate 18 Blood Pressure 155/75 H Pulse Oximetry 98 Oxygen Delivery Room Air 02/05/25 10:00 02/05/25 12:00 02/05/25 12:00 Temperature Pulse Rate 52 L 49 L Respiratory Rate Blood Pressure Pulse Oximetry Oxygen Delivery Room Air 02/05/25 12:00 02/05/25 14:00 02/05/25 16:00 Temperature 36.4 C L Pulse Rate 46 L 56 L 55 L Respiratory Rate 18 Blood Pressure 155/76 H Pulse Oximetry 98 Oxygen Delivery 02/05/25 16:00 02/05/25 16:00 02/05/25 18:00 Temperature 36.9 C Pulse Rate 50 L 69 Respiratory Rate 16 Blood Pressure 170/95 H Pulse Oximetry 97 Oxygen Delivery Room Air Intake/Output Intake/Output: Intake & Output 02/02/25 02/03/25 02/04/25 02/05/25 23:59 23:59 23:59 23:59 Intake Total 1018.5 407.2 Output Total 150 Balance 1018.5 257.2 Meds/Results Medications: Active Medications Generic Name Dose Route Start Last Admin Trade Name Freq PRN Reason Stop Dose Admin Acetaminophen 650 mg 02/04/25 13:38 Acetaminophen 325 Mg Tablet PO Q4H PRN Mild Pain (1-3) or Fever Hydrocodone Bitart/Acetaminophen 1 tab 02/04/25 15:37 Hydrocodone/Acetaminophen (*Crx) 5-325 Mg Tablet PO Q4H PRN Moderate Pain (4-6) Aspirin 81 mg 02/05/25 08:00 02/05/25 09:27 Aspirin 81 Mg Chewable Tablet PO 81 mg DAILY@0800 KENAN Administration Aspirin 325 mg 02/04/25 21:15 02/04/25 22:25 Aspirin 325 Mg Enteric Tablet PO 325 mg HS KENAN Administration Atorvastatin Calcium 40 mg 02/05/25 21:00 Atorvastatin 40 Mg Tablet PO QHS KEANN Docusate Sodium 100 mg 02/04/25 17:00 02/05/25 17:38 Docusate Sodium 100 Mg Capsule PO 100 mg BID KENAN Administration Donepezil HCl 5 mg 02/05/25 21:00 Donepezil Hcl 5 Mg Tablet PO QHS KENAN Fluticasone Propionate 1 spray 02/05/25 09:00 02/05/25 09:28 Fluticasone Propionate 0.05% Na Spr 16 Gm Btl (*Bkc) NASAL 1 spray Q12HR KENAN Administration Heparin Sodium (Porcine) 4,000 units 02/04/25 11:50 Heparin Sodium 5,000 Units/Ml Vial IV PUSH PRN PRN aPTT less than 55 seconds Heparin Sodium (Porcine) 3,000 units 02/04/25 11:50 Heparin Sodium 5,000 Units/Ml Vial IV PUSH PRN PRN aPTT 55 - 70 seconds Heparin Sodium/Dextrose 25,000 units in 250 mls @ 8 mls/hr 02/04/25 11:50 02/05/25 08:09 Heparin Sodium/D5w 100 Units/Ml IV CONT 800 units/hr .Q24H KENAN 8 mls/hr Titration Protocol 800 UNITS/HR Losartan Potassium 50 mg 02/05/25 09:00 02/05/25 09:28 Losartan Potassium 50 Mg Tablet PO 50 mg DAILY KENAN Administration Melatonin 3 mg 02/04/25 21:15 02/04/25 22:25 Melatonin 3 Mg Tablet PO 3 mg HS KENAN Administration Memantine 28 mg 02/04/25 23:25 02/05/25 00:42 Memantine Hcl Xr 28 Mg Cap PO Not Given HS [facility] Morphine Sulfate 2 mg 02/04/25 15:37 Morphine Sulfate (*Crx) 2 Mg/Ml Inj IV PUSH Q4H PRN Pain Rated 7-10 Nitroglycerin 0.4 mg 02/04/25 15:37 Nitroglycerin Sl 0.4 Mg Tablet SUBLINGUAL Q5MIN PRN Chest Pain Pantoprazole Sodium 40 mg 02/05/25 21:00 Pantoprazole 40 Mg Tablet PO HS [facility] Perflutren Lipid Microsphere 0 ml 02/05/25 11:09 Perflutren Lipid Microspheres 1.5 Ml Vial Diluted To 10 Ml Total Volume IV PUSH 02/08/25 11:09 ONCE PRN adequate visualization Protocol Radiology Results: ITS Impressions Chest X-Ray 02/04/25 11:41 IMPRESSION: 1: NO ACUTE CARDIOPULMONARY DISEASE. Labs Labs: Laboratory Results - last 24 hr 02/04/25 02/05/25 02/05/25 18:11 00:48 06:59 WBC 4.8 RBC 4.18 L Hgb 13.9 L Hct 41.7 L MCV 99.8 MCH 33.3 MCHC 33.3 RDW 13.0 Plt Count 180 MPV 9.5 Immature Gran % (Auto) 0.4 Neut % (Auto) 50.2 Lymph % (Auto) 41.0 [place] % (Auto) 6.9 Eos % (Auto) 1.1 Baso % (Auto) 0.4 Lymph # (Auto) 1.95 [place] # (Auto) 0.3 Eos # (Auto) 0.1 Baso # (Auto) 0.0 Abs Immat Gran (auto) 0.02 Absolute Neuts (auto) 2.4 Absolute Nucleated RBC 0.000 Nucleated RBC % 0.0 APTT 120.3 H 91.0 H 88.2 H Sodium 136 L Potassium 4.2 Chloride 103 Carbon Dioxide 27 Anion Gap 6 BUN 18 Creatinine 0.94 Estim Creat Clear Calc 47 Estimated GFR > 60 Glucose 94 Calcium 9.6 Troponin I 6.920 H* D Urine Color Urine Appearance Urine pH Ur Specific [place] Urine Protein Urine Glucose (UA) Urine Ketones Ur Blood (Man) Urine Nitrate Urine Bilirubin Urine Urobilinogen Leukocyte Esterase Rfl Urine RBC Urine WBC Ur Squamous Epith Cells Urine Bacteria Urine Casts 02/05/25 02/05/25 12:32 14:03 WBC RBC Hgb Hct MCV MCH MCHC RDW Plt Count MPV Immature Gran % (Auto) Neut % (Auto) Lymph % (Auto) [place] % (Auto) Eos % (Auto) Baso % (Auto) Lymph # (Auto) [place] # (Auto) Eos # (Auto) Baso # (Auto) Abs Immat Gran (auto) Absolute Neuts (auto) Absolute Nucleated RBC Nucleated RBC % APTT Sodium Potassium Chloride Carbon Dioxide Anion Gap BUN Creatinine Estim Creat Clear Calc Estimated GFR Glucose Calcium Troponin I 4.300 H* Urine Color Yellow Urine Appearance Clear Urine pH 7.0 Ur Specific [place] 1.021 Urine Protein Negative Urine Glucose (UA) Negative Urine Ketones Trace H Ur Blood (Man) Negative Urine Nitrate Negative Urine Bilirubin Negative Urine Urobilinogen 1.0 Leukocyte Esterase Rfl Trace H Urine RBC 0-2 Urine WBC 0-5 Ur Squamous Epith Cells None seen Urine Bacteria None seen Urine Casts 0-2 Quality VTE Prophylaxis VTE prophylaxis: mechanical ordered and pharmacologic ordered
[2025-02-05] MEDS: HEPARIN SOD/D5W 100 UNITS/ML 25,000 UNITS/250 ML BAG 8 UNITS IV CONT (18:45)
[2025-02-05 18:54] LABS: Troponin I 3.690 ng/mL (0.000-0.034)
[2025-02-05] MEDS: ATORVASTATIN 40 MG TABLET PO (19:56)
[2025-02-05] MEDS: HYDROcodone/acetaminophen (*CRX) 5-325 MG TABLET 1 TAB PO (19:56)
[2025-02-05] MEDS: MEMANTINE HCL XR 28 MG CAP PO (19:56)
[2025-02-05] MEDS: PANTOPRAZOLE 40 MG TABLET PO (19:56)
[2025-02-05] MEDS: MELATONIN 3 MG TABLET PO (19:56)
[2025-02-05] MEDS: DONEPEZIL HCL 5 MG TABLET PO (19:56)
[2025-02-05] MEDS: ASPIRIN 325 MG ENTERIC TABLET PO (19:57)
[2025-02-06] VITALS (17 sets, daily range): BP systolic 142–173; BP diastolic 72–94; PULSE 44–59; RESP 12–20; TEMP 36.4–36.9; O2SAT 94–99
[2025-02-06 05:43] LABS: Partial Thromboplastin Time 75.3 Seconds (22.3-36.8)
[2025-02-06] MEDS: FLUTICASONE PROPIONATE 0.05% NA SPR 16 GM BTL (*BKC) 1 SPRAY NASAL (08:00)
[2025-02-06] MEDS: ACETAMINOPHEN 325 MG TABLET 650 MG PO ×2 (08:01→16:02)
[2025-02-06] MEDS: LOSARTAN POTASSIUM 50 MG TABLET PO (08:01)
[2025-02-06] MEDS: DOCUSATE SODIUM 100 MG CAPSULE PO ×2 (08:01→16:02)
--- NOTE | 2025-02-06 11:37 | P.PNCA_ITS ---
Progress Note: A&P Assessment and Plan (1) NSTEMI (non-ST elevated myocardial infarction): Code(s): I21.4 - Non-ST elevation (NSTEMI) myocardial infarction Status: Acute (2) Atrial fibrillation with rapid ventricular response: Code(s): I48.91 - Unspecified atrial fibrillation Status: Acute (3) Hyperlipidemia: Code(s): E78.5 - Hyperlipidemia, unspecified Status: Acute Plan 89-year-old man with Alzheimer's dementia, hypertension, and hyperlipidemia presented with chest discomfort Non ST-elevation [place] -given his advanced Alzheimer's dementia, I have attempted to discuss with him his overall clinical course however does not appear that he is competent to make his own decisions -therefore I have discussed with his son Landon in person overall clinical presentation and findings along with therapeutic approaches and risks/benefits/alternatives of each and have reached a decision to medically managed at this time given stable EKG as well as echo and clinical presentation -patient has completed 48 hours of heparin drip and is without chest pain or arr hythmias on monitor -can be discharged on aspirin 325 mg every evening and atorvastatin 40 mg every evening Paroxysmal atrial fibrillation -he can follow-up with his outpatient semiconductor engineer to determine long-term rhythm control strategy and possible anticoagulation if rhythm control is pursued -at this time after discussing the risks/benefits/alternatives with Landon, he wants to hold off on anticoagulation and reconsider in outpatient setting Hyperlipidemia -continue atorvastatin 40 mg every evening No further inpatient workup warranted at this time. Patient can work with physical therapy without cardiopulmonary restrictions. Please call if he has cardiopulmonary limitations such as chest discomfort while working with physical therapy. Otherwise we will sign off and patient follow-up with Dr. Cervantes in 1-2 weeks Subjective Date/time seen: 02/06/25 11:37 Interval history: No chest pain or shortness of breath. No presyncope or lightheadedness. Was able to ambulate with assistance to the bathroom without any cardiopulmonary limitations. Review of Systems Cardiovascular: Cardiovascular: Reports as per HPI Respiratory: Respiratory: Reports as per HPI Exam Const: General: comfortable HENMT: Mouth: Yes moist mucous membranes Eyes: EOM: EOMs intact bilaterally Neck: Neck: no JVD Resp: Effort & Inspection: normal respiratory effort Auscultation: clear to auscultation bilaterally Cardio: Rate: regular rate Rhythm: regular rhythm GI: GI Palp: Yes Soft to palpation Neuro: Speech: normal speech Extrem: General: no pedal edema Objective Data Vital Signs Vital Signs: Vital Signs - 24 hr 02/05/25 12:00 02/05/25 12:00 02/05/25 12:00 Temperature 36.4 C L Pulse Rate 49 L 46 L Respiratory Rate 18 Blood Pressure 155/76 H Pulse Oximetry 98 Oxygen Delivery Room Air 02/05/25 14:00 02/05/25 16:00 02/05/25 16:00 Temperature Pulse Rate 56 L 55 L Respiratory Rate Blood Pressure Pulse Oximetry Oxygen Delivery Room Air 02/05/25 16:00 02/05/25 18:00 02/05/25 20:00 Temperature 36.9 C Pulse Rate 50 L 69 Respiratory Rate 16 Blood Pressure 170/95 H Pulse Oximetry 97 Oxygen Delivery Room Air 02/05/25 20:00 02/05/25 20:27 02/05/25 22:00 Temperature 36.4 C Pulse Rate 64 56 L 52 L Respiratory Rate 18 Blood Pressure 140/82 Pulse Oximetry 93 Oxygen Delivery 02/05/25 23:33 02/06/25 00:00 02/06/25 00:00 Temperature 36.5 C Pulse Rate 55 L 52 L Respiratory Rate 18 Blood Pressure 111/68 Pulse Oximetry 94 Oxygen Delivery Room Air 02/06/25 02:00 02/06/25 03:52 02/06/25 04:00 Temperature Pulse Rate 45 L 53 L Respiratory Rate Blood Pressure Pulse Oximetry Oxygen Delivery Room Air 02/06/25 04:00 02/06/25 06:00 02/06/25 07:51 Temperature 36.5 C 36.4 C Pulse Rate 50 L 44 L 49 L Respiratory Rate 18 16 Blood Pressure 144/81 H 168/92 H Pulse Oximetry 99 94 Oxygen Delivery 02/06/25 11:35 Temperature 36.9 C Pulse Rate 59 L Respiratory Rate 12 Blood Pressure 148/72 H Pulse Oximetry 98 Oxygen Delivery Intake/Output Intake/Output: Intake & Output 02/03/25 02/04/25 02/05/25 02/06/25 23:59 23:59 23:59 23:59 Intake Total 1018.5 1401.5 786 Output Total 350 300 Balance 1018.5 1051.5 486 Meds/Results Medications: Active Medications Generic Name Dose Route Start Last Admin Trade Name Freq PRN Reason Stop Dose Admin Acetaminophen 650 mg 02/04/25 13:38 02/06/25 08:01 Acetaminophen 325 Mg Tablet PO 650 mg Q4H PRN Administration Mild Pain (1-3) or Fever Hydrocodone Bitart/Acetaminophen 1 tab 02/04/25 15:37 02/05/25 19:56 Hydrocodone/Acetaminophen (*Crx) 5-325 Mg Tablet PO 1 tab Q4H PRN Administration Moderate Pain (4-6) Aspirin 325 mg 02/04/25 21:15 02/05/25 19:57 Aspirin 325 Mg Enteric Tablet PO 325 mg HS KENAN Administration Atorvastatin Calcium 40 mg 02/05/25 21:00 02/05/25 19:56 Atorvastatin 40 Mg Tablet PO 40 mg QHS KENAN Administration Docusate Sodium 100 mg 02/04/25 17:00 02/06/25 08:01 Docusate Sodium 100 Mg Capsule PO 100 mg BID KENAN Administration Donepezil HCl 5 mg 02/05/25 21:00 02/05/25 19:56 Donepezil Hcl 5 Mg Tablet PO 5 mg QHS KENAN Administration Fluticasone Propionate 1 spray 02/05/25 09:00 02/06/25 08:00 Fluticasone Propionate 0.05% Na Spr 16 Gm Btl (*Bkc) NASAL 1 spray Q12HR KENAN Administration Losartan Potassium 50 mg 02/05/25 09:00 02/06/25 08:01 Losartan Potassium 50 Mg Tablet PO 50 mg DAILY KENAN Administration Melatonin 3 mg 02/04/25 21:15 02/05/25 19:56 Melatonin 3 Mg Tablet PO 3 mg HS KENAN Administration Memantine 28 mg 02/04/25 23:25 02/05/25 19:56 Memantine Hcl Xr 28 Mg Cap PO 28 mg HS KENAN Administration Morphine Sulfate 2 mg 02/04/25 15:37 Morphine Sulfate (*Crx) 2 Mg/Ml Inj IV PUSH Q4H PRN Pain Rated 7-10 Nitroglycerin 0.4 mg 02/04/25 15:37 Nitroglycerin Sl 0.4 Mg Tablet SUBLINGUAL Q5MIN PRN Chest Pain Pantoprazole Sodium 40 mg 02/05/25 21:00 02/05/25 19:56 Pantoprazole 40 Mg Tablet PO 40 mg HS KENAN Administration Perflutren Lipid Microsphere 0 ml 02/05/25 11:09 Perflutren Lipid Microspheres 1.5 Ml Vial Diluted To 10 Ml Total Volume IV PUSH 02/08/25 11:09 ONCE PRN adequate visualization Protocol Radiology Results: ITS Impressions Chest X-Ray 02/04/25 11:41 IMPRESSION: 1: NO ACUTE CARDIOPULMONARY DISEASE. Labs Labs: Laboratory Results - last 24 hr 02/05/25 02/05/25 02/05/25 12:32 14:03 18:16 APTT Troponin I 4.300 H* 3.690 H* Urine Color Yellow Urine Appearance Clear Urine pH 7.0 Ur Specific [place] 1.021 Urine Protein Negative Urine Glucose (UA) Negative Urine Ketones Trace H Ur Blood (Man) Negative Urine Nitrate Negative Urine Bilirubin Negative Urine Urobilinogen 1.0 Leukocyte Esterase Rfl Trace H Urine RBC 0-2 Urine WBC 0-5 Ur Squamous Epith Cells None seen Urine Bacteria None seen Urine Casts 0-2 02/06/25 05:08 APTT 75.3 H Troponin I Urine Color Urine Appearance Urine pH Ur Specific [place] Urine Protein Urine Glucose (UA) Urine Ketones Ur Blood (Man) Urine Nitrate Urine Bilirubin Urine Urobilinogen Leukocyte Esterase Rfl Urine RBC Urine WBC Ur Squamous Epith Cells Urine Bacteria Urine Casts
--- NOTE | 2025-02-06 18:15 | P.PNIM_ITS ---
Progress Note: A&P Assessment and Plan (1) NSTEMI (non-ST elevated myocardial infarction): Code(s): I21.4 - Non-ST elevation (NSTEMI) myocardial infarction Status: Acute Assessment and Plan: Cardiology consulted Heparin drip per protocol NPO midnight Trend troponins EKG p.r.n. Nitro for chest pain (2) Atrial fibrillation with rapid ventricular response: Code(s): I48.91 - Unspecified atrial fibrillation Status: Acute Assessment and Plan: Resolved in emergency room now bradycardic (3) Hypertension: Code(s): I10 - Essential (primary) hypertension Status: Acute Assessment and Plan: Not on medication (4) Dementia of the Alzheimer's type: Code(s): G30.9 - Alzheimer's disease, unspecified; F02.80 - Dementia in other diseases classified elsewhere, unspecified severity, without behavioral disturbance, psychotic disturbance, mood disturbance, and anxiety Status: Acute Assessment and Plan: Aricept to 5 mg a day and continue with the memantine XR 28 mg a day. (5) Hyperlipidemia: Code(s): E78.5 - Hyperlipidemia, unspecified Status: Acute Assessment and Plan: Continue losartan (6) Altered mental status: Code(s): R41.82 - Altered mental status, unspecified Status: Acute Assessment and Plan: Acute illness versus infection versus other Patient is decreased from baseline UA pending Plan patient presented with CP, and has elevated tropes and climbing, patient is 89 y/o with dementia and poor historian, cardiac ECHO is normal and patient symptoms have resolved. patient is seen by tugboat operator who spoke with patient, due to patient advance age, and dementia, his tropes are trending down, his cardiac ECHO is normal, his symptoms have resolved, will do the medical management and monitor, will PT/OT evaluate the patient and will benefit going to rehab. Subjective Date/time seen: 02/06/25 18:15 Interval history: H&P-Narrative: 89-year-old male with past medical history of Alzheimer's, prostate cancer, hypertension hyperlipidemia presents the hospital from a longterm chest pain. Due to patient's dementia HPI is limited. Patient is only oriented to name, patient keeps pointing/grabbing his chest. Patient's family is at bedside. Family states the patient has much more confused than he normally is. Lab work shows sodium of 136, glucose of 126, troponin of 0.29 to and 2.240 cardiology has been consulted and patient has been started on heparin drip. EKG shows atrial flutter/tachycardia with RVR 123, UA pending patient presented with CP, and has elevated tropes and climbing, patient is 89 y/o with dementia and poor historian, cardiac ECHO is normal and patient symptoms have resolved. patient is seen by tugboat operator who spoke with patient, due to patient advance age, and dementia, his tropes are trending down, his cardiac ECHO is normal, his symptoms have resolved, will do the medical management and monitor, will PT/OT evaluate the patient and will benefit going to rehab. Review of Systems Review of Systems: ROS unobtainable: Yes unobtainable due to mental status Exam Narrative: Elderly frail Patient is comfortable, NAD HEENT: eyes are clear and none icteric LUNGS:CTA HEART: RR S1S2 ABD: BS+, Soft and nontender Lower extremities: no edema SKIN: nonjaundiced Neuro: grossly intact. Dementia Objective Data Vital Signs Vital Signs: Vital Signs - 24 hr 02/05/25 20:00 02/05/25 20:00 02/05/25 20:27 Temperature 36.4 C Pulse Rate 64 56 L Respiratory Rate 18 Blood Pressure 140/82 Pulse Oximetry 93 Oxygen Delivery Room Air 02/05/25 22:00 02/05/25 23:33 02/06/25 00:00 Temperature 36.5 C Pulse Rate 52 L 55 L Respiratory Rate 18 Blood Pressure 111/68 Pulse Oximetry 94 Oxygen Delivery Room Air 02/06/25 00:00 02/06/25 02:00 02/06/25 03:52 Temperature Pulse Rate 52 L 45 L Respiratory Rate Blood Pressure Pulse Oximetry Oxygen Delivery Room Air 02/06/25 04:00 02/06/25 04:00 02/06/25 06:00 Temperature 36.5 C Pulse Rate 53 L 50 L 44 L Respiratory Rate 18 Blood Pressure 144/81 H Pulse Oximetry 99 Oxygen Delivery 02/06/25 07:51 02/06/25 08:00 02/06/25 10:00 Temperature 36.4 C Pulse Rate 49 L 52 L 48 L Respiratory Rate 16 Blood Pressure 168/92 H Pulse Oximetry 94 Oxygen Delivery 02/06/25 11:35 02/06/25 12:00 02/06/25 14:00 Temperature 36.9 C Pulse Rate 59 L 56 L 49 L Respiratory Rate 12 Blood Pressure 148/72 H Pulse Oximetry 98 Oxygen Delivery 02/06/25 15:31 02/06/25 16:00 02/06/25 18:00 Temperature 36.8 C Pulse Rate 56 L 55 L 57 L Respiratory Rate 20 Blood Pressure 158/86 H Pulse Oximetry 96 Oxygen Delivery Intake/Output Intake/Output: Intake & Output 02/03/25 02/04/25 02/05/25 02/06/25 23:59 23:59 23:59 23:59 Intake Total 1018.5 1401.5 2262 Output Total 350 300 Balance 1018.5 1051.5 1962 Meds/Results Medications: Active Medications Generic Name Dose Route Start Last Admin Trade Name Freq PRN Reason Stop Dose Admin Acetaminophen 650 mg 02/04/25 13:38 02/06/25 16:02 Acetaminophen 325 Mg Tablet PO 650 mg Q4H PRN Administration Mild Pain (1-3) or Fever Hydrocodone Bitart/Acetaminophen 1 tab 02/04/25 15:37 02/05/25 19:56 Hydrocodone/Acetaminophen (*Crx) 5-325 Mg Tablet PO 1 tab Q4H PRN Administration Moderate Pain (4-6) Aspirin 325 mg 02/04/25 21:15 02/05/25 19:57 Aspirin 325 Mg Enteric Tablet PO 325 mg HS KENAN Administration Atorvastatin Calcium 40 mg 02/05/25 21:00 02/05/25 19:56 Atorvastatin 40 Mg Tablet PO 40 mg QHS KENAN Administration Docusate Sodium 100 mg 02/04/25 17:00 02/06/25 16:02 Docusate Sodium 100 Mg Capsule PO 100 mg BID KENAN Administration Donepezil HCl 5 mg 02/05/25 21:00 02/05/25 19:56 Donepezil Hcl 5 Mg Tablet PO 5 mg QHS KENAN Administration Fluticasone Propionate 1 spray 02/05/25 09:00 02/06/25 08:00 Fluticasone Propionate 0.05% Na Spr 16 Gm Btl (*Bkc) NASAL 1 spray Q12HR KENAN Administration Losartan Potassium 50 mg 02/05/25 09:00 02/06/25 08:01 Losartan Potassium 50 Mg Tablet PO 50 mg DAILY KENAN Administration Melatonin 3 mg 02/04/25 21:15 02/05/25 19:56 Melatonin 3 Mg Tablet PO 3 mg HS KENAN Administration Memantine 28 mg 02/04/25 23:25 02/05/25 19:56 Memantine Hcl Xr 28 Mg Cap PO 28 mg HS KENAN Administration Morphine Sulfate 2 mg 02/04/25 15:37 Morphine Sulfate (*Crx) 2 Mg/Ml Inj IV PUSH Q4H PRN Pain Rated 7-10 Nitroglycerin 0.4 mg 02/04/25 15:37 Nitroglycerin Sl 0.4 Mg Tablet SUBLINGUAL Q5MIN PRN Chest Pain Pantoprazole Sodium 40 mg 02/05/25 21:00 02/05/25 19:56 Pantoprazole 40 Mg Tablet PO 40 mg HS KENAN Administration Perflutren Lipid Microsphere 0 ml 02/05/25 11:09 Perflutren Lipid Microspheres 1.5 Ml Vial Diluted To 10 Ml Total Volume IV PUSH 02/08/25 11:09 ONCE PRN adequate visualization Protocol Radiology Results: ITS Impressions Chest X-Ray 02/04/25 11:41 IMPRESSION: 1: NO ACUTE CARDIOPULMONARY DISEASE. Labs Labs: Laboratory Results - last 24 hr 02/05/25 02/06/25 18:16 05:08 APTT 75.3 H Troponin I 3.690 H* Quality VTE Prophylaxis VTE prophylaxis: mechanical ordered and pharmacologic ordered
[2025-02-06] MEDS: ATORVASTATIN 40 MG TABLET PO (20:16)
[2025-02-06] MEDS: MEMANTINE HCL XR 28 MG CAP PO (20:16)
[2025-02-06] MEDS: DONEPEZIL HCL 5 MG TABLET PO (20:16)
[2025-02-06] MEDS: MELATONIN 3 MG TABLET PO (20:16)
[2025-02-06] MEDS: PANTOPRAZOLE 40 MG TABLET PO (20:16)
[2025-02-06] MEDS: ASPIRIN 325 MG ENTERIC TABLET PO (20:17)
[2025-02-07] VITALS (14 sets, daily range): BP systolic 156–177; BP diastolic 87–90; PULSE 44–63; RESP 12–18; TEMP 36.4–36.7; O2SAT 95–97
[2025-02-07] MEDS: FLUTICASONE PROPIONATE 0.05% NA SPR 16 GM BTL (*BKC) 1 SPRAY NASAL (08:06)
[2025-02-07] MEDS: DOCUSATE SODIUM 100 MG CAPSULE PO ×2 (08:08→18:05)
[2025-02-07] MEDS: LOSARTAN POTASSIUM 50 MG TABLET PO (08:08)
[2025-02-07] MEDS: ACETAMINOPHEN 325 MG TABLET 650 MG PO ×2 (08:08→18:05)
[2025-02-07 09:18] LABS: Hematocrit 40.5 % (42.0-52.0); Hemoglobin 13.4 g/dL (14.0-18.0); Mean Corpuscular HGB Conc 33.1 g/dl (32-36); Mean Corpuscular Hemoglobin 33.3 pg (26-34); Mean Corpuscular Volume 100.7 fl (80-100); Platelet Count Result 158 k/mm3 (150-375); Red Blood Count 4.02 M/mm3 (4.6-6.20); White Blood Count 4.6 K/mm3 (4.5-10.0)
[2025-02-07 09:43] LABS: Anion Gap 3 mmol/L (4-12); Blood Urea Nitrogen 20 mg/dL (9-20); Calcium 9.5 mg/dL (8.4-10.2); Carbon Dioxide 27 mmol/L (22-30); Chloride 102 mmol/L (98-107); Estimated CRCL calculation 47 ml/min; Estimated Glomerular Filt Rate > 60; Glucose 91 mg/dL (65-110); Magnesium 1.8 mg/dL (1.6-2.3); Potassium 4.1 mmol/L (3.4-5.0); Sodium 132 mmol/L (137-145)
--- NOTE | 2025-02-07 13:06 | P.PNIM_ITS ---
Progress Note: A&P Assessment and Plan (1) NSTEMI (non-ST elevated myocardial infarction): Code(s): I21.4 - Non-ST elevation (NSTEMI) myocardial infarction Status: Acute Assessment and Plan: Cardiology consulted Heparin drip per protocol NPO midnight Trend troponins EKG p.r.n. Nitro for chest pain (2) Atrial fibrillation with rapid ventricular response: Code(s): I48.91 - Unspecified atrial fibrillation Status: Acute Assessment and Plan: Resolved in emergency room now bradycardic (3) Hypertension: Code(s): I10 - Essential (primary) hypertension Status: Acute Assessment and Plan: Not on medication (4) Dementia of the Alzheimer's type: Code(s): G30.9 - Alzheimer's disease, unspecified; F02.80 - Dementia in other diseases classified elsewhere, unspecified severity, without behavioral disturbance, psychotic disturbance, mood disturbance, and anxiety Status: Acute Assessment and Plan: Aricept to 5 mg a day and continue with the memantine XR 28 mg a day. (5) Hyperlipidemia: Code(s): E78.5 - Hyperlipidemia, unspecified Status: Acute Assessment and Plan: Continue losartan (6) Altered mental status: Code(s): R41.82 - Altered mental status, unspecified Status: Acute Assessment and Plan: Acute illness versus infection versus other Patient is decreased from baseline UA pending Plan patient presented with CP, and has elevated tropes and climbing, patient is 89 y/o with dementia and poor historian, cardiac ECHO is normal and patient symptoms have resolved. patient is seen by precision inspector who spoke with patient, due to patient advance age, and dementia, his tropes are trending down, his cardiac ECHO is normal, his symptoms have resolved, will do the medical management and monitor, will PT/OT evaluate the patient and will benefit going to rehab. patient remains clinically stable and has no complaints, will discharge back to his NH. Subjective Date/time seen: 02/07/25 13:06 Interval history: H&P-Narrative: 89-year-old male with past medical history of Alzheimer's, prostate cancer, hypertension hyperlipidemia presents the hospital from a correction chest pain. Due to patient's dementia HPI is limited. Patient is only oriented to name, patient keeps pointing/grabbing his chest. Patient's family is at bedside. Family states the patient has much more confused than he normally is. Lab work shows sodium of 136, glucose of 126, troponin of 0.29 to and 2.240 cardiology has been consulted and patient has been started on heparin drip. EKG shows atrial flutter/tachycardia with RVR 123, UA pending patient presented with CP, and has elevated tropes and climbing, patient is 89 y/o with dementia and poor historian, cardiac ECHO is normal and patient symptoms have resolved. patient is seen by precision inspector who spoke with patient, due to patient advance age, and dementia, his tropes are trending down, his car diac ECHO is normal, his symptoms have resolved, will do the medical management and monitor, will PT/OT evaluate the patient and will benefit going to rehab. patient remains clinically stable and has no complaints, will discharge back to his NH. Review of Systems Review of Systems: ROS unobtainable: Yes unobtainable due to mental status Exam Narrative: Elderly frail Patient is comfortable, NAD HEENT: eyes are clear and none icteric LUNGS:CTA HEART: RR S1S2 ABD: BS+, Soft and nontender Lower extremities: no edema SKIN: nonjaundiced Neuro: grossly intact. Dementia Objective Data Vital Signs Vital Signs: Vital Signs - 24 hr 02/06/25 14:00 02/06/25 15:31 02/06/25 16:00 Temperature 36.8 C Pulse Rate 49 L 56 L 55 L Respiratory Rate 20 Blood Pressure 158/86 H Pulse Oximetry 96 Oxygen Delivery 02/06/25 16:00 02/06/25 18:00 02/06/25 19:38 Temperature 36.8 C Pulse Rate 57 L 56 L Respiratory Rate 18 Blood Pressure 142/84 H Pulse Oximetry 96 96 Oxygen Delivery Room Air 02/06/25 20:00 02/06/25 20:15 02/06/25 22:00 Temperature Pulse Rate 55 L 49 L Respiratory Rate Blood Pressure Pulse Oximetry Oxygen Delivery Room Air 02/06/25 23:52 02/07/25 00:00 02/07/25 00:00 Temperature 36.7 C Pulse Rate 54 L 49 L Respiratory Rate 18 Blood Pressure 173/94 H Pulse Oximetry 95 Oxygen Delivery Room Air 02/07/25 02:00 02/07/25 04:00 02/07/25 04:00 Temperature 36.4 C L Pulse Rate 44 L 51 L 52 L Respiratory Rate 18 Blood Pressure 177/89 H Pulse Oximetry 95 Oxygen Delivery 02/07/25 04:05 02/07/25 06:00 02/07/25 07:43 Temperature 36.4 C L Pulse Rate 46 L 44 L Respiratory Rate 12 Blood Pressure 171/90 H Pulse Oximetry 97 Oxygen Delivery Room Air 02/07/25 11:30 Temperature 36.7 C Pulse Rate 50 L Respiratory Rate 18 Blood Pressure 157/87 H Pulse Oximetry 96 Oxygen Delivery Intake/Output Intake/Output: Intake & Output 02/04/25 02/05/25 02/06/25 02/07/25 23:59 23:59 23:59 23:59 Intake Total 1018.5 1401.5 2262 1090 Output Total 350 300 Balance 1018.5 1051.5 1962 1090 Meds/Results Medications: Active Medications Generic Name Dose Route Start Last Admin Trade Name Freq PRN Reason Stop Dose Admin Acetaminophen 650 mg 02/04/25 13:38 02/07/25 08:08 Acetaminophen 325 Mg Tablet PO 650 mg Q4H PRN Administration Mild Pain (1-3) or Fever Hydrocodone Bitart/Acetaminophen 1 tab 02/04/25 15:37 02/05/25 19:56 Hydrocodone/Acetaminophen (*Crx) 5-325 Mg Tablet PO 1 tab Q4H PRN Administration Moderate Pain (4-6) Aspirin 325 mg 02/04/25 21:15 02/06/25 20:17 Aspirin 325 Mg Enteric Tablet PO 325 mg HS KENAN Administration Atorvastatin Calcium 40 mg 02/05/25 21:00 02/06/25 20:16 Atorvastatin 40 Mg Tablet PO 40 mg QHS KENAN Administration Docusate Sodium 100 mg 02/04/25 17:00 02/07/25 08:08 Docusate Sodium 100 Mg Capsule PO 100 mg BID KENAN Administration Donepezil HCl 5 mg 02/05/25 21:00 02/06/25 20:16 Donepezil Hcl 5 Mg Tablet PO 5 mg QHS KENAN Administration Fluticasone Propionate 1 spray 02/05/25 09:00 02/07/25 08:06 Fluticasone Propionate 0.05% Na Spr 16 Gm Btl (*Bkc) NASAL 1 spray Q12HR KENAN Administration Losartan Potassium 50 mg 02/05/25 09:00 02/07/25 08:08 Losartan Potassium 50 Mg Tablet PO 50 mg DAILY KENAN Administration Melatonin 3 mg 02/04/25 21:15 02/06/25 20:16 Melatonin 3 Mg Tablet PO 3 mg HS KENAN Administration Memantine 28 mg 02/04/25 23:25 02/06/25 20:16 Memantine Hcl Xr 28 Mg Cap PO 28 mg HS KENAN Administration Morphine Sulfate 2 mg 02/04/25 15:37 Morphine Sulfate (*Crx) 2 Mg/Ml Inj IV PUSH Q4H PRN Pain Rated 7-10 Nitroglycerin 0.4 mg 02/04/25 15:37 Nitroglycerin Sl 0.4 Mg Tablet SUBLINGUAL Q5MIN PRN Chest Pain Pantoprazole Sodium 40 mg 02/05/25 21:00 02/06/25 20:16 Pantoprazole 40 Mg Tablet PO 40 mg HS KENAN Administration Perflutren Lipid Microsphere 0 ml 02/05/25 11:09 Perflutren Lipid Microspheres 1.5 Ml Vial Diluted To 10 Ml Total Volume IV PUSH 02/08/25 11:09 ONCE PRN adequate visualization Protocol Radiology Results: ITS Impressions Chest X-Ray 02/04/25 11:41 IMPRESSION: 1: NO ACUTE CARDIOPULMONARY DISEASE. Labs Labs: Laboratory Results - last 24 hr 02/07/25 09:12 WBC 4.6 RBC 4.02 L Hgb 13.4 L Hct 40.5 L MCV 100.7 H MCH 33.3 MCHC 33.1 RDW 13.0 Plt Count 158 MPV 9.5 Sodium 132 L Potassium 4.1 Chloride 102 Carbon Dioxide 27 Anion Gap 3 L BUN 20 Creatinine 0.95 Estim Creat Clear Calc 47 Estimated GFR > 60 Glucose 91 Calcium 9.5 Magnesium 1.8 Quality VTE Prophylaxis VTE prophylaxis: mechanical ordered and pharmacologic ordered
[2025-02-07] MEDS: ATORVASTATIN 40 MG TABLET PO (20:41)
[2025-02-07] MEDS: DONEPEZIL HCL 5 MG TABLET PO (20:41)
[2025-02-07] MEDS: PANTOPRAZOLE 40 MG TABLET PO (20:41)
[2025-02-07] MEDS: MEMANTINE HCL XR 28 MG CAP PO (20:42)
[2025-02-07] MEDS: MELATONIN 3 MG TABLET PO (20:42)
[2025-02-07] MEDS: ASPIRIN 325 MG ENTERIC TABLET PO (20:42)
--- NOTE | 2025-02-07 22:12 | PC.NURSE ---
This patient, Sincere Roberson, was transferred to [facility] on 02/07/25 at 2150. Personal belongings sent with patient. Report given to Mansoor. Appropriate documentation sent with patient.
[2025-02-08] VITALS (10 sets, daily range): BP systolic 144–153; BP diastolic 84–91; PULSE 48–108; RESP 16–17; TEMP 36.2–36.6; O2SAT 97–99
[2025-02-08 05:39] LABS: Hematocrit 42.1 % (42.0-52.0); Hemoglobin 13.9 g/dL (14.0-18.0); Mean Corpuscular HGB Conc 33.0 g/dl (32-36); Mean Corpuscular Hemoglobin 33.5 pg (26-34); Mean Corpuscular Volume 101.4 fl (80-100); Platelet Count Result 174 k/mm3 (150-375); Red Blood Count 4.15 M/mm3 (4.6-6.20); White Blood Count 7.1 K/mm3 (4.5-10.0)
[2025-02-08 06:02] LABS: Anion Gap 6 mmol/L (4-12); Blood Urea Nitrogen 20 mg/dL (9-20); Calcium 9.7 mg/dL (8.4-10.2); Carbon Dioxide 26 mmol/L (22-30); Chloride 100 mmol/L (98-107); Estimated CRCL calculation 51 ml/min; Estimated Glomerular Filt Rate > 60; Glucose 97 mg/dL (65-110); Magnesium 1.9 mg/dL (1.6-2.3); Potassium 3.9 mmol/L (3.4-5.0); Sodium 132 mmol/L (137-145)
[2025-02-08] MEDS: FLUTICASONE PROPIONATE 0.05% NA SPR 16 GM BTL (*BKC) 1 SPRAY NASAL ×2 (08:41→20:48)
[2025-02-08] MEDS: DOCUSATE SODIUM 100 MG CAPSULE PO ×2 (08:41→16:59)
[2025-02-08] MEDS: LOSARTAN POTASSIUM 50 MG TABLET PO (08:41)
--- NOTE | 2025-02-08 14:41 | P.PNIM_ITS ---
Progress Note: A&P Assessment and Plan (1) NSTEMI (non-ST elevated myocardial infarction): Code(s): I21.4 - Non-ST elevation (NSTEMI) myocardial infarction Status: Acute Assessment and Plan: Cardiology consulted Heparin drip per protocol NPO midnight Trend troponins EKG p.r.n. Nitro for chest pain (2) Atrial fibrillation with rapid ventricular response: Code(s): I48.91 - Unspecified atrial fibrillation Status: Acute Assessment and Plan: Resolved in emergency room now bradycardic (3) Hypertension: Code(s): I10 - Essential (primary) hypertension Status: Acute Assessment and Plan: Not on medication (4) Dementia of the Alzheimer's type: Code(s): G30.9 - Alzheimer's disease, unspecified; F02.80 - Dementia in other diseases classified elsewhere, unspecified severity, without behavioral disturbance, psychotic disturbance, mood disturbance, and anxiety Status: Acute Assessment and Plan: Aricept to 5 mg a day and continue with the memantine XR 28 mg a day. (5) Hyperlipidemia: Code(s): E78.5 - Hyperlipidemia, unspecified Status: Acute Assessment and Plan: Continue losartan (6) Altered mental status: Code(s): R41.82 - Altered mental status, unspecified Status: Acute Assessment and Plan: Acute illness versus infection versus other Patient is decreased from baseline UA pending Plan patient presented with CP, and has elevated tropes and climbing, patient is 89 y/o with dementia and poor historian, cardiac ECHO is normal and patient symptoms have resolved. patient is seen by tobacco sprayer who spoke with patient, due to patient advance age, and dementia, his tropes are trending down, his cardiac ECHO is normal, his symptoms have resolved, will do the medical management and monitor, will have PT/OT evaluate the patient and will benefit going to rehab. patient remains clinically stable and has no complaints, will discharge back to his NH possibly tomorrow. Subjective Date/time seen: 02/08/25 14:41 Interval history: H&P-Narrative: 89-year-old male with past medical history of Alzheimer's, prostate cancer, hypertension hyperlipidemia [facility] chest [facility]. Due to patient's dementia HPI is limited. Patient is only oriented to name, patient keeps pointing/grabbing his chest. Patient's family is at bedside. Family states the patient has much more confused than he normally is. Lab work shows sodium of 136, glucose of 126, troponin of 0.29 to and 2.240 cardiology has been consulted and patient has been started on heparin drip. EKG shows atrial flutter/tachycardia with RVR 123, UA pending patient presented with CP, and has elevated tropes and climbing, patient is 89 y/o with dementia and poor historian, cardiac ECHO is normal and patient symptoms have resolved. patient is seen by tobacco sprayer who spoke with patient, due to patient advance age, and dementia, his tropes are trending down, his cardiac ECHO is normal, his symptoms have resolved, will do the medical management and monitor, will have PT/OT evaluate the patient and will benefit going to rehab. patient remains clinically stable and has no complaints, will discharge back to his NH possibly tomorrow. Review of Systems Review of Systems: ROS unobtainable: Yes unobtainable due to mental status Exam Narrative: Elderly frail Patient is comfortable, NAD HEENT: eyes are clear and none icteric LUNGS:CTA HEART: RR S1S2 ABD: BS+, Soft and nontender Lower extremities: no edema SKIN: nonjaundiced Neuro: grossly intact. Dementia Objective Data Vital Signs Vital Signs: Vital Signs - 24 hr 02/07/25 16:00 02/07/25 16:00 02/07/25 18:00 Temperature 36.4 C L Pulse Rate 52 L 50 L 52 L Respiratory Rate 16 Blood Pressure 171/88 H Pulse Oximetry 96 02/07/25 20:00 02/07/25 21:51 02/08/25 00:00 Temperature 36.6 C Pulse Rate 63 53 L 53 L Respiratory Rate 16 Blood Pressure 156/87 H Pulse Oximetry 95 02/08/25 04:00 02/08/25 05:38 02/08/25 08:00 Temperature 36.6 C Pulse Rate 48 L 55 L 70 Respiratory Rate 16 Blood Pressure 153/84 H Pulse Oximetry 99 02/08/25 12:00 Temperature Pulse Rate 58 L Respiratory Rate Blood Pressure Pulse Oximetry Intake/Output Intake/Output: Intake & Output 02/05/25 02/06/25 02/07/25 02/08/25 23:59 23:59 23:59 23:59 Intake Total 1401.5 2262 1580 720 Output Total 350 300 Balance 1051.5 1962 1580 720 Meds/Results Medications: Active Medications Generic Name Dose Route Start Last Admin Trade Name Freq PRN Reason Stop Dose Admin Acetaminophen 650 mg 02/04/25 13:38 02/07/25 18:05 Acetaminophen 325 Mg Tablet PO 650 mg Q4H PRN Administration Mild Pain (1-3) or Fever Hydrocodone Bitart/Acetaminophen 1 tab 02/04/25 15:37 02/05/25 19:56 Hydrocodone/Acetaminophen (*Crx) 5-325 Mg Tablet PO 1 tab Q4H PRN Administration Moderate Pain (4-6) Aspirin 325 mg 02/04/25 21:15 02/07/25 20:42 Aspirin 325 Mg Enteric Tablet PO 325 mg HS KENAN Administration Atorvastatin Calcium 40 mg 02/05/25 21:00 02/07/25 20:41 Atorvastatin 40 Mg Tablet PO 40 mg QHS KENAN Administration Docusate Sodium 100 mg 02/04/25 17:00 02/08/25 08:41 Docusate Sodium 100 Mg Capsule PO 100 mg BID KENAN Administration Donepezil HCl 5 mg 02/05/25 21:00 02/07/25 20:41 Donepezil Hcl 5 Mg Tablet PO 5 mg QHS KENAN Administration Fluticasone Propionate 1 spray 02/05/25 09:00 02/08/25 08:41 Fluticasone Propionate 0.05% Na Spr 16 Gm Btl (*Bkc) NASAL 1 spray Q12HR KENAN Administration Losartan Potassium 50 mg 02/05/25 09:00 02/08/25 08:41 Losartan Potassium 50 Mg Tablet PO 50 mg DAILY KENAN Administration Melatonin 3 mg 02/04/25 21:15 02/07/25 20:42 Melatonin 3 Mg Tablet PO 3 mg HS KENAN Administration Memantine 28 mg 02/04/25 23:25 02/07/25 20:42 Memantine Hcl Xr 28 Mg Cap PO 28 mg HS KENAN Administration Morphine Sulfate 2 mg 02/04/25 15:37 Morphine Sulfate (*Crx) 2 Mg/Ml Inj IV PUSH Q4H PRN Pain Rated 7-10 Nitroglycerin 0.4 mg 02/04/25 15:37 Nitroglycerin Sl 0.4 Mg Tablet SUBLINGUAL Q5MIN PRN Chest Pain Pantoprazole Sodium 40 mg 02/05/25 21:00 02/07/25 20:41 Pantoprazole 40 Mg Tablet PO 40 mg HS KENAN Administration Radiology Results: ITS Impressions Chest X-Ray 02/04/25 11:41 IMPRESSION: 1: NO ACUTE CARDIOPULMONARY DISEASE. Labs Labs: Laboratory Results - last 24 hr 02/08/25 04:49 WBC 7.1 RBC 4.15 L Hgb 13.9 L Hct 42.1 MCV 101.4 H MCH 33.5 MCHC 33.0 RDW 13.0 Plt Count 174 MPV 9.9 Sodium 132 L Potassium 3.9 Chloride 100 Carbon Dioxide 26 Anion Gap 6 BUN 20 Creatinine 0.87 Estim Creat Clear Calc 51 Estimated GFR > 60 Glucose 97 Calcium 9.7 Magnesium 1.9 Quality VTE Prophylaxis VTE prophylaxis: mechanical ordered and pharmacologic ordered
[2025-02-08] MEDS: ATORVASTATIN 40 MG TABLET PO (20:46)
[2025-02-08] MEDS: DONEPEZIL HCL 5 MG TABLET PO (20:46)
[2025-02-08] MEDS: MEMANTINE HCL XR 28 MG CAP PO (20:46)
[2025-02-08] MEDS: ASPIRIN 325 MG ENTERIC TABLET PO (20:46)
[2025-02-08] MEDS: PANTOPRAZOLE 40 MG TABLET PO (20:46)
[2025-02-08] MEDS: MELATONIN 3 MG TABLET PO (20:46)
[2025-02-09] VITALS: PULSE 72
[2025-02-09 04:00] VITALS: PULSE 53
[2025-02-09 05:05] VITALS: BP 152/80; PULSE 58; RESP 17; TEMP 36.8; O2SAT 98
[2025-02-09 05:19] LABS: Hematocrit 40.7 % (42.0-52.0); Hemoglobin 13.5 g/dL (14.0-18.0); Mean Corpuscular HGB Conc 33.2 g/dl (32-36); Mean Corpuscular Hemoglobin 33.4 pg (26-34); Mean Corpuscular Volume 100.7 fl (80-100); Platelet Count Result 182 k/mm3 (150-375); Red Blood Count 4.04 M/mm3 (4.6-6.20); White Blood Count 5.6 K/mm3 (4.5-10.0)
[2025-02-09 06:14] LABS: Anion Gap 6 mmol/L (4-12); Blood Urea Nitrogen 20 mg/dL (9-20); Calcium 9.8 mg/dL (8.4-10.2); Carbon Dioxide 28 mmol/L (22-30); Chloride 101 mmol/L (98-107); Estimated CRCL calculation 51 ml/min; Estimated Glomerular Filt Rate > 60; Glucose 106 mg/dL (65-110); Magnesium 1.9 mg/dL (1.6-2.3); Potassium 4.7 mmol/L (3.4-5.0); Sodium 135 mmol/L (137-145)
[2025-02-09 08:00] VITALS: PULSE 51
[2025-02-09] MEDS: DOCUSATE SODIUM 100 MG CAPSULE PO ×2 (09:18→17:08)
[2025-02-09] MEDS: LOSARTAN POTASSIUM 50 MG TABLET PO (09:18)
[2025-02-09] MEDS: FLUTICASONE PROPIONATE 0.05% NA SPR 16 GM BTL (*BKC) 1 SPRAY NASAL (09:19)
[2025-02-09 12:00] VITALS: PULSE 66
--- NOTE | 2025-02-09 13:30 | P.DS_ITS ---
DS: Admitting Diagnosis Discharge Date 02/09/25 Admitting Diagnosis Chest pain DS: Discharge Diagnosis Discharge Diagnosis (1) NSTEMI (non-ST elevated myocardial infarction): Code(s): I21.4 - Non-ST elevation (NSTEMI) myocardial infarction Status: Acute Assessment and Plan: Cardiology consulted Heparin drip per protocol NPO midnight Trend troponins EKG p.r.n. Nitro for chest pain (2) Atrial fibrillation with rapid ventricular response: Code(s): I48.91 - Unspecified atrial fibrillation Status: Acute Assessment and Plan: Resolved in emergency room now bradycardic (3) Hypertension: Code(s): I10 - Essential (primary) hypertension Status: Acute Assessment and Plan: Not on medication (4) Dementia of the Alzheimer's type: Code(s): G30.9 - Alzheimer's disease, unspecified; F02.80 - Dementia in other diseases classified elsewhere, unspecified severity, without behavioral disturbance, psychotic disturbance, mood disturbance, and anxiety Status: Acute Assessment and Plan: Aricept to 5 mg a day and continue with the memantine XR 28 mg a day. (5) Hyperlipidemia: Code(s): E78.5 - Hyperlipidemia, unspecified Status: Acute Assessment and Plan: Continue losartan (6) Altered mental status: Code(s): R41.82 - Altered mental status, unspecified Status: Acute Assessment and Plan: Acute illness versus infection versus other Patient is decreased from baseline UA pending Plan patient presented with CP, and has elevated tropes and climbing, patient is 89 y/o with dementia and poor historian, cardiac ECHO is normal and patient symptoms have resolved. patient is seen by supervisor cabinetmaker who spoke with patient, due to patient advance age, and dementia, his tropes are trending down, his cardiac ECHO is normal, his symptoms have resolved, will do the medical management and monitor, will have PT/OT evaluate the patient and will benefit going to rehab. patient remains clinically stable and has no complaints, will discharge back to his NH possibly tomorrow. DS: Summary Hospital Course Hospital Course: patient presented with CP, and has elevated tropes and climbing, patient is 89 y/o with dementia and poor historian, cardiac ECHO is normal and patient symptoms have resolved. patient is seen by supervisor cabinetmaker who spoke with patient, due to patient advance age, and dementia, his tropes are trending down, his cardiac ECHO is normal, his symptoms have resolved, will do the medical management and monitor, will have PT/OT evaluate the patient and will benefit going to rehab. patient remains clinically stable and has no complaints, patient clinical symptoms have improved will discharge back to his NH possibly today. Time Spent with Patient Time attestation: Total time spent providing and/or coordinating discharge services: Exam Narrative: Elderly frail Patient is comfortable, NAD HEENT: eyes are clear and none icteric LUNGS:CTA HEART: RR S1S2 ABD: BS+, Soft and nontender Lower extremities: no edema SKIN: nonjaundiced Neuro: grossly intact. Dementia DS: Data Data Completed and Pending Labs on day of discharge: Labs from last 24 hours 02/09/25 04:46 WBC 5.6 RBC 4.04 L Hgb 13.5 L Hct 40.7 L MCV 100.7 H MCH 33.4 MCHC 33.2 RDW 13.0 Plt Count 182 MPV 9.7 Sodium 135 L Potassium 4.7 Chloride 101 Carbon Dioxide 28 Anion Gap 6 BUN 20 Creatinine 0.86 Estim Creat Clear Calc 51 Estimated GFR > 60 Glucose 106 Calcium 9.8 Magnesium 1.9 Discharge Plan Discharge Attending physician on discharge: Allyson Brown Consulting providers: Gregor Posey; Giuliano Hair; Gaby Gabriel; Miquel Cervantes; Otf Khan Discharging Clinician: Allyson Brown Patient Disposition: SNF Activity: as tolerated Diet: heart healthy Discharge Instructions: patient to follow up with his supervisor cabinetmaker and primary provider as soon as possible, patient is instructed if any symptoms worsen to go to nearest ER. Patient Instructions: Antibiotic Form Patient Language: Setswana Stand Alone Forms: General Discharge Information Follow-up/Referrals: Ericka Meyer MD [Primary Care Provider] - Rocky Mccall MD [Physician] - Discharge Medications: New atorvastatin 40 mg Tablet 40 mg PO QHS Qty: 30 0RF melatonin 3 mg Tablet 3 mg PO HS Qty: 30 0RF nitroglycerin [Nitrostat] 0.4 mg Tablet, Sublingual 0.4 mg sublingual Q5MIN PRN (Reason: Chest Pain) Qty: 26 0RF docusate sodium 100 mg Capsule 100 mg PO BID Qty: 30 0RF Continued losartan 50 mg tablet 50 mg PO DAILY Qty: 90 1RF donepezil [Aricept] 5 mg tablet 5 mg PO QHS Qty: 90 3RF cyanocobalamin (vitamin B-12) 500 mcg tablet 500 mcg PO HS aspirin 325 mg tablet,delayed release (DR/EC) 325 mg PO HS terazosin 2 mg capsule 2 mg PO HS omeprazole 20 mg capsule,delayed release(DR/EC) 20 mg PO HS memantine 28 mg capsule,sprinkle,ER 24hr 28 mg PO HS fluticasone propionate 50 mcg/actuation spray,suspension See Rx Instructions .ROUTE .COMPLEX Qty: 48 0RF Dose Instruction: SHAKE LIQUID AND USE 1 SPRAY IN EACH NOSTRIL EVERY 12 HOURS Rx Instructions: SHAKE LIQUID AND USE 1 SPRAY IN EACH NOSTRIL EVERY 12 HOURS Date of admission: 02/04/25 15:29 Primary Care Provider: Ericka Meyer Admitting Provider: Allyson Brown Attending physician on admission: Allyson Brown Condition: Improved
[2025-02-09 14:30] VITALS: BP 129/72; PULSE 63; RESP 18; TEMP 36.3; O2SAT 98
== END 2025-02-09 18:00 | DRG 281 ==
LOC: ANHED 13:38 → ANHIMU 15:07 → ANH2MED 02-07 21:44
PROVIDERS: Internal Medicine; Nurse Practitioner Gerontology; Admitting Provider Family Medicine; Emergency Provider Emergency Medicine; PCP Family Medicine; Visit Provider Family Medicine
DX: I21.4 Non-ST elevation (NSTEMI) myocardial infarction (principal); I48.92 Unspecified atrial flutter; I10 Essential (primary) hypertension; I48.0 Paroxysmal atrial fibrillation; G30.9 Alzheimer's disease, unspecified; F02.80 Dementia in other diseases classified elsewhere, unspecified severity, without behavioral disturbance, psychotic disturbance, mood disturbance, and anxiety; E78.5 Hyperlipidemia, unspecified; Z90.49 Acquired absence of other specified parts of digestive tract; Z85.46 Personal history of malignant neoplasm of prostate
CPT/HCPCS: 36415; 71046; 80048; 80053; 80061; 81001; 83690; 83735; 84443; 84484; 85025; 85027; 85610; 85730; 93005; 93308; 96374; 97161; 97165; 99285; A9270; C8924; G0378; J0616; J1644; Q9957

== ENCOUNTER 2025-05-23 18:00 | Inpatient (IN) | payer MEDICARE, BC, SELFPAY ==
[2025-05-23] VITALS (25 sets, daily range): BP systolic 109–139; BP diastolic 46–103; PULSE 60–134; RESP 14–24; TEMP 36.3–36.4; O2SAT 90–100; BMI 22.3
--- NOTE | ~2025-05-23 | CT_ITS ---
EXAMINATION: CTA chest PE protocol, 05/23/2025 19:00 DISPATCHER SERVICE HISTORY: CP/SOA COMPARISON: No comparisons available. TECHNIQUE: CTA examination is obtained with contrast CTA examination technique is performed with arterial phase of contrast-enhancement. 3-D reconstruction with thin MIP axial and MPR coronal imaging is provided Isovue 300, 92cc injected IV. One or more of the following dose reduction techniques were used: automated exposure control, adjustment of the mA and/or kV according to patient size, use of iterative reconstruction technique. FINDINGS: No significant coronary calcification is present ([id number]) LUNGS: The contrast bolus is adequate, there is no pulmonary embolism identified. No tracheomalacia. No bronchiectasis. Minimal pulmonary fibrotic changes. Minimal emphysematous changes. No areas of bullous formation. Scattered punctate calcified granulomas. HEART AND PERICARDIUM: Mild cardiomegaly. AORTA: Normal caliber aorta.. PULMONARY ARTERIES: No pulmonary embolism ADENOPATHY/MEDIASTINUM: There are calcified mediastinal and hilar lymph nodes noted. LIMITED VIEWS OF THE ABDOMEN: Simple appearing liver cysts the largest right lobe liver 1.5 x 1.5 cm, the largest left lobe liver 2 x 2 cm. Punctate calcified splenic granulomas. OSSEOUS STRUCTURES: No sclerotic or lytic lesions. No acute rib fractures are identified. OVERLYING SOFT TISSUES: Unremarkable. THYROID: The thyroid is unremarkable. IMPRESSION: Negative for pulmonary embolism. No acute process. Incidental findings detailed above Reviewed, dictated and finalized at location P. ATCHER SERVICE
--- NOTE | ~2025-05-23 | CT_ITS ---
EXAMINATION: CT brain & sinus wo con DATE: 05/24/2025 23:01 INDICATION: Dementia. Subdural hygroma. Old stroke. TECHNIQUE: Computed tomography (CT) of the head and paranasal sinuses was performed without intravenous contrast. The mA was adjusted according to patient size. Iterative reconstruction technique was employed. The dose-length product was 1059.33 mGy-cm. COMPARISON: Head CT 05/03/2023 FINDINGS: CT HEAD: There are old infarcts involving left frontal and temporal lobes. There are scattered areas of low attenuation in the cerebral white matter. There is a chronic left subdural fluid collection that is isodense to cerebral spinal fluid with maximum thickness of 12 mm. There is no intracranial hemorrhage, acute infarction, or abnormal intracranial mass lesion. The ventricles are normal in size. There are changes of left-sided craniotomy. There is a trace right mastoid effusion. CT SINUSES: There is mild mucosal thickening in the bilateral frontal and ethmoid sinuses. The sphenoid sinuses are clear. There is mild mucosal thickening in right maxillary sinus. Left maxillary sinus is clear. The ostiomeatal units are patent. There is leftward deviation of the nasal septum. IMPRESSION: 1. 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 2. 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 3. Stable extensive nonspecific cerebral white matter disease, which likely represents chronic small vessel ischemic disease. 4. Mild mucosal thickening in the paranasal sinuses. Reviewed, dictated and finalized at location E. OGRAMMETRIC STEREO COMPILER IMPRESSION: 1. 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 2. 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 3. Stable extensive nonspecific cerebral white matter disease, which likely rep resents chronic small vessel ischemic disease. 4. Mild mucosal thickening in the paranasal sinuses.
--- NOTE | ~2025-05-23 | XR_ITS ---
EXAMINATION: XR chest 1V portable COMPARISON: No comparisons available. HISTORY: chest discomfort FINDINGS: The lungs are clear, no effusion. No pneumothorax. Heart is normal size. Mediastinal and hilar contours are within normal limits. Bony thorax no acute abnormality. Miscellaneous: None Impression: No acute cardiopulmonary abnormality. Reviewed, dictated and finalized at location P. L TANK BUILDER Impression: No acute cardiopulmonary abnormality.
--- NOTE | 2025-05-23 18:01 | ECG_ITS ---
Test Date: 2025-05-23 18:14:23 Measurements Intervals [place] Rate: 116 P: 0 ND: 0 QRS: -9 QRSD: 94 T: 2 QT: 323 QTc: 450 Interpretive Statements ATRIAL FIBRILLATION WITH RAPID VENTRICULAR RESPONSE INCOMPLETE RIGHT BUNDLE BRANCH BLOCK [90+ ms QRS DURATION, TERMINAL R IN V1/V2, 40+ ms S IN I/aVL/V4/V5/V6] ST DEPRESSION, CONSIDER SUBENDOCARDIAL INJURY [0.1+ mV ST DEPRESSION] BORDERLINE ST ELEVATION, V1 V2 ABNORMAL ECG Compared to ECG 02/05/2025 10:16:09 Incomplete right bundle-branch block now present ST (T wave) deviation still present Electronically Signed On 05-24-2025 08:38:51 WIRE STITCHER by Giuliano Hair M.D.
--- NOTE | 2025-05-23 18:09 | ED.GENADULT ---
HPI - General Adult General Chief complaint: Chest Pain <Nick Sanders MD - Last Filed: 05/23/25 19:03> Stated complaint: CP x 30 min <Nick Sanders MD - Last Filed: 05/23/25 19:03> Time Seen by Provider: 05/23/25 18:02 <Nick Sanders MD - Last Filed: 05/23/25 19:03> History of Present Illness HPI narrative: Patient is an 89-year-old male who presents ER with chest pain. Patient has dementia and cannot provide any history as to what occurred at his fdc. He did happen to received 3 nitroglycerins prior to care with EMS and his blood pressure was in the 80s. He has since recovered. He continues to remain in AFib with RVR. Chart review shows history of irregular heartbeat but no rate control medications. Patient is a do distress this time and took denies any complaints of chest pain or dyspnea. He has no nausea or vomiting. <Nick Sanders MD - Last Filed: 05/23/25 19:03> Related Data Home medications: Home Medications ?Medication ?Instructions ?Recorded ?Confirmed ?Last Taken ?Type aspirin 325 mg tablet,delayed 325 mg PO QHS 02/04/25 05/23/25 Unknown History release cyanocobalamin (vitamin B-12) 500 500 mcg PO HS 02/04/25 05/23/25 Unknown History mcg tablet memantine 28 mg capsule 28 mg PO QHS 02/04/25 05/23/25 Unknown History sprinkle,extended release 24hr omeprazole 20 mg capsule,delayed 20 mg PO QHS 02/04/25 05/23/25 Unknown History release terazosin 2 mg capsule 2 mg PO QHS 02/04/25 05/23/25 Unknown History docusate sodium 100 mg capsule 100 mg PO BID PRN constipation 05/23/25 05/23/25 Unknown History losartan 50 mg tablet 50 mg PO QHS 05/23/25 05/23/25 Unknown History nitroglycerin 0.4 mg sublingual 0.4 mg sublingual Q5MIN PRN Chest 05/23/25 05/23/25 05/23/25 History tablet (Nitrostat) Pain <Nick Sanders MD - Last Filed: 05/23/25 19:03> Allergies/adverse reactions: Allergies Allergy/AdvReac Type Severity Reaction Status Date / Time Penicillins Allergy Mild Unknown Verified 05/23/25 22:31 <Nick Sanders MD - Last Filed: 05/23/25 19:03> Review of Systems Review of Systems: ROS unobtainable: Yes unobtainable due to mental status <Nick Sanders MD - Last Filed: 05/23/25 19:03> [facility] Past Medical History Medical History: Medical History (Updated 05/23/25 @ 19:03 by Nick Sanders MD) Atrial fibrillation with rapid ventricular response Dementia of the Alzheimer's type Gastric ulcer IBS (irritable bowel syndrome) Heart disease Anxiety Seasonal allergies Prostate cancer (2008) Status post radiation. Hyperlipidemia Hypertension <Nick Sanders MD - Last Filed: 05/23/25 19:03> Surgical History Surgical History: Surgical History History of cholecystectomy History of craniotomy (1980) Resection benign cyst. <Nick Sanders MD - Last Filed: 05/23/25 19:03> Family History Family History: Family History Mother Depression Cerebrovascular accident Thyroid disorder Sibling Asthma Heart disease Other Hypertension <Nick Sanders MD - Last Filed: 05/23/25 19:03> Social History Social History: Social History (Updated 02/24/25 @ 09:07 by Rita Whitley MA) Social History: Surrogate medical decision maker: Landon Roberson (son). Code status: Full code. Alcohol intake: current Substance use: never Do You Feel Safe in your Home?: Yes Lack of Transportation: No Lack of Food: Never True Current Housing: I Have Housing Concerned About Future Housing: No Difficulty Paying Gas/Electric Bills: No Difficulty Paying for Meds: No Currently Unemployed: No Education: Decline to Answer Difficulty w/ Childcare or Family Care: No Additional living arrangements comments: Lives in [place]. lives at [place]. Son Landon lives next door. Additional occupation/education comments: Retired from [employer]. Spiritual care concerns: No <Nick Sanders MD - Last Filed: 05/23/25 19:03> Exam Narrative: GENERAL: Well-appearing, well-nourished, and in no acute distress. HEAD: Normocephalic, atraumatic. ENT: Mucous membranes moist. CHEST: Clear to auscultation. No respiratory distress. HEART: Irregularly irregular rate and rhythm that is tachycardic. Normal peripheral pulses. ABDOMEN: Soft, nontender, nondistended. EXTREMITIES: Normal range of motion. No edema. SKIN: Warm, dry, no rash. NEURO: Alert and oriented to self and being in hospital. PSYCH: Normal mood and affect. <Nick Sanders MD - Last Filed: 05/23/25 19:03> Course Course Emergency Course: Moderate improvement in heart rate with IV diltiazem. Will give additional 12.5 mg metoprolol p.o.. Patient still reports he just feels uncomfortable. Will perform CT rule out PE. Will need admission for observation for his chest pain and rate control. Care transferred to Dr. Painting. Trop elevated, ekg repeated, deeper t-waves V1-2. Heparing to be started. <Nick Sanders MD - Last Filed: 05/23/25 19:03> Vital Signs Vital signs: Vital Signs Temperature 97.6 F 05/23/25 17:48 Pulse Rate 124 H 05/23/25 17:48 Respiratory Rate 15 05/23/25 17:48 Blood Pressure 123/103 H 05/23/25 17:48 Pulse Oximetry 95 05/23/25 17:48 Oxygen Delivery Room Air 05/23/25 17:48 Temperature 97.6 F 05/23/25 17:48 Pulse Rate 60 05/23/25 21:46 Respiratory Rate 16 05/23/25 21:46 Blood Pressure 121/75 05/23/25 21:46 Pulse Oximetry 95 05/23/25 21:46 Oxygen Delivery Room Air 05/23/25 18:22 <Nick Sanders MD - Last Filed: 05/23/25 19:03> Vital Signs Temperature 97.6 F 05/23/25 17:48 Pulse Rate 124 H 05/23/25 17:48 Respiratory Rate 15 05/23/25 17:48 Blood Pressure 123/103 H 05/23/25 17:48 Pulse Oximetry 95 05/23/25 17:48 Oxygen Delivery Room Air 05/23/25 17:48 Temperature 97.6 F 05/23/25 17:48 Pulse Rate 60 05/23/25 21:46 Respiratory Rate 16 05/23/25 21:46 Blood Pressure 121/75 05/23/25 21:46 Pulse Oximetry 95 05/23/25 21:46 Oxygen Delivery Room Air 05/23/25 18:22 <Сергей Painting DO - Last Filed: 05/23/25 22:32> Medical Decision Making MDM Narrative Medical decision making narrative: CTA chest negative. Patient on heparin drip. Heart rate in the 90s. Patient will require admission for NSTEMI and AFib with RVR. Case was discussed with Dr. Hair, cardiology, will see the patient as a consult. Discussed case with hospitalist, Dr. Mckeon will admit the patient. <Сергей Painitng DO - Last Filed: 05/23/25 22:32> Differential Diagnosis Differential Diagnosis: ACS, arrhythmia, PE, pneumonia, pneumothorax. <Nick Sanders MD - Last Filed: 05/23/25 19:03> Vital Signs Vital Signs: Vital Signs Temperature 97.6 F 05/23/25 17:48 Pulse Rate 124 H 05/23/25 17:48 Respiratory Rate 15 05/23/25 17:48 Blood Pressure 123/103 H 05/23/25 17:48 Pulse Oximetry 95 05/23/25 17:48 Oxygen Delivery Room Air 05/23/25 17:48 Temperature 97.6 F 05/23/25 17:48 Pulse Rate 60 05/23/25 21:46 Respiratory Rate 16 05/23/25 21:46 Blood Pressure 121/75 05/23/25 21:46 Pulse Oximetry 95 05/23/25 21:46 Oxygen Delivery Room Air 05/23/25 18:22 <Nick Sanders MD - Last Filed: 05/23/25 19:03> Vital Signs Temperature 97.6 F 05/23/25 17:48 Pulse Rate 124 H 05/23/25 17:48 Respiratory Rate 15 05/23/25 17:48 Blood Pressure 123/103 H 05/23/25 17:48 Pulse Oximetry 95 05/23/25 17:48 Oxygen Delivery Room Air 05/23/25 17:48 Temperature 97.6 F 05/23/25 17:48 Pulse Rate 60 05/23/25 21:46 Respiratory Rate 16 05/23/25 21:46 Blood Pressure 121/75 05/23/25 21:46 Pulse Oximetry 95 05/23/25 21:46 Oxygen Delivery Room Air 05/23/25 18:22 <Серегй Painting DO - Last Filed: 05/23/25 22:32> Lab Data Lab results reviewed: Yes I reviewed the patient's lab results. <Nick Sanders MD - Last Filed: 05/23/25 19:03> Result diagrams: 05/23/25 18:10 05/23/25 18:10 <Nick Sanders MD - Last Filed: 05/23/25 19:03> Labs: Lab Results 05/23/25 Range/Units 18:10 WBC 6.6 (4.5-10.0) K/mm3 RBC 3.83 L (4.6-6.20) M/mm3 Hgb 12.7 L (14.0-18.0) g/dL Hct 38.5 L (42.0-52.0) % MCV 100.5 H (80-100) fl MCH 33.2 (26-34) pg MCHC 33.0 (32-36) g/dl RDW 12.9 (11.5-14.5) % Plt Count 158 (150-375) k/mm3 MPV 9.4 (7.4-10.4) fl Immature Gran % (Auto) 0.3 (0-0.5) % Neut % (Auto) 80.7 H (45.5-73.1) % Lymph % (Auto) 13.0 L (18.3-44.2) % [place] % (Auto) 5.3 (2.6-8.5) % Eos % (Auto) 0.5 (0-4.4) % Baso % (Auto) 0.2 (0.2-1.2) % Lymph # (Auto) 0.86 L (0.9-3.2) K/mm3 [place] # (Auto) 0.4 (0.1-0.6) K/mm3 Eos # (Auto) 0.0 (0-0.3) K/mm3 Baso # (Auto) 0.0 (0.0-0.1) K/mm3 Abs Immat Gran (auto) 0.02 (0.00-0.031) K/mm3 Absolute Neuts (auto) 5.4 (1.3-6.7) K/mm3 Absolute Nucleated RBC 0.000 (0.0-0.012) K/mm3 Nucleated RBC % 0.0 (0.0-0.2) % PT 14.7 (11.1-14.7) Seconds INR 1.1 APTT 28.3 (22.3-36.8) Seconds Sodium 134 L (137-145) mmol/L Potassium 4.0 (3.4-5.0) mmol/L Chloride 104 (98-107) mmol/L Carbon Dioxide 24 (22-30) mmol/L Anion Gap 6 (4-12) mmol/L BUN 14 D (9-20) mg/dL Creatinine 0.83 (0.7-1.3) mg/dL Estim Creat Clear Calc 53 ml/min Estimated GFR > 60 (59 - ) Glucose 153 H (65-110) mg/dL Calcium 9.1 (8.4-10.2) mg/dL Total Bilirubin 0.7 (0.2-1.3) mg/dL AST 39 (17-59) U/L ALT 28 (6-50) U/L Alkaline Phosphatase 37 L (38-126) U/L Troponin I 2.220 H* (0.000-0.034) ng/mL Total Protein 6.2 L (6.3-8.2) g/dL Albumin 3.7 (3.5-5.1) g/dL Lipase 44 (23-300) U/L <Nick Sanders MD - Last Filed: 05/23/25 19:03> Lab Results 05/23/25 Range/Units 18:10 WBC 6.6 (4.5-10.0) K/mm3 RBC 3.83 L (4.6-6.20) M/mm3 Hgb 12.7 L (14.0-18.0) g/dL Hct 38.5 L (42.0-52.0) % MCV 100.5 H (80-100) fl MCH 33.2 (26-34) pg MCHC 33.0 (32-36) g/dl RDW 12.9 (11.5-14.5) % Plt Count 158 (150-375) k/mm3 MPV 9.4 (7.4-10.4) fl Immature Gran % (Auto) 0.3 (0-0.5) % Neut % (Auto) 80.7 H (45.5-73.1) % Lymph % (Auto) 13.0 L (18.3-44.2) % [place] % (Auto) 5.3 (2.6-8.5) % Eos % (Auto) 0.5 (0-4.4) % Baso % (Auto) 0.2 (0.2-1.2) % Lymph # (Auto) 0.86 L (0.9-3.2) K/mm3 [place] # (Auto) 0.4 (0.1-0.6) K/mm3 Eos # (Auto) 0.0 (0-0.3) K/mm3 Baso # (Auto) 0.0 (0.0-0.1) K/mm3 Abs Immat Gran (auto) 0.02 (0.00-0.031) K/mm3 Absolute Neuts (auto) 5.4 (1.3-6.7) K/mm3 Absolute Nucleated RBC 0.000 (0.0-0.012) K/mm3 Nucleated RBC % 0.0 (0.0-0.2) % PT 14.7 (11.1-14.7) Seconds INR 1.1 APTT 28.3 (22.3-36.8) Seconds Sodium 134 L (137-145) mmol/L Potassium 4.0 (3.4-5.0) mmol/L Chloride 104 (98-107) mmol/L Carbon Dioxide 24 (22-30) mmol/L Anion Gap 6 (4-12) mmol/L BUN 14 D (9-20) mg/dL Creatinine 0.83 (0.7-1.3) mg/dL Estim Creat Clear Calc 53 ml/min Estimated GFR > 60 (59 - ) Glucose 153 H (65-110) mg/dL Calcium 9.1 (8.4-10.2) mg/dL Total Bilirubin 0.7 (0.2-1.3) mg/dL AST 39 (17-59) U/L ALT 28 (6-50) U/L Alkaline Phosphatase 37 L (38-126) U/L Troponin I 2.220 H* (0.000-0.034) ng/mL Total Protein 6.2 L (6.3-8.2) g/dL Albumin 3.7 (3.5-5.1) g/dL Lipase 44 (23-300) U/L <Сергей Painting DO - Last Filed: 05/23/25 22:32> ECG Data EKG #1: ECG completion date: 05/23/25 <Nick Sanders MD - Last Filed: 05/23/25 19:03> ECG completion time: 18:14 <Nick Sanders MD - Last Filed: 05/23/25 19:03> EKG Interpretation: tachycardia (116), atrial fibrillation, non-specific ST changes, RBBB (incomplete) and normal QT <Nick Sanders MD - Last Filed: 05/23/25 19:03> EKG #2: Attestation: I personally reviewed and interpreted this ECG as follows: <Сергей Painting DO - Last Filed: 05/23/25 22:32> ECG completion date: 05/23/25 <Сергей Painting DO - Last Filed: 05/23/25 22:32> ECG completion time: 18:58 <Сергей Painting DO - Last Filed: 05/23/25 22:32> Interpretation: Who AFib rate of 100, incomplete right bundle-branch block, axis, 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
[2025-05-23 18:20] LABS: Hematocrit 38.5 % (42.0-52.0); Hemoglobin 12.7 g/dL (14.0-18.0); Immature Granulocyte Percent A 0.3 % (0-0.5); Lymphocytes Absolute Auto 0.86 K/mm3 (0.9-3.2); Mean Corpuscular HGB Conc 33.0 g/dl (32-36); Mean Corpuscular Hemoglobin 33.2 pg (26-34); Mean Corpuscular Volume 100.5 fl (80-100); Nucleated Red Blood Cells Absolute Auto 0.000 K/mm3 (0.0-0.012); Nucleated Red Blood Cells Perc 0.0 % (0.0-0.2); Platelet Count Result 158 k/mm3 (150-375); Red Blood Count 3.83 M/mm3 (4.6-6.20); White Blood Count 6.6 K/mm3 (4.5-10.0)
[2025-05-23 18:34] LABS: INR 1.1; Partial Thromboplastin Time 28.3 Seconds (22.3-36.8); Prothrombin Time 14.7 Seconds (11.1-14.7)
[2025-05-23 18:37] LABS: Alanine Aminotransferase 28 U/L (6-50); Albumin Level 3.7 g/dL (3.5-5.1); Alkaline Phosphatase 37 U/L (38-126); Anion Gap 6 mmol/L (4-12); Aspartate Amino Transferase 39 U/L (17-59); Bilirubin,Total 0.7 mg/dL (0.2-1.3); Blood Urea Nitrogen 14 mg/dL (9-20); Calcium 9.1 mg/dL (8.4-10.2); Carbon Dioxide 24 mmol/L (22-30); Chloride 104 mmol/L (98-107); Estimated CRCL calculation 53 ml/min; Estimated Glomerular Filt Rate > 60; Glucose 153 mg/dL (65-110); Lipase 44 U/L (23-300); Potassium 4.0 mmol/L (3.4-5.0); Sodium 134 mmol/L (137-145); Total Protein 6.2 g/dL (6.3-8.2)
[2025-05-23 18:55] LABS: Troponin I 2.220 ng/mL (0.000-0.034)
--- NOTE | 2025-05-23 18:56 | ECG_ITS ---
Test Date: 2025-05-23 18:58:50 Measurements Intervals [place] Rate: 100 P: 0 [place]: 0 QRS: -18 QRSD: 91 T: 14 QT: 367 QTc: 474 Interpretive Statements ATRIAL FIBRILLATION WITH RAPID VENTRICULAR RESPONSE INCOMPLETE RIGHT BUNDLE BRANCH BLOCK [90+ ms QRS DURATION, TERMINAL R IN V1/V2, 40+ ms S IN I/aVL/V4/V5/V6] MINIMAL VOLTAGE CRITERIA FOR LVH, CONSIDER NORMAL VARIANT [MEETS CRITERIA IN ONE OF: R(aVL), S(V1), R(V5), R(V5/V6)+S(V1)] INFERIOR MYOCARDIAL INFARCTION , PROBABLY OLD [40+ ms Q WAVE AND/OR ST/T ABNORMALITY IN II/aVF] MODERATE T-WAVE ABNORMALITY, CONSIDER ANTERIOR ISCHEMIA [-0.1+ mV T-WAVE IN V3/V4] CANNOT RULE OF ANTEROSEPTAL MN, RECENT ABNORMAL ECG Electronically Signed On 05-24-2025 08:40:22 OUTSOLE CEMENTER MACHINE by Giuliano Hair M.D.
[2025-05-23] MEDS: METOPROLOL TARTRATE 12.5 MG TABLET PO (19:57)
[2025-05-23] MEDS: HEPARIN SOD/D5W 100 UNITS/ML 25,000 UNITS/250 ML BAG 9 UNITS IV CONT (19:57)
--- NOTE | 2025-05-23 20:50 | ECG_ITS ---
Test Date: 2025-05-23 20:50:43 Measurements Intervals [place] Rate: 64 P: 26 [place]: 168 QRS: -16 QRSD: 95 T: 11 QT: 448 QTc: 465 Interpretive Statements SINUS RHYTHM WITH FREQUENT SUPRAVENTRICULAR PREMATURE COMPLEXES INCOMPLETE RIGHT BUNDLE BRANCH BLOCK [90+ ms QRS DURATION, TERMINAL R IN V1/V2, 40+ ms S IN I/aVL/V4/V5/V6] MINIMAL VOLTAGE CRITERIA FOR LVH, CONSIDER NORMAL VARIANT [MEETS CRITERIA IN ONE OF: R(aVL), S(V1), R(V5), R(V5/V6)+S(V1)] ST DEVIATION AND MODERATE T-WAVE ABNORMALITY, CONSIDER ANTERIOR ISCHEMIA [-0.1+ mV T-WAVE IN V3/V4] CANNOT RULE OUT ANTEROSEPTAL CA, RECENT ABNORMAL ECG Electronically Signed On 05-24-2025 08:42:25 FIELD INSTRUCTOR by Giuliano Hair M.D.
--- NOTE | 2025-05-23 20:53 | PC.NURSE ---
KWADWO Roberson has been updated.
[2025-05-23 21:24] LABS: Troponin I 3.450 ng/mL (0.000-0.034)
--- NOTE | 2025-05-23 22:27 | ADMGEN ---
This patient, Sincere Roberson, was admitted to IMU Room 202-01. Patient/family oriented to hospital policies and general routines including ID bracelet, bed and alarms, visiting hours, pain management, procedures, bathroom and other care routines, personal items, smoking policy, room service/diet, and visiting hours. Information on how to activate the Rapid Response Team has been discussed. Patient/Family are encouraged to report perceived risks to care and to ask questions if they do not understand what they are told or what they should do.
[2025-05-24] VITALS (15 sets, daily range): BP systolic 126–155; BP diastolic 80–96; PULSE 53–72; RESP 16–20; TEMP 36.3–37.3; O2SAT 97–100
[2025-05-24 00:47] LABS: Troponin I 11.700 ng/mL (0.000-0.034)
--- NOTE | 2025-05-24 01:02 | ECG_ITS ---
Test Date: 2025-05-24 01:09:29 Measurements Intervals [place] Rate: 59 P: 74 [place]: 181 QRS: -17 QRSD: 96 T: 50 QT: 495 QTc: 491 Interpretive Statements SINUS BRADYCARDIA WITH OCCASIONAL ECTOPIC PREMATURE COMPLEXES PROBABLE ANTERIOR MYOCARDIAL INFARCTION [35 ms Q WAVE IN V3/V4],OF INDETERMINATE AGE ANTEROSEPTAL T-WAVE ABNORMALITY RELATED TO ISCHEMIA ABNORMAL ECG Compared to ECG 05/23/2025 20:50:43 Sinus rhythm no longer present Incomplete right bundle-branch block no longer present Myocardial infarct finding still present Electronically Signed On 05-24-2025 08:45:34 CHILD PROTECTIVE SERVICES SOCIAL WORKER by Giuliano Hair M.D.
[2025-05-24 02:54] LABS: Hematocrit 37.5 % (42.0-52.0); Hemoglobin 12.1 g/dL (14.0-18.0); Immature Granulocyte Percent A 0.2 % (0-0.5); Lymphocytes Absolute Auto 1.52 K/mm3 (0.9-3.2); Mean Corpuscular HGB Conc 32.3 g/dl (32-36); Mean Corpuscular Hemoglobin 33.0 pg (26-34); Mean Corpuscular Volume 102.2 fl (80-100); Nucleated Red Blood Cells Absolute Auto 0.000 K/mm3 (0.0-0.012); Nucleated Red Blood Cells Perc 0.0 % (0.0-0.2); Platelet Count Result 161 k/mm3 (150-375); Red Blood Count 3.67 M/mm3 (4.6-6.20); White Blood Count 6.0 K/mm3 (4.5-10.0)
[2025-05-24 03:08] LABS: Partial Thromboplastin Time 105.5 Seconds (22.3-36.8)
--- NOTE | 2025-05-24 04:05 | P.HP_ITS ---
H&P: HPI History of Present Illness Date/Time: 05/24/25 04:05 Chief Complaint: Chest pressure Narrative: 89-year-old male with a past medical history of dementia, BPH, essential hypertension, mild pulmonary hypertension, hyperlipidemia, diastolic dysfunction, paroxysmal atrial fibrillation with prior non STEMI due to demand ischemia from AFib RVR who presented to the ER from [facility] due to chest pressure. The patient reported EMS they were having chest pain across his chest started around 17:00. He denied any eliciting or relieving factors. He did not appear to be any obvious distress. EKG performed by EMS demonstrated AFib with RVR. The patient received 3 doses of nitroglycerin with no improvement in his pain. When he arrived to the ER his blood pressures were low at 80 8/60. Patient did receive 400 mL of normal saline EN route to the hospital. Heart rate was in the 140s to 150s at the half-way facility. Repeat blood pressures after arrival had come up to 120 systolic. And not abscess obtained which demonstrated elevated troponin of 2.2. He was started on heparin drip. He [facility]. He received 1 dose of IV Cardizem with improvement in his heart rate and he subsequently received an additional 12.5 mg of oral metoprolol. By the time patient arrived to the IMU yet converted to a sinus bradycardia. The patient at the time my evaluation actually could not recall why he came to the ER and was only oriented to name and date of (which is a baseline) subsequently the entirety of HPI and medical history was obtained from review of past medical records, ER records and EMS report. Patient was admitted to the hospital in January for similar symptoms. At that time case was discussed with the patient's family and family agreed to medical management. Patient was treated with 48 hours of heparin infusion and discharged on full-dose aspirin therapy with plan to follow-up with his primary furniture refinisher as outpatient. The patient's lowest troponin at the time of prior discharge was 3.69. The patient follows with Dr. Cervantes and was last evaluated in the office in February of 2025. Review of Systems 2 Review of Systems: Review of systems unobtainable due to the patient's baseline dementia. The patient is even having difficulty describing what type of work used to do and has severe difficulty with word finding. [facility] Past Medical History Medical History (Updated 05/24/25 @ 04:53 by Radha Mckeon DO) Paroxysmal atrial fibrillation with rapid ventricular response Atrial fibrillation with rapid ventricular response Dementia of the Alzheimer's type Gastric ulcer IBS (irritable bowel syndrome) Heart disease Anxiety Seasonal allergies Prostate cancer (2008) Status post radiation. Hyperlipidemia Hypertension Surgical History Surgical History (Updated 05/24/25 @ 04:26 by Radha Mckeon DO) History of cholecystectomy History of craniotomy (1980) Resection benign cyst. With chronic left frontotemporal encephalomalacia with overlying fluid collection is been present since March 2016 Family History Family History Mother Depression Cerebrovascular accident Thyroid disorder Sibling Asthma Heart disease Other Hypertension Social History Social History (Updated 05/24/25 @ 04:30 by Radha Mckeon DO) Social History: Surrogate medical decision maker: Landon Roberson (son). Code status: Full code. Second hand tobacco smoke exposure: No Alcohol intake: unknown Substance use: never Substance use type: does not use Do You Feel Safe in your Home?: Yes Lack of Transportation: No Lack of Food: Never True Current Housing: I Have Housing Concerned About Future Housing: No Difficulty Paying Gas/Electric Bills: No Difficulty Paying for Meds: No Currently Unemployed: No Education: Bachelor's Degree Difficulty w/ Childcare or Family Care: No Additional living arrangements comments: Patient is . He lives with his until hospitalization January 2025 at which time he was discharged to [place]. Additional occupation/education comments: Retired from [employer]. Spiritual care concerns: No Meds Home Medications and Allergies Home Medications ?Medication ?Instructions ?Recorded ?Confirmed ?Type fluticasone propionate 50 See Rx Instructions .Route 0 11/06/23 05/23/25 Rx mcg/actuation nasal .COMPLEX #48 grams spray,suspension donepezil 5 mg tablet (Aricept) 5 mg PO QHS #90 tabs 0 12/16/24 05/23/25 Rx aspirin 325 mg tablet,delayed 325 mg PO QHS 02/04/25 1 07/23/24 History release cyanocobalamin (vitamin B-12) 500 500 mcg PO HS 05/23/25 History mcg tablet memantine 28 mg capsule 28 mg PO QHS 02/04/25 History sprinkle,extended release 24hr omeprazole 20 mg capsule,delayed 20 mg PO QHS 02/04/25 05/23/25 History release terazosin 2 mg capsule 2 mg PO QHS 02/04/25 5 History atorvastatin 40 mg tablet 40 mg PO QHS #30 tabs 05/23/25 Rx melatonin 3 mg tablet 3 mg PO HS #30 tabs 02/09/25 05/23/25 Rx docusate sodium 100 mg capsule 100 mg PO BID PRN const ipation 05/23/25 05/23/25 History losartan 50 mg tablet 50 mg PO QHS 05/23/25 History nitroglycerin 0.4 mg sublingual 0.4 mg sublingual Q5MI N PRN Chest 05/23/25 05/23/25 History tablet (Nitrostat) Pain Allergies Allergy/AdvReac Type Severity Reaction Status Date / Time Penicillins Allergy Mild Unknown Verified 05/23/25 22:31 Vital Signs Vital Signs - 24 hr 05/23/25 17:48 05/23/25 18:22 05/23/25 19:27 Temperature 97.6 F Pulse Rate 124 H 104 H Respiratory Rate 15 17 Blood Pressure 123/103 H Pulse Oximetry 95 99 91 Oxygen Delivery Room Air Room Air 05/23/25 19:28 05/23/25 19:29 05/23/25 19:30 Temperature Pulse Rate 103 H 85 110 H Respiratory Rate 20 20 21 H Blood Pressure 116/83 Pulse Oximetry 94 100 100 Oxygen Delivery 05/23/25 19:31 05/23/25 19:45 05/23/25 19:46 Temperature Pulse Rate 100 97 98 Respiratory Rate 16 24 H 24 H Blood Pressure 118/74 122/87 Pulse Oximetry 100 95 Oxygen Delivery 05/23/25 19:57 05/23/25 20:00 05/23/25 20:01 Temperature Pulse Rate 107 H 110 H 100 Respiratory Rate 24 H 19 Blood Pressure 109/96 H Pulse Oximetry Oxygen Delivery 05/23/25 20:15 05/23/25 20:16 05/23/25 20:30 Temperature Pulse Rate 104 H 96 134 H Respiratory Rate 18 18 19 Blood Pressure 139/80 Pulse Oximetry 98 100 98 Oxygen Delivery 05/23/25 20:45 05/23/25 21:00 05/23/25 21:13 Temperature Pulse Rate 97 62 60 Respiratory Rate 14 15 23 H Blood Pressure 125/92 H Pulse Oximetry 96 97 98 Oxygen Delivery 05/23/25 21:15 05/23/25 21:17 05/23/25 21:30 Temperature Pulse Rate 70 60 70 Respiratory Rate 18 18 18 Blood Pressure 114/49 L Pulse Oximetry 97 97 90 Oxygen Delivery 05/23/25 21:32 05/23/25 21:45 05/23/25 21:46 Temperature Pulse Rate 65 60 60 Respiratory Rate 20 14 16 Blood Pressure 113/46 L 121/75 Pulse Oximetry 90 99 95 Oxygen Delivery 05/23/25 22:52 05/24/25 00:00 05/24/25 03:55 Temperature 97.4 F L 97.4 F L 97.6 F Pulse Rate 97 53 L 67 Respiratory Rate 20 19 16 Blood Pressure 139/73 131/84 135/82 Pulse Oximetry 100 100 97 Oxygen Delivery Exam 2 Narrative: Weight 66.6 kg BMI 22.3 Const: Other: No acute distress, well-developed well-nourished HENMT: Other: Mucous membranes are tacky, no oral pharyngeal erythema, fair dentition Eyes: Other: Pupils are equal and reactive, no scleral icterus, no conjunctival pallor, bilateral lens implants noted Neck: Other: No JVD, no lymphadenopathy Resp: Other: Clear to auscultation bilaterally, no increased work of breathing Cardio: Other: Sinus bradycardia,, no murmur, 2+ bilateral radial pedal pulses GI: Other: Soft, nontender, nondistended, positive bowel sounds Skin: Other: No pallor, non jaundice Neuro: Other: Alert oriented. The patient attempts to have conversation but has difficulty with word-finding and is confused except for to his name and date of , he can even state the current 89 year and is completely unaware that he is in a hospital. Extrem: Other: No clubbing, cyanosis or edema Psych: Appearance: grossly normal Speech and movement: Slowed speech present (Psych), Slowed movement present (Neuro) and Restless speech present Affect: normal affect Attitude: cooperative Thought process: Impoverished thought process present Other: Pleasantly confused, cooperative, poor judgment and insight H&P: Results Labs Labs: Laboratory Tests 05/24/25 02:29 05/23/25 18:10 05/23/25 05/23/25 05/24/25 18:10 20:57 00:16 WBC 6.6 RBC 3.83 L Hgb 12.7 L Hct 38.5 L MCV 100.5 H MCH 33.2 MCHC 33.0 RDW 12.9 Plt Count 158 MPV 9.4 Immature Gran % (Auto) 0.3 Neut % (Auto) 80.7 H Lymph % (Auto) 13.0 L [place] % (Auto) 5.3 Eos % (Auto) 0.5 Baso % (Auto) 0.2 Lymph # (Auto) 0.86 L [place] # (Auto) 0.4 Eos # (Auto) 0.0 Baso # (Auto) 0.0 Abs Immat Gran (auto) 0.02 Absolute Neuts (auto) 5.4 Absolute Nucleated RBC 0.000 Nucleated RBC % 0.0 PT 14.7 INR 1.1 APTT 28.3 Sodium 134 L Potassium 4.0 Chloride 104 Carbon Dioxide 24 Anion Gap 6 BUN 14 D Creatinine 0.83 Estim Creat Clear Calc 53 Estimated GFR > 60 Glucose 153 H Calcium 9.1 Total Bilirubin 0.7 AST 39 ALT 28 Alkaline Phosphatase 37 L Troponin I 2.220 H* 3.450 H* D 11.700 H* D Total Protein 6.2 L Albumin 3.7 Lipase 44 05/24/25 02:29 WBC 6.0 RBC 3.67 L Hgb 12.1 L Hct 37.5 L MCV 102.2 H MCH 33.0 MCHC 32.3 RDW 12.9 Plt Count 161 MPV 9.7 Immature Gran % (Auto) 0.2 Neut % (Auto) 66.9 Lymph % (Auto) 25.2 [place] % (Auto) 6.8 Eos % (Auto) 0.7 Baso % (Auto) 0.2 Lymph # (Auto) 1.52 [place] # (Auto) 0.4 Eos # (Auto) 0.0 Baso # (Auto) 0.0 Abs Immat Gran (auto) 0.01 Absolute Neuts (auto) 4.0 Absolute Nucleated RBC 0.000 Nucleated RBC % 0.0 PT INR APTT 105.5 H Sodium Potassium Chloride Carbon Dioxide Anion Gap BUN Creatinine Estim Creat Clear Calc Estimated GFR Glucose Calcium Total Bilirubin AST ALT Alkaline Phosphatase Troponin I Total Protein Albumin Lipase Impressions Chest X-Ray 05/23/25 19:07 Impression: No acute cardiopulmonary abnormality. Chest CTA 05/23/25 19:23 IMPRESSION: Negative for pulmonary embolism. No acute process. Incidental findings of minimal emphysematous and fibrotic changes. Mild cardiomegaly. Calcified mediastinal and hilar lymph nodes. Simple liver cyst. Splenic granulomas. EKG: Initial EKG demonstrated rate 118 with AFib RVR incomplete right bundle- branch block possible inferior infarct, ST depression in lead 2 V1 V2 and reciprocal elevation in AVR. Repeat EKG demonstrated a slightly slower rate but deeper T-wave inversions in V1 V2 but improved ST changes in lead 2 and AVR, 6 hour EKG demonstrated sinus bradycardia with ectopic premature complex, probable anterior NM indeterminate age, QTC 491 Assessment and Plan Assessment and plan (1) Atrial fibrillation with RVR: Code(s): I48.91 - Unspecified atrial fibrillation Status: Acute (2) Non-ST elevation NM (NSTEMI): Code(s): I21.4 - Non-ST elevation (NSTEMI) myocardial infarction Status: Acute (3) CAD (coronary artery disease): Qualifiers: Coronary Disease-Associated Artery/Lesion type: [place] artery [place] vs. transplanted heart: [place] heart Associated angina: with stable angina Q ualified Code(s): I25.118 - Atherosclerotic heart disease of [place] coronary artery with other forms of angina pectoris Code(s): I25.10 - Atherosclerotic heart disease of [place] coronary artery without angina pectoris Status: Acute (4) Dementia: Qualifiers: Dementia type: Alzheimer's Alzheimer's disease onset: late onset D ementia severity: severe Dementia behavioral or psychological symptom: without behavioral, psychotic, or mood disturbance or anxiety Qualified Code(s): G30.1 - Alzheimer's disease with late onset; F02.C0 - Dementia in other diseases classified elsewhere, severe, without behavioral disturbance, psychotic disturbance, mood disturbance, and anxiety Code(s): F03.90 - Unspecified dementia, unspecified severity, without behavioral disturbance, psychotic disturbance, mood disturbance, and anxiety Status: Acute Plan Patient presented with chest pain like he due to waited ischemia from AFib RVR resulting in non STEMI. Patient been placed on a heparin drip will continue patient's home full-dose aspirin. Patient's troponins are still trending upward with current value 11. Will trend peak. Will continue to monitor in IMU. Patient is now back in a sinus rhythm with sinus bradycardia. He is not on any rate controlling medications but did receive metoprolol in the ER. It looks like the patient may have had a history of sinus bradycardia that was symptomatic in the past. Will defer rate versus rhythm controlling medications to Cardiology Service. Initially heart care group was consulted by ER provider but patient cares managed by Dr. Cervantes as outpatient. Consult lower has been changed to Dr. Cervantes. Will provide nitroglycerin sublingual as needed for recurrent pain. Will continue heparin drip per protocol. Will resume home atorvastatin and losartan. The patient does have significant memory impairment from dementia. Will continue home Namenda and Aricept. Thankfully is currently pleasantly confused. Will avoid sedating medications. Will continue terazosin for BPH and home PPI therapy for his known GERD. MEDICAL DECISION MAKING NARRATIVE -Spoke with the ED provider in detail regarding patient's evaluation, workup and management -Patient seen and examined at bedside -Collaborated with patient's nurse at the bedside in detail and addressed all concerns -Labs, electrolytes, radiology, investigations and test results personally reviewed and interpreted unless otherwise specified -ED/Consult/Nursing/Ancilliary notes on the chart reviewed and appreciated -Spoke with patient at bedside and diagnosis and plan of care was discussed. All questions answered. Quality VTE Prophylaxis VTE prophylaxis: pharmacologic ordered (Heparin drip per protocol.) Hospitalist MIPS Advance Care Plan I have confirmed that the patient's Advanced Care Plan is present, code status is documented, or surrogate decision maker is listed in patient medical record.: Yes Medication Reconciliation I have utilized all available resources to obtain, update and review the patients current medications (includes all prescriptions, OTC, herbals, cannabis, and nutritional supplements).: Yes
[2025-05-24 06:47] LABS: Troponin I 20.400 ng/mL (0.000-0.034)
--- NOTE | 2025-05-24 06:48 | ECG_ITS ---
Test Date: 2025-05-24 06:53:44 Measurements Intervals [place] Rate: 59 P: 0 PA: 154 QRS: -17 QRSD: 96 T: 32 QT: 459 QTc: 457 Interpretive Statements SINUS BRADYCARDIA WITH SINUS ARRHYTHMIA INCOMPLETE RIGHT BUNDLE BRANCH BLOCK [90+ ms QRS DURATION, TERMINAL R IN V1/V2, 40+ ms S IN I/aVL/V4/V5/V6] ANTERIOR MYOCARDIAL INFARCTION [40+ ms Q WAVE AND/OR ST/T ABNORMALITY IN V3/V4], OF INDETERMINATE AGE MODERATE T-WAVE ABNORMALITY, CONSIDER ANTEROSEPTAL ISCHEMIA [-0.1+ mV T WAVE IN I/aVL/V5/V6] ABNORMAL ECG Compared to ECG 05/24/2025 01:09:29 Myocardial infarct finding still present T-wave abnormality still present Possible ischemia still present Electronically Signed On 05-24-2025 08:46:38 SPECIAL EDUCATION BUS DRIVER by Giuliano Hair M.D.
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
[2025-05-24 08:58] LABS: Partial Thromboplastin Time 84.1 Seconds (22.3-36.8)
[2025-05-24] MEDS: FLUTICASONE PROPIONATE 0.05% NA SPR 16 GM BTL (*BKC) 1 SPRAY NASAL ×2 (09:26→20:48)
[2025-05-24] MEDS: AMIODARONE HCL 200 MG TABLET PO (09:26)
[2025-05-24 10:25] LABS: Troponin I 23.300 ng/mL (0.000-0.034)
--- NOTE | 2025-05-24 10:49 | PC.NURSE ---
Notified Dr Cervantes of troponin of 23 received order to have next troponin with morning labs along with an EKG. order read back and verified.
[2025-05-24 15:05] LABS: Troponin I 16.900 ng/mL (0.000-0.034)
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
[2025-05-24] MEDS: CYANOCOBALAMIN 500 MCG TABLET PO (20:46)
[2025-05-24] MEDS: ATORVASTATIN 40 MG TABLET PO (20:46)
[2025-05-24] MEDS: MEMANTINE HCL XR 28 MG CAP PO (20:47)
[2025-05-24] MEDS: TERAZOSIN HCL 1 MG CAPSULE 2 MG PO (20:47)
[2025-05-24] MEDS: ASPIRIN 81 MG ENTERIC TABLET PO (20:47)
[2025-05-24] MEDS: LOSARTAN POTASSIUM 50 MG TABLET PO (20:47)
[2025-05-24] MEDS: PANTOPRAZOLE 40 MG TABLET PO (20:48)
[2025-05-24] MEDS: DONEPEZIL HCL 5 MG TABLET PO (20:48)
[2025-05-24] MEDS: MELATONIN 3 MG TABLET PO (20:48)
[2025-05-25] VITALS (13 sets, daily range): BP systolic 112–148; BP diastolic 70–91; PULSE 49–615; RESP 14–20; TEMP 36.3–36.8; O2SAT 95–100
--- NOTE | 2025-05-25 | ECHO_ITS ---
Patient Info Name: Sincere Roberson Age: 89 years : 1935 Gender: Male Ht: 68 in Wt: 150 lbs BSA: 1.81 m2 HR: 61 bpm BP: 135 / 79 mmHg Technical Quality: Good Exam Date: 05/25/2025 1:16 PM Patient Status: I Admit Date: 05/23/2025 Exam Type: CA echo dop color flow w con Complete two-dimensional, color flow and Doppler transthoracic echocardiogram is performed with contrast to opacify the left ventricle and to improve the deliniation of the left ventricle endocardial borders. Staff Referring Physician: Smith Trevino Parking Station Attendant: Isabel Walsh Attending Provider: Radha Mckeon DO Contrast/Agitated Saline Contrast/Ag. Saline: Definity Amount: 3.00 ml Existing IV Access: Yes Summary 1. Definity contrast administered improved wall motion interpretation. 2. Left ventricular chamber dimension is normal. 3. Anteroseptum is mildly hypokinetic. 4. Left ventricular systolic function is mildly reduced, estimated at 45-50. 5. The left ventricular diastolic function is grade I diastolic dysfunction. 6. E/e' 8 is minimally elevated. 7. Left atrial chamber dimension is mildly enlarged. 8. There is trace aortic valve regurgitation. 9. There is trace tricuspid valve regurgitation. 10. No pulmonary hypertension, estimated pulmonary arterial systolic pressure is 32 mmHg. 11. The aortic root size at the sinus of Valsalva is borderline dilated at 4.2 cm. Left Ventricle Left ventricular chamber dimension is normal. Left ventricular systolic function is mildly reduced, estimated at 45-50. The left ventricular diastolic function is grade I diastolic dysfunction. E/e' 8 is minimally elevated. Definity contrast administered improved wall motion interpretation. Anteroseptum is mildly hypokinetic. Right Ventricle Right ventricular chamber dimension is normal. Right ventricular systolic function is normal. Left Atria Left atrial chamber dimension is mildly enlarged. Right Atria Right atrial chamber dimension is normal. Aortic Valve The aortic valve is trileaflet. There is no aortic valve stenosis. There is trace aortic valve regurgitation. Pulmonic Valve There is no pulmonic regurgitation. Mitral Valve There is no mitral valve stenosis. There is no mitral valve regurgitation. Tricuspid Valve There is trace tricuspid valve regurgitation. No pulmonary hypertension, estimated pulmonary arterial systolic pressure is 32 mmHg. Pericardium/Pleural There is no pericardial effusion. Inferior Vena Cava Normal inferior vena cava with >50% collapse upon inspiration consistent with normal right atrial pressure, 5 mmHg. Aorta The aortic root size at the sinus of Valsalva is borderline dilated at 4.2 cm. Left Ventricular Outflow Tract Name Value Normal LVOT 2D LVOT Diameter 2.0 cm LVOT Doppler LVOT Peak Velocity 99 cm/s LVOT Peak Gradient 4 mmHg LVOT Mean Gradient 2 mmHg LVOT VTI 16 cm LVOT VTI/AV VTI Ratio 0.6 LVOT Stroke Volume 52 ml LVOT CO 3.6 l/min LVOT CI 2.0 l/min/m2 Pulmonic Valve Name Value Normal PV Doppler PV Peak Velocity 102 cm/s PV Peak Gradient 4 mmHg Mitral Valve Name Value Normal MV Diastolic Function MV E Peak Velocity 53 cm/s MV A Peak Velocity 80 cm/s MV E/A 0.7 MV Decel Time (PW) 206 ms MV Annular TDI MV E/e' (Septal) 12.9 MV E/e' (Lateral) 10.1 MV E/e' (Average) 11.5 Tricuspid Valve Name Value Normal TV Regurgitation Doppler TR Peak Velocity 258 cm/s TR Peak Gradient 23 mmHg Estimated PAP/RSVP RA Pressure 5 mmHg <=5 PA Systolic Pressure 32 mmHg <36 RV Systolic Pressure 32 mmHg <36 Aorta Name Value Normal Ascending Aorta Ao Root Diameter (MM) 4.0 cm Ao Root Diam Index (MM) 2.2 cm/m2 Aortic Valve Name Value Normal AV Doppler AV Peak Velocity 133 cm/s AV Peak Gradient 7 mmHg AV Mean Gradient 4 mmHg AV VTI 26 cm AV Area (Cont Eq VTI) 2.0 cm2 >=3.0 AV Area (Cont Eq Kevin) 2.4 cm2 AV DI (Kevin) 0.74 AV Regurgitation 2D LVOT Area 3.2 cm2 Ventricles Name Value Normal LV Dimensions 2D/MM IVS Diastolic Thickness (2D) 1.0 cm 0.6-1.0 LVID Diastole (2D) 3.5 cm 4.2-5.8 LVIW Diastolic Thickness (2D) 1.0 cm 0.6-1.0 LVID Systole (2D) 2.4 cm 2.5-4.0 LVOT Diameter 2.0 cm LV Mass (2D Cubed) 103.73 g 88.00-224.00 LV Mass Index (2D Cubed) 57 g/m2 49-115 Relative Wall Thickness (2D) 0.56 <=0.42 LV Fractional Shortening/Ejection Fraction 2D/MM LV Fractional Shortening (2D) 29 % 25-43 LV EF (2D Teichholz) 61 % LV Diastolic Volume (4C MOD) 149 ml LV EF (4C MOD) 53 % LV Diastolic Volume (2C MOD) 133 ml LV EF (2C MOD) 43 % LV Diastolic Volume (BP MOD) 144 ml 62-150 LV Diastolic Volume Index (BP MOD) 80 ml/m2 34-74 LV Systolic Volume (BP MOD) 73 ml 21-61 LV Systolic Volume Index (BP MOD) 41 ml/m2 11-31 LV EF (BP MOD) 49 % 52-72 LV Diastolic Length (4C) 8.7 cm LV Systolic Length (4C) 7.8 cm LV Stroke Volume (4C MOD) 79 ml Atria Name Value Normal LA Dimensions LA Dimension (MM) 3.9 cm 3.0-4.0 LA Volume (4C A-L) 67 ml LA Volume (BP A-L) 71 ml RA Dimensions RA Systolic Major [place] Length (4C) 6.4 cm 2.1-2.7 RA Area (4C) 18.0 cm2 <=18.0 Report Signatures Amended by Miquel Cervantes DO on 05/25/2025 03:24 PM
--- NOTE | 2025-05-25 05:00 | ECG_ITS ---
Test Date: 2025-05-25 05:42:02 Measurements Intervals [place] Rate: 54 P: -7 SC: 126 QRS: -19 QRSD: 96 T: 7 QT: 502 QTc: 477 Interpretive Statements SINUS BRADYCARDIA WITH OCCASIONAL SUPRAVENTRICULAR PREMATURE COMPLEXES INCOMPLETE RIGHT BUNDLE BRANCH BLOCK [90+ ms QRS DURATION, TERMINAL R IN V1/V2, 40+ ms S IN I/aVL/V4/V5/V6] ST DEVIATION AND MODERATE T-WAVE ABNORMALITY, CONSIDER ANTERIOR ISCHEMIA [-0.1+ mV T WAVE IN V3/V4] Compared to ECG 05/24/2025 06:53:44 Sinus arrhythmia no longer present Myocardial infarct finding no longer present T-wave abnormality still present Possible ischemia still present Electronically Signed On 05-26-2025 10:45:04 SQL SERVER ARCHITECT by Gregor Posey M.D.
[2025-05-25 06:43] LABS: Hematocrit 35.8 % (42.0-52.0); Hemoglobin 11.9 g/dL (14.0-18.0); Mean Corpuscular HGB Conc 33.2 g/dl (32-36); Mean Corpuscular Hemoglobin 33.1 pg (26-34); Mean Corpuscular Volume 99.4 fl (80-100); Platelet Count Result 155 k/mm3 (150-375); Red Blood Count 3.60 M/mm3 (4.6-6.20); White Blood Count 4.6 K/mm3 (4.5-10.0)
[2025-05-25 07:04] LABS: Anion Gap 3 mmol/L (4-12); Blood Urea Nitrogen 11 mg/dL (9-20); Calcium 9.0 mg/dL (8.4-10.2); Carbon Dioxide 26 mmol/L (22-30); Chloride 102 mmol/L (98-107); Estimated CRCL calculation 52 ml/min; Estimated Glomerular Filt Rate > 60; Glucose 90 mg/dL (65-110); Magnesium 1.9 mg/dL (1.6-2.3); Potassium 3.9 mmol/L (3.4-5.0); Sodium 131 mmol/L (137-145)
[2025-05-25 07:14] LABS: Troponin I 11.100 ng/mL (0.000-0.034)
--- NOTE | 2025-05-25 07:23 | P.PNCA_ITS ---
Progress Note: A&P Assessment and Plan (1) Atrial fibrillation with RVR: Code(s): I48.91 - Unspecified atrial fibrillation Status: Acute Assessment and Plan: Back in sinus rhythm. On aspirin 325 mg daily. Started low dose Amiodarone 200 mg daily due to potential risk of QT prolongation with Aricept. Monitor EKG daily while hospitalized. Due to risk of falls and with subdural hygroma, will leave on aspirin rather than start anticoagulation. This was agreed by his POA, Rafa Roberson. Appreciate neurology note. (2) Non-ST elevation [place] (NSTEMI): Code(s): I21.4 - Non-ST elevation (NSTEMI) myocardial infarction Status: Acute Assessment and Plan: Probably exacerbated by demand ischemia from rapid atrial fibrillation. He does have T wave inversions this time s/o coronary ischemia. On heparin drip until troponin peaks. Need to keep him in sinus rhythm to prevent chest pain and ischemia. Discussed on 05/24/25 at length with his son, Rafa RobersonKWADWO, about his situation, and he is in agreement with conservative medical management given dementia and subdural hygroma. He agrees to add antiarrhythmic medication to maintain sinus rhythm, and to obtain neurology consult to decide on aspirin vs Eliquis and which is OK and safe to be on. Obtain echo. (3) Hypertension: Code(s): I10 - Essential (primary) hypertension Status: Acute Assessment and Plan: Stable. (4) Hyperlipidemia: Code(s): E78.5 - Hyperlipidemia, unspecified Status: Acute Assessment and Plan: On Atorvastatin. (5) Dementia: Qualifiers: Dementia type: Alzheimer's Alzheimer's disease onset: late onset Dementia severity: severe Dementia behavioral or psychological symptom: without behavioral, psychotic, or mood disturbance or anxiety Qualified Code(s): G30.1 - Alzheimer's disease with late onset; F02.C0 - Dementia in other diseases classified elsewhere, severe, without behavioral disturbance, psychotic disturbance, mood disturbance, and anxiety Code(s): F03.90 - Unspecified dementia, unspecified severity, without behavioral disturbance, psychotic disturbance, mood disturbance, and anxiety Status: Acute Assessment and Plan: Advanced. (6) Subdural hygroma: Code(s): G96.08 - Other cranial cerebrospinal fluid leak Status: Acute Assessment and Plan: Appreciate Neurology note. Subjective Date/time seen: 05/25/25 07:23 Interval history: Denies chest pain or sob. Exam Const: General: cooperative, healthy appearing and comfortable Orie ntation/consciousness: oriented to person, oriented to place and oriented to time Resp: Auscultation: clear to auscultation bilaterally, no crackles, no rales, no rhonchi and no wheezes Cardio: Rate: regular rate Rhythm: regular rhythm Heart sounds: no murmurs Peripheral pulses: dorsalis pedis present Neuro: General: oriented to person, oriented to place and oriented to time Extrem: Right lower extremity: no edema Left lower extremity: no edema Objective Data Vital Signs Vital Signs: Vital Signs - 24 hr 05/24/25 08:00 05/24/25 08:00 05/24/25 08:00 Temperature 97.5 F L Pulse Rate 60 56 L Respiratory Rate 20 Blood Pressure 151/91 H Pulse Oximetry 100 Oxygen Delivery Room Air 05/24/25 09:26 05/24/25 10:00 05/24/25 12:00 Temperature 99.2 F Pulse Rate 65 69 68 Respiratory Rate 18 Blood Pressure 155/96 H Pulse Oximetry 97 Oxygen Delivery 05/24/25 12:00 05/24/25 12:00 05/24/25 14:00 Temperature Pulse Rate 72 59 L Respiratory Rate Blood Pressure Pulse Oximetry Oxygen Delivery Room Air 05/24/25 16:00 05/24/25 16:00 05/24/25 17:23 Temperature 98.9 F Pulse Rate 65 57 L Respiratory Rate 17 Blood Pressure 126/80 Pulse Oximetry 100 Oxygen Delivery Room Air 05/24/25 18:00 05/24/25 19:43 05/24/25 20:00 Temperature 97.7 F Pulse Rate 63 64 Respiratory Rate 17 Blood Pressure 143/85 H Pulse Oximetry 99 Oxygen Delivery Room Air 05/24/25 20:00 05/24/25 22:00 05/24/25 22:45 Temperature Pulse Rate 61 60 Respiratory Rate Blood Pressure Pulse Oximetry 99 Oxygen Delivery Room Air 05/25/25 00:00 05/25/25 00:00 05/25/25 00:00 Temperature 98.0 F Pulse Rate 55 L 58 L Respiratory Rate 16 Blood Pressure 133/77 Pulse Oximetry 99 Oxygen Delivery Room Air 05/25/25 02:00 05/25/25 04:00 05/25/25 04:00 Temperature 97.7 F Pulse Rate 51 L 55 L Respiratory Rate 14 Blood Pressure 135/79 Pulse Oximetry 96 Oxygen Delivery Room Air 05/25/25 04:00 05/25/25 06:00 Temperature Pulse Rate 49 L 51 L Respiratory Rate Blood Pressure Pulse Oximetry Oxygen Delivery Intake/Output Intake/Output: Intake & Output 05/22/25 05/23/25 05/24/25 05/25/25 23:59 23:59 23:59 23:59 Intake Total 430 200 Output Total 225 30 Balance 205 170 Meds/Results Medications: Active Medications Generic Name Dose Route Start Last Admin Trade Name Freq PRN Reason Stop Dose Admin Amiodarone HCl 200 mg 05/24/25 08:40 05/24/25 09:26 Amiodarone Hcl 200 Mg Tablet PO 200 mg DAILY@0800 KENAN Administration Aspirin 325 mg 05/25/25 09:00 Aspirin 325 Mg Enteric Tablet PO QAM [facility] Atorvastatin Calcium 40 mg 05/24/25 21:00 05/24/25 20:46 Atorvastatin 40 Mg Tablet PO 40 mg QHS [facility] Administration Cyanocobalamin 500 mcg 05/24/25 21:00 05/24/25 20:46 Cyanocobalamin 500 Mcg Tablet PO 500 mcg HS [facility] Administration Docusate Sodium 100 mg 05/24/25 04:08 Docusate Sodium 100 Mg Capsule PO BID PRN Constipation Donepezil HCl 5 mg 05/24/25 21:00 05/24/25 20:48 Donepezil Hcl 5 Mg Tablet PO 5 mg QHS KENAN Administration Fluticasone Propionate 1 spray 05/24/25 09:00 05/24/25 20:48 Fluticasone Propionate 0.05% Na Spr 16 Gm Btl (*Bkc) NASAL 1 spray Q12HR KENAN Administration Losartan Potassium 50 mg 05/24/25 21:00 05/24/25 20:47 Losartan Potassium 50 Mg Tablet PO 50 mg QHS KENAN Administration Melatonin 3 mg 05/24/25 21:00 05/24/25 20:48 Melatonin 3 Mg Tablet PO 3 mg HS KENAN Administration Memantine 28 mg 05/24/25 21:00 05/24/25 20:47 Memantine Hcl Xr 28 Mg Cap PO 28 mg QHS KENAN Administration Nitroglycerin 0.4 mg 05/24/25 04:08 Nitroglycerin Sl 0.4 Mg Tablet SUBLINGUAL Q5MIN PRN Chest Pain Pantoprazole Sodium 40 mg 05/24/25 21:00 05/24/25 20:48 Pantoprazole 40 Mg Tablet PO 40 mg QHS KENAN Administration Perflutren Lipid Microsphere 0 ml 05/24/25 07:42 Perflutren Lipid Microspheres 1.5 Ml Vial Diluted To 10 Ml Total Volume IV PUSH 05/27/25 07:42 ONCE PRN adequate visualization Protocol Terazosin HCl 2 mg 05/24/25 21:00 05/24/25 20:47 Terazosin Hcl 1 Mg Capsule PO 2 mg QHS KENAN Administration Radiology Results: ITS Impressions Chest X-Ray 05/23/25 19:07 Impression: No acute cardiopulmonary abnormality. Chest CTA 05/23/25 19:23 IMPRESSION: Negative for pulmonary embolism. No acute process. Incidental findings detailed above Labs Labs: Laboratory Results - last 24 hr 05/24/25 05/24/25 05/25/25 08:32 13:57 06:26 WBC 4.6 RBC 3.60 L Hgb 11.9 L Hct 35.8 L MCV 99.4 MCH 33.1 MCHC 33.2 RDW 12.8 Plt Count 155 MPV 9.7 APTT 84.1 H Sodium 131 L Potassium 3.9 Chloride 102 Carbon Dioxide 26 Anion Gap 3 L BUN 11 Creatinine 0.85 Estim Creat Clear Calc 52 Estimated GFR > 60 Glucose 90 Calcium 9.0 Magnesium 1.9 Troponin I 23.300 H* 16.900 H* D 11.100 H*
[2025-05-25] MEDS: FLUTICASONE PROPIONATE 0.05% NA SPR 16 GM BTL (*BKC) 1 SPRAY NASAL ×2 (07:59→20:41)
[2025-05-25] MEDS: ASPIRIN 325 MG ENTERIC TABLET PO (07:59)
[2025-05-25] MEDS: AMIODARONE HCL 200 MG TABLET PO (07:59)
--- NOTE | 2025-05-25 09:57 | PC.NURSE ---
At approximately 0800am this RN went into the room to assess patient and to give medications as ordered. The patient breakfast tray was sitting in front of him. It was clear that he was unaware what to do with the things on the tray. As he was taking off the packaged products and placing them in his lap. This RN assisted the patient with his tray and instructed him that it was ok to eat. The food was placed directly in front of him and packages opened up as needed. Patient did begin to eat. This RN is writing this to show the significance of his confusion and that he clearly needed full assistance with being told he could eat.
--- NOTE | 2025-05-25 10:17 | PM.IMPN ---
Progress Note: A&P Assessment and Plan (1) Non-ST elevation [place] (NSTEMI): Code(s): I21.4 - Non-ST elevation (NSTEMI) myocardial infarction Status: Acute (2) CAD (coronary artery disease): Qualifiers: Coronary Disease-Associated Artery/Lesion type: [place] artery [place] vs. transplanted heart: [place] heart Associated angina: with stable angina Qualified Code(s): I25.118 - Atherosclerotic heart disease of [place] coronary artery with other forms of angina pectoris Code(s): I25.10 - Atherosclerotic heart disease of [place] coronary artery without angina pectoris Status: Acute (3) Hypertension: Code(s): I10 - Essential (primary) hypertension Status: Acute (4) Atrial fibrillation with RVR: Code(s): I48.91 - Unspecified atrial fibrillation Status: Acute (5) Subdural hygroma: Code(s): G96.08 - Other cranial cerebrospinal fluid leak Status: Acute (6) Dementia: Qualifiers: Dementia type: Alzheimer's Alzheimer's disease onset: late onset Dementia severity: severe Dementia behavioral or psychological symptom: without behavioral, psychotic, or mood disturbance or anxiety Qualified Code(s): G30.1 - Alzheimer's disease with late onset; F02.C0 - Dementia in other diseases classified elsewhere, severe, without behavioral disturbance, psychotic disturbance, mood disturbance, and anxiety Code(s): F03.90 - Unspecified dementia, unspecified severity, without behavioral disturbance, psychotic disturbance, mood disturbance, and anxiety Status: Acute (7) Hyperlipidemia: Code(s): E78.5 - Hyperlipidemia, unspecified Status: Acute Plan 89-year-old male presents from [facility] due to chest pressure. 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 ----- AFib with RVR: Cardiology recommendations noted. Started on amiodarone 200 mg p.o. q.day due to potential risk of QT prolongation with Aricept. Monitor daily EKGs. Telemetry reviewed on 05/25/2025, flips between AFib in sinus rhythm but currently sinus rhythm. EKG reviewed, sinus bradycardia with PAC, QTC 477. Cardiology and POA Rafa Roberson have decided to leave patient on aspirin 325 mg p.o. q.day rather than start anticoagulation as the patient is a fall risk and has the subdural hygroma. Neurology note appreciated. NSTEMI: Placed on heparin on admission, since discontinued when troponin peaked. No chest pain or shortness of breath since admission. Cardiology and patient's POA decided conservative management given dimension subdural hygroma. Pending echocardiogram. Hypertension: Stable, continue to monitor Hyperlipidemia: Continue [employer] atorvastatin Dementia: Advanced. No acute issues. Continue memantine. ----- Full code. Ambulate with assistance, fall precautions. SCDs. Heart healthy diet. Saline lock IV. 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 Stable in IMU. Subjective Date/time seen: 05/25/25 10:17 Interval history: No major acute overnight events. Patient is pleasantly confused, he has no complaints. No report of chest pain or shortness of breath. Review of Systems Review of Systems: All systems reviewed & are unremarkable except as noted in HPI and below (Subjective) Exam Const: General: comfortable and no acute distress Other: Pleasantly confused Eyes: Pupils: Equal, round and reactive pupils present Neck: Neck: supple Resp: Effort & Inspection: normal respiratory effort Auscultation: clear to auscultation bilaterally Cardio: Rate: regular rate Rhythm: regular rhythm GI: GI Palp: Yes Soft to palpation Neuro: Motor exam (neuro): 5/5 motor strength present throughout Extrem: General: no edema Objective Data Vital Signs Vital Signs: Vital Signs - 24 hr 05/24/25 12:00 05/24/25 12:00 05/24/25 12:00 Temperature 99.2 F Pulse Rate 68 72 Respiratory Rate 18 Blood Pressure 155/96 H Pulse Oximetry 97 Oxygen Delivery Room Air 05/24/25 14:00 05/24/25 16:00 05/24/25 16:00 Temperature 98.9 F Pulse Rate 59 L 65 57 L Respiratory Rate 17 Blood Pressure 126/80 Pulse Oximetry 100 Oxygen Delivery 05/24/25 17:23 05/24/25 18:00 05/24/25 19:43 Temperature 97.7 F Pulse Rate 63 64 Respiratory Rate 17 Blood Pressure 143/85 H Pulse Oximetry 99 Oxygen Delivery Room Air 05/24/25 20:00 05/24/25 20:00 05/24/25 22:00 Temperature Pulse Rate 61 60 Respiratory Rate Blood Pressure Pulse Oximetry Oxygen Delivery Room Air 05/24/25 22:45 05/25/25 00:00 05/25/25 00:00 Temperature Pulse Rate 55 L Respiratory Rate Blood Pressure Pulse Oximetry 99 Oxygen Delivery Room Air Room Air 05/25/25 00:00 05/25/25 02:00 05/25/25 04:00 Temperature 98.0 F Pulse Rate 58 L 51 L Respiratory Rate 16 Blood Pressure 133/77 Pulse Oximetry 99 Oxygen Delivery Room Air 05/25/25 04:00 05/25/25 04:00 05/25/25 06:00 Temperature 97.7 F Pulse Rate 55 L 49 L 51 L Respiratory Rate 14 Blood Pressure 135/79 Pulse Oximetry 96 Oxygen Delivery 05/25/25 07:59 05/25/25 08:00 05/25/25 08:00 Temperature 98.2 F Pulse Rate 65 103 H 63 Respiratory Rate 20 20 Blood Pressure 141/88 H Pulse Oximetry 100 100 Oxygen Delivery Room Air 05/25/25 08:00 05/25/25 10:00 Temperature Pulse Rate 63 79 Respiratory Rate Blood Pressure Pulse Oximetry Oxygen Delivery Intake/Output Intake/Output: Intake & Output 05/22/25 05/23/25 05/24/25 05/25/25 23:59 23:59 23:59 23:59 Intake Total 430 200 Output Total 225 30 Balance 205 170 Meds/Results Medications: Active Medications Generic Name Dose Route Start Last Admin Trade Name Freq PRN Reason Stop Dose Admin Amiodarone HCl 200 mg 05/24/25 08:40 05/25/25 07:59 Amiodarone Hcl 200 Mg Tablet PO 200 mg DAILY@0800 [facility] Administration Aspirin 325 mg 05/25/25 09:00 05/25/25 07:59 Aspirin 325 Mg Enteric Tablet PO 325 mg QAM [facility] Administration Atorvastatin Calcium 40 mg 05/24/25 21:00 05/24/25 20:46 Atorvastatin 40 Mg Tablet PO 40 mg QHS [facility] Administration Cyanocobalamin 500 mcg 05/24/25 21:00 05/24/25 20:46 Cyanocobalamin 500 Mcg Tablet PO 500 mcg HS KENAN Administration Docusate Sodium 100 mg 05/24/25 04:08 Docusate Sodium 100 Mg Capsule PO BID PRN Constipation Donepezil HCl 5 mg 05/24/25 21:00 05/24/25 20:48 Donepezil Hcl 5 Mg Tablet PO 5 mg QHS KENAN Administration Fluticasone Propionate 1 spray 05/24/25 09:00 05/25/25 07:59 Fluticasone Propionate 0.05% Na Spr 16 Gm Btl (*Bkc) NASAL 1 spray Q12HR KENAN Administration Losartan Potassium 50 mg 05/24/25 21:00 05/24/25 20:47 Losartan Potassium 50 Mg Tablet PO 50 mg QHS KENAN Administration Melatonin 3 mg 05/24/25 21:00 05/24/25 20:48 Melatonin 3 Mg Tablet PO 3 mg HS EKNAN Administration Memantine 28 mg 05/24/25 21:00 05/24/25 20:47 Memantine Hcl Xr 28 Mg Cap PO 28 mg QHS KENAN Administration Nitroglycerin 0.4 mg 05/24/25 04:08 Nitroglycerin Sl 0.4 Mg Tablet SUBLINGUAL Q5MIN PRN Chest Pain Pantoprazole Sodium 40 mg 05/24/25 21:00 05/24/25 20:48 Pantoprazole 40 Mg Tablet PO 40 mg QHS KENAN Administration Perflutren Lipid Microsphere 0 ml 05/24/25 07:42 Perflutren Lipid Microspheres 1.5 Ml Vial Diluted To 10 Ml Total Volume IV PUSH 05/27/25 07:42 ONCE PRN adequate visualization Protocol Terazosin HCl 2 mg 05/24/25 21:00 05/24/25 20:47 Terazosin Hcl 1 Mg Capsule PO 2 mg QHS KENAN Administration Radiology Results: ITS Impressions Chest X-Ray 05/23/25 19:07 Impression: No acute cardiopulmonary abnormality. Chest CTA 05/23/25 19:23 IMPRESSION: Negative for pulmonary embolism. No acute process. Incidental findings detailed above Head/Sinuses CT 05/25/25 07:34 IMPRESSION: 1. 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 2. 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 3. Stable extensive nonspecific cerebral white matter disease, which likely represents chronic small vessel ischemic disease. 4. Mild mucosal thickening in the paranasal sinuses. Labs Labs: Laboratory Results - last 24 hr 05/24/25 05/24/25 05/25/25 08:32 13:57 06:26 WBC 4.6 RBC 3.60 L Hgb 11.9 L Hct 35.8 L MCV 99.4 MCH 33.1 MCHC 33.2 RDW 12.8 Plt Count 155 MPV 9.7 Sodium 131 L Potassium 3.9 Chloride 102 Carbon Dioxide 26 Anion Gap 3 L BUN 11 Creatinine 0.85 Estim Creat Clear Calc 52 Estimated GFR > 60 Glucose 90 Calcium 9.0 Magnesium 1.9 Troponin I 23.300 H* 16.900 H* D 11.100 H*
[2025-05-25] MEDS: PERFLUTREN LIPID MICROSPHERES 1.5 ML VIAL DILUTED TO 10 ML TOTAL VOLUME IV PUSH (13:50)
--- NOTE | 2025-05-25 15:14 | IVDEFINITY ---
Prior to administration of IV Definity the patient was educated on the risks and benefits of the imaging enhancing agent including potential adverse side effects. The patient verbalized understanding. Allergies were verified. No exclusion criteria were identified and at least one of the following inclusion criteria were met: 1) physician request, 2) patient technically difficult to image (per the [place] [employer]chocardi[employer] guidelines of two or more segments not discernable within the apical view), or 3) questionable left ventricular function. ?
[2025-05-25] MEDS: PANTOPRAZOLE 40 MG TABLET PO (20:40)
[2025-05-25] MEDS: MEMANTINE HCL XR 28 MG CAP PO (20:40)
[2025-05-25] MEDS: TERAZOSIN HCL 1 MG CAPSULE 2 MG PO (20:40)
[2025-05-25] MEDS: DONEPEZIL HCL 5 MG TABLET PO (20:41)
[2025-05-25] MEDS: LOSARTAN POTASSIUM 50 MG TABLET PO (20:41)
[2025-05-25] MEDS: MELATONIN 3 MG TABLET PO (20:41)
[2025-05-25] MEDS: CYANOCOBALAMIN 500 MCG TABLET PO (20:41)
[2025-05-25] MEDS: ATORVASTATIN 40 MG TABLET PO (20:41)
[2025-05-26] VITALS (12 sets, daily range): BP systolic 98–148; BP diastolic 58–83; PULSE 48–79; RESP 12–20; TEMP 35.8–36.6; O2SAT 98–100
[2025-05-26 04:33] LABS: Anion Gap 5 mmol/L (4-12); Blood Urea Nitrogen 13 mg/dL (9-20); Calcium 9.1 mg/dL (8.4-10.2); Carbon Dioxide 27 mmol/L (22-30); Chloride 102 mmol/L (98-107); Estimated CRCL calculation 48 ml/min; Estimated Glomerular Filt Rate > 60; Glucose 105 mg/dL (65-110); Magnesium 1.9 mg/dL (1.6-2.3); Potassium 4.0 mmol/L (3.4-5.0); Sodium 134 mmol/L (137-145)
--- NOTE | 2025-05-26 05:00 | ECG_ITS ---
Test Date: 2025-05-26 05:58:15 Measurements Intervals [place] Rate: 55 P: 76 GA: 142 QRS: -23 QRSD: 94 T: 5 QT: 502 QTc: 482 Interpretive Statements SINUS BRADYCARDIA WITH OCCASIONAL SUPRAVENTRICULAR PREMATURE COMPLEXES MARKED T-WAVE ABNORMALITY, CONSIDER ANTERIOR ISCHEMIA [-0.5+ mV T WAVE IN V3/V4] INTERPRETATION BASED ON A DEFAULT AGE OF 40 YEARS Compared to ECG 05/25/2025 05:42:02 Myocardial infarct finding now present Incomplete right bundle-branch block no longer present T-wave abnormality still present Possible ischemia still present Electronically Signed On 05-26-2025 17:57:40 POWER GENERATION ENGINEER by Shelly Freitas M.D.
--- NOTE | 2025-05-26 06:16 | NBIDPHOTO ---
PHOTO ONLY - See Nursing Notes and/ or assessments for documentation.ECG done this am. QT 502. received order from Dr. Mckeon to stop aricept.
--- NOTE | 2025-05-26 07:51 | PM.PNCARD ---
Progress Note: A&P Assessment and Plan (1) Atrial fibrillation with RVR: Code(s): I48.91 - Unspecified atrial fibrillation Status: Acute Assessment and Plan: Back in sinus rhythm. On aspirin 325 mg daily. Started low dose Amiodarone 200 mg daily due to potential risk of QT prolongation with Aricept. Monitor EKG daily while hospitalized. QT interval is OK for last 2 days. Due to risk of falls and with subdural hygroma, will leave on aspirin rather than start anticoagulation. This was agreed by his POA, Rafa Roberson. Appreciate neurology note. (2) Non-ST elevation [place] (NSTEMI): Code(s): I21.4 - Non-ST elevation (NSTEMI) myocardial infarction Status: Acute Assessment and Plan: Probably exacerbated by demand ischemia from rapid atrial fibrillation. He does have T wave inversions this time s/o coronary ischemia. Was on heparin drip until troponin peaked. Troponin peaked at 23. Need to keep him in sinus rhythm to prevent chest pain and ischemia. Discussed on 05/24/25 at length with his son, Rafa KWADWO Roberson, about his situation, and he is in agreement with conservative medical management given dementia and subdural hygroma. He agrees to treatment with aspirin and to add antiarrhythmic medication to maintain sinus rhythm. 05/25/25 Echo: EF 45-50%, anteroseptum is hypokinetic, grade I diastolic dysfunction (E/e' 8), mild LAE, trace AI/TR, Aortic root mildly dilated at 4.2 cm. No further cardiac workup, will sign off. Please call with any questions. (3) Hypertension: Code(s): I10 - Essential (primary) hypertension Status: Acute Assessment and Plan: Stable. (4) Hyperlipidemia: Code(s): E78.5 - Hyperlipidemia, unspecified Status: Acute Assessment and Plan: On Atorvastatin. (5) Dementia: Qualifiers: Dementia type: Alzheimer's Alzheimer's disease onset: late onset Dementia severity: severe Dementia behavioral or psychological symptom: without behavioral, psychotic, or mood disturbance or anxiety Qualified Code(s): G30.1 - Alzheimer's disease with late onset; F02.C0 - Dementia in other diseases classified elsewhere, severe, without behavioral disturbance, psychotic disturbance, mood disturbance, and anxiety Code(s): F03.90 - Unspecified dementia, unspecified severity, without behavioral disturbance, psychotic disturbance, mood disturbance, and anxiety Status: Acute Assessment and Plan: Advanced. (6) Subdural hygroma: Code(s): G96.08 - Other cranial cerebrospinal fluid leak Status: Acute Assessment and Plan: Appreciate Neurology note. Subjective Date/time seen: 05/26/25 07:51 Interval history: Denies chest pain or sob. Exam Const: General: cooperative, healthy appearing and comfortable Orientation/consciousness: oriented to person, oriented to place and oriented to time Resp: Auscultation: clear to auscultation bilaterally, no crackles, no rales, no rhonchi and no wheezes Cardio: Rate: regular rate Rhythm: regular rhythm Heart sounds: no murmurs Peripheral pulses: dorsalis pedis present Neuro: General: oriented to person, oriented to place and oriented to time Extrem: Right lower extremity: no edema Left lower extremity: no edema Objective Data Vital Signs Vital Signs: Vital Signs - 24 hr 05/25/25 07:59 05/25/25 08:00 05/25/25 08:00 Temperature 98.2 F Pulse Rate 65 103 H 63 Respiratory Rate 20 20 Blood Pressure 141/88 H Pulse Oximetry 100 100 Oxygen Delivery Room Air 05/25/25 08:00 05/25/25 10:00 05/25/25 12:00 Temperature Pulse Rate 63 79 61 Respiratory Rate 20 Blood Pressure Pulse Oximetry 100 Oxygen Delivery Room Air 05/25/25 12:00 05/25/25 12:00 05/25/25 14:00 Temperature 98.3 F Pulse Rate 61 58 L 61 Respiratory Rate 18 Blood Pressure 112/70 Pulse Oximetry 95 Oxygen Delivery 05/25/25 16:00 05/25/25 16:00 05/25/25 16:00 Temperature 98 F Pulse Rate 615 H 59 L 55 L Respiratory Rate 18 18 Blood Pressure 148/88 H Pulse Oximetry 95 99 Oxygen Delivery Room Air 05/25/25 18:00 05/25/25 20:00 05/25/25 20:00 Temperature 97.3 F L Pulse Rate 61 58 L Respiratory Rate 20 Blood Pressure 127/91 H Pulse Oximetry 98 Oxygen Delivery Room Air 05/25/25 20:00 05/25/25 22:26 05/26/25 00:00 Temperature Pulse Rate 63 56 L Respiratory Rate Blood Pressure Pulse Oximetry Oxygen Delivery Room Air 05/26/25 00:00 05/26/25 00:00 05/26/25 02:09 Temperature 97.6 F Pulse Rate 55 L 79 54 L Respiratory Rate 18 Blood Pressure 137/83 Pulse Oximetry 100 Oxygen Delivery 05/26/25 04:00 05/26/25 04:00 05/26/25 06:18 Temperature 97.8 F Pulse Rate 77 48 L 56 L Respiratory Rate 20 Blood Pressure 144/76 H Pulse Oximetry 98 Oxygen Delivery Intake/Output Intake/Output: Intake & Output 05/23/25 05/24/25 05/25/25 05/26/25 23:59 23:59 23:59 23:59 Intake Total 430 1280 250 Output Total 225 530 200 Balance 205 750 50 Meds/Results Medications: Active Medications Generic Name Dose Route Start Last Admin Trade Name Freq PRN Reason Stop Dose Admin Amiodarone HCl 200 mg 05/24/25 08:40 05/25/25 07:59 Amiodarone Hcl 200 Mg Tablet PO 200 mg DAILY@0800 KENAN Administration Aspirin 325 mg 05/25/25 09:00 05/25/25 07:59 Aspirin 325 Mg Enteric Tablet PO 325 mg QAM KENAN Administration Atorvastatin Calcium 40 mg 05/24/25 21:00 05/25/25 20:41 Atorvastatin 40 Mg Tablet PO 40 mg QHS KENAN Administration Cyanocobalamin 500 mcg 05/24/25 21:00 05/25/25 20:41 Cyanocobalamin 500 Mcg Tablet PO 500 mcg HS KENAN Administration Docusate Sodium 100 mg 05/24/25 04:08 Docusate Sodium 100 Mg Capsule PO BID PRN Constipation Fluticasone Propionate 1 spray 05/24/25 09:00 05/25/25 20:41 Fluticasone Propionate 0.05% Na Spr 16 Gm Btl (*Bkc) NASAL 1 spray Q12HR KENAN Administration Losartan Potassium 50 mg 05/24/25 21:00 05/25/25 20:41 Losartan Potassium 50 Mg Tablet PO 50 mg QHS KENAN Administration Melatonin 3 mg 05/24/25 21:00 05/25/25 20:41 Melatonin 3 Mg Tablet PO 3 mg HS KENAN Administration Memantine 28 mg 05/24/25 21:00 05/25/25 20:40 Memantine Hcl Xr 28 Mg Cap PO 28 mg QHS KENAN Administration Nitroglycerin 0.4 mg 05/24/25 04:08 Nitroglycerin Sl 0.4 Mg Tablet SUBLINGUAL Q5MIN PRN Chest Pain Pantoprazole Sodium 40 mg 05/24/25 21:00 05/25/25 20:40 Pantoprazole 40 Mg Tablet PO 40 mg QHS KENAN Administration Terazosin HCl 2 mg 05/24/25 21:00 05/25/25 20:40 Terazosin Hcl 1 Mg Capsule PO 2 mg QHS KENAN Administration Radiology Results: ITS Impressions Chest X-Ray 05/23/25 19:07 Impression: No acute cardiopulmonary abnormality. Chest CTA 05/23/25 19:23 IMPRESSION: Negative for pulmonary embolism. No acute process. Incidental findings detailed above Head/Sinuses CT 05/25/25 07:34 IMPRESSION: 1. 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 2. 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 3. Stable extensive nonspecific cerebral white matter disease, which likely represents chronic small vessel ischemic disease. 4. Mild mucosal thickening in the paranasal sinuses. Labs Labs: Laboratory Results - last 24 hr 05/26/25 03:51 Sodium 134 L Potassium 4.0 Chloride 102 Carbon Dioxide 27 Anion Gap 5 BUN 13 Creatinine 0.93 Estim Creat Clear Calc 48 Estimated GFR > 60 Glucose 105 Calcium 9.1 Magnesium 1.9
--- NOTE | 2025-05-26 08:23 | PM.DS ---
DS: Admitting Diagnosis Discharge Date 05/26/2025 Admitting Diagnosis Chest pressure DS: Discharge Diagnosis Discharge Diagnosis (1) CAD (coronary artery disease): Qualifiers: Coronary Disease-Associated Artery/Lesion type: [place] artery [place] vs. transplanted heart: [place] heart Associated angina: with stable angina Qualified Code(s): I25.118 - Atherosclerotic heart disease of [place] coronary artery with other forms of angina pectoris Code(s): I25.10 - Atherosclerotic heart disease of [place] coronary artery without angina pectoris Status: Acute (2) Non-ST elevation [place] (NSTEMI): Code(s): I21.4 - Non-ST elevation (NSTEMI) myocardial infarction Status: Acute (3) Atrial fibrillation with RVR: Code(s): I48.91 - Unspecified atrial fibrillation Status: Acute DS: Summary Hospital Course Hospital Course: 89-year-old male history of dementia, BPH, essential hypertension, mild pulmonary hypertension, hyperlipidemia, diastolic dysfunction, paroxysmal atrial fibrillation with prior NSTEMI in AFib with RVR presents to [facility] ER on 05/23/2025 complaining of chest pressure. Patient seen by his established barking machine feeder Dr. Cervantes. Multiple discussions held with the patient's son/KWADWO Roberson. They elected to pursue medical management. Troponin did peak in patient received heparin GTT in till then. He had no more chest pressure. He is continued on aspirin 325 mg p.o. q.day. patient also had atrial fibrillation with RVR, now back in sinus rhythm. Amiodarone 200 mg p.o. q.day started. Patient has a previous craniotomy with residual dural hygroma. Neurology was consulted, suggested taking caution in using anticoagulation, Cardiology and patient's son elected forego anticoagulation and continue aspirin only. CT head/sinuses on 05/25/2025 IMPRESSION: 1. 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 2. 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 3. Stable extensive nonspecific cerebral white matter disease, which likely represents chronic small vessel ischemic disease. 4. Mild mucosal thickening in the paranasal sinuses. Chest CTA on 05/23 25-for PE, no acute process. 05/25/25 Echo: EF 45-50%, anteroseptum is hypokinetic, grade I diastolic dysfunction (E/e' 8), mild LAE, trace AI/TR, Aortic root mildly dilated at 4.2 cm. The patient is discharged in stable condition back to his usual living [facility] on 05/26/2025. He remains in normal sinus rhythm, discharged on his [employer] losartan, atorvastatin, aspirin 325 mg. Prescription made for amiodarone 200 mg p.o. q.day. follow-up with Cardiology/PCP. All other questions and concerns were answered to satisfaction, risks versus benefits of medication discussed. The patient was full code. Donepezil discontinue, to follow with PCP. Time Spent with Patient Time attestation: Total time spent providing and/or coordinating discharge services: Time spent: Greater than 30 minutes Exam Const: General: comfortable and no acute distress HENMT: Mouth: Yes moist mucous membranes Eyes: Pupils: Equal, round and reactive pupils present Neck: Neck: supple Resp: Effort & Inspection: normal respiratory effort Auscultation: clear to auscultation bilaterally Cardio: Rate: regular rate Rhythm: regular rhythm GI: Inspection: non-distended GI Palp: Yes Soft to palpation Neuro: Motor exam (neuro): 5/5 motor strength present throughout Extrem: General: no edema DS: Data Data Completed and Pending Labs on day of discharge: Labs from last 24 hours 05/26/25 03:51 Sodium 134 L Potassium 4.0 Chloride 102 Carbon Dioxide 27 Anion Gap 5 BUN 13 Creatinine 0.93 Estim Creat Clear Calc 48 Estimated GFR > 60 Glucose 105 Calcium 9.1 Magnesium 1.9 Discharge Plan Discharge Attending physician on discharge: Tia Yu Consulting providers: Miquel Cervantes; Smith Trevino Discharging Clinician: Tia Yu Patient Disposition: NH Skilled Nursing/Asst Living Activity: november shower Diet: heart healthy Patient Instructions: Antibiotic Form, Heart Attack (GEN), Chest Pain (GEN) Patient Language: Gabonese Stand Alone Forms: General Discharge Information Discharge Medications: New amiodarone [Pacerone] 200 mg Tablet 200 mg PO DAILY@0800 Qty: 30 0RF Continued losartan 50 mg tablet 50 mg PO QHS nitroglycerin [Nitrostat] 0.4 mg Tablet, Sublingual 0.4 mg sublingual Q5MIN PRN (Reason: Chest Pain) Rx Instructions: x 3 doses docusate sodium 100 mg Capsule 100 mg PO BID PRN (Reason: constipation) cyanocobalamin (vitamin B-12) 500 mcg tablet 500 mcg PO HS aspirin 325 mg tablet,delayed release (DR/EC) 325 mg PO QHS terazosin 2 mg capsule 2 mg PO QHS omeprazole 20 mg capsule,delayed release(DR/EC) 20 mg PO QHS memantine 28 mg capsule,sprinkle,ER 24hr 28 mg PO QHS atorvastatin 40 mg Tablet 40 mg PO QHS Qty: 30 0RF melatonin 3 mg Tablet 3 mg PO HS Qty: 30 0RF fluticasone propionate 50 mcg/actuation spray,suspension See Rx Instructions .ROUTE .COMPLEX Qty: 48 0RF Dose Instruction: SHAKE LIQUID AND USE 1 SPRAY IN EACH NOSTRIL EVERY 12 HOURS Rx Instructions: SHAKE LIQUID AND USE 1 SPRAY IN EACH NOSTRIL EVERY 12 HOURS Held donepezil [Aricept] 5 mg tablet 5 mg PO QHS Qty: 90 3RF Hold Instructions: Review with PCP/Cardiology Date of admission: 05/23/25 20:16 Primary Care Provider: Jaspal Pate Admitting Provider: Radha Mckeon Attending physician on admission: Radha Mckeon Condition: Stable Hospitalist MIPS Heart Failure (Exclusion) Patient has history of Heart Transplant or Left Ventricular Assistive Device?: No IF YES, STOP HERE Heart Failure (Qualifier) Patient has current or prior documentation of LVEF less than or equal to 40%, or mod/servere depressed LVSF?: No IF NO, STOP HERE
--- NOTE | 2025-05-26 10:10 | ECG_ITS ---
Test Date: 2025-05-26 10:14:38 Measurements Intervals [place] Rate: 58 P: 65 MO: 141 QRS: -20 QRSD: 97 T: -2 QT: 486 QTc: 480 Interpretive Statements SINUS BRADYCARDIA WITH OCCASIONAL SUPRAVENTRICULAR PREMATURE COMPLEXES MARKED T-WAVE ABNORMALITY, CONSIDER ANTERIOR ISCHEMIA [-0.5+ mV T WAVE IN V3/V4] Compared to ECG 05/26/2025 05:58:15 T-wave abnormality still present Possible ischemia still present Electronically Signed On 05-26-2025 18:01:44 RRT by Shelly Freitas M.D.
--- NOTE | 2025-05-26 10:11 | PCOTNOTE ---
The patient initial occupational therapy evaluation was not able to be completed on 05/26 due to patient returning to bed due to being pale/light headed/dizzy with nursing staff. They were assessing patient's blood sugar levels and vitals at this time. Will plan to evaluate when medically stable.
[2025-05-26] MEDS: FLUTICASONE PROPIONATE 0.05% NA SPR 16 GM BTL (*BKC) 1 SPRAY NASAL (10:40)
[2025-05-26] MEDS: ASPIRIN 325 MG ENTERIC TABLET PO (10:40)
[2025-05-26] MEDS: AMIODARONE HCL 200 MG TABLET PO (10:40)
[2025-05-26 12:34] LABS: Troponin I 5.240 ng/mL (0.000-0.034)
[2025-05-26 17:19] LABS: Troponin I 5.910 ng/mL (0.000-0.034)
== END 2025-05-26 17:54 | DRG 281 ==
LOC: ANHED 20:56 → ANHIMU 21:12
PROVIDERS: Emergency Medicine; Internal Medicine Cardiovascular Disease; Admitting Provider Internal Medicine; Emergency Provider Student in an Organized Health Care Education/Training Program; PCP Family Medicine; Visit Provider General Practice
DX: I48.0 Paroxysmal atrial fibrillation (principal); G96.00 Cerebrospinal fluid leak, unspecified; I21.A1 Myocardial infarction type 2; I25.118 Atherosclerotic heart disease of native coronary artery with other forms of angina pectoris; N40.0 Benign prostatic hyperplasia without lower urinary tract symptoms; E78.5 Hyperlipidemia, unspecified; I10 Essential (primary) hypertension; G30.9 Alzheimer's disease, unspecified; F02.80 Dementia in other diseases classified elsewhere, unspecified severity, without behavioral disturbance, psychotic disturbance, mood disturbance, and anxiety; K58.9 Irritable bowel syndrome, unspecified; Z85.46 Personal history of malignant neoplasm of prostate; Z90.49 Acquired absence of other specified parts of digestive tract
CPT/HCPCS: 36415; 70450; 70486; 71045; 71275; 80048; 80053; 82948; 83690; 83735; 84484; 85025; 85027; 85610; 85730; 93005; 93306; 96374; 96375; 97161; 97165; 99285; A9270; C8929; J1163; J1644; Q9957; Q9967